=== PATIENT | female | born 1935 | race Caucasian/White ===

== ENCOUNTER 2019-06-12 20:44 | Inpatient (IN) | payer MEDICARE, OTHER ==
[2019-06-12] MEDS ORDERED: HYDROmorphone 0.5 MG/0.5 ML Syringe IVPUSH ONE ×2 (20:56→21:47)
[2019-06-12] MEDS ORDERED: Dextrose 5%-0.9% NaCl 1,000 ML IV SCH ×2 (21:00→23:45)
--- NOTE | 2019-06-12 21:03 | EDM.PDOC ---
ED HPI GENERAL MEDICAL PROBLEM - General Chief Complaint: Trauma Stated Complaint: [facility] Time Seen by Provider: 06/12/19 20:50 Source of Information: Reports: Patient, EMS, Family History Limitations: Reports: No Limitations - History of Present Illness INITIAL COMMENTS - FREE TEXT/NARRATIVE: 84-year-old female presents to the ED per [facility] after falling at home. She was able to use her cell phone to summon her grandsons and her daughter to for help. They did go to her residence and found that she was unable to stand or bear any weight on the right hip due to severe pain. When paramedics arrived however she was standing on her left leg and not putting any weight on the right side. She was being held up by her grandson and daughter. Therefore the ambulance was summoned. She states she did hit the back of her head ,shebelieves on the dresser and has a small hematoma right occipital scalp. History suggests that she is on Plavix daily due to peripheral vascular disease and previous vascular surgery left femoral artery with I believe a graft placement. Also had recent surgery to her right arm for a tendon rupture on the right fifth finger. Weeks ago and she is in a splint on the right arm. Dr Strauss did this surgery at [place] is some form of tendon repair in concert with the fourth extensor tendon. Paramedics did give her Zofran 4 mg IV and pain medication of which I am not sure. Onset: Today Onset Date: 06/12/19 Onset Time: 19:50 Duration: Minutes:, Getting Worse Location: Reports: Head, Lower Extremity, Right Quality: Reports: Ache (Right hip pain), Throbbing Severity: Severe Improves with: Reports: Rest Worsens with: Reports: Movement Context: Reports: Other (Simply lost her balance and fell at home was folding some clothes.). Denies: Activity, Exercise, Lifting, Sick Contact, Trauma Associated Symptoms: Reports: No Other Symptoms, Loss of Appetite (Appetite is been poor since right arm surgery 3 weeks ago and she is right-hand dominant and is in a splint. This is made), Shortness of Breath. 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 [Unable to Verify Home Med List] 06/12/19 [History] Past Medical History Cardiovascular History: Reports: High Cholesterol, Hypertension, PVD (She has had severe peripheral vascular disease involving her left lower extremity and has had a graft placed in the left femoral artery.) Respiratory History: Reports: COPD (Not on oxygen.) Endocrine/Metabolic History: Reports: Osteopenia, Osteoporosis - Past Surgical History Female Surgical History: Reports: Hysterectomy, Salpingo-Oophorectomy ( Bilateral) Musculoskeletal Surgical History: Reports: Other (See Below) (Recent extensor tendon repair dorsal aspect of right hand. She states she was putting her hand into a glove and felt sudden onset of pain in her right fifth dorsal finger. Apparently she was identified to have ruptured the extensor tendon and she's had some form of tendon repair by Dr. Strauss in concert with the right fourth extensor tendon. The surgery was performed about 3 weeks ago and she remains in a splint on the right upper extremity) Social & Family History - Living Situation & Occupation Living situation: Reports: Occupation: Employed (He is still working 45 hours a week.) Review of Systems - Review of Systems Review Of Systems: See Below Constitutional: Denies: Chills, Diaphoresis, Fever, Weakness, Other Eyes: Reports: No Symptoms Ears: Reports: No Symptoms Nose: Reports: No Symptoms Mouth/Throat: Reports: No Symptoms Respiratory: Reports: Shortness of Breath, Cough (Chronic minimal cough nonproductive). Denies: Wheezing, Pleuritic Chest Pain (On exertion), Sputum Cardiovascular: Denies: Chest Pain, Edema, Irregular Heart Rate, Lightheadedness , Palpitations, Syncope, Other GI/Abdominal: Reports: Other (Kathryn positive constipation particularly as of late she believes due to not eating as normal as she regularly does since right arm surgery) Genitourinary: Reports: Other (Urinary frequency with stress incontinence) Musculoskeletal: Reports: Neck Pain, Shoulder Pain, Back Pain, Joint Pain ( Knees and hips at times) Skin: Reports: No Symptoms, Bruising (There is easily as she is on Plavix and aspirin.) Neurological: Reports: No Symptoms Psychiatric: Reports: No Symptoms ED EXAM, GENERAL - Physical Exam Exam: See Below Exam Limited By: No Limitations General Appearance: Alert, WD/WN, No Apparent Distress, Moderate Distress Eye Exam: Bilateral Eye: Normal Inspection (Previous cataract extractions and intraocular lens placements.) Throat/Mouth: Normal Inspection, Normal Lips, Normal Oropharynx, Other Head: Other (He has a mild 2.5 cm hematoma over her right superior occipital process. Tender to palpation) Neck: Normal Inspection, Supple, Non-Tender, Full Range of Motion. No: Carotid Bruit, Lymphadenopathy (L), Lymphadenopathy (R), Thyromegaly Respiratory/Chest: No Respiratory Distress, Lungs Clear, No Accessory Muscle Use , Decreased Breath Sounds. No: Crackles, Rhonchi, Wheezing Cardiovascular: No Edema (Frequent ectopic beats. Initially felt she was in a defibrillation but monitor shows frequent PACs), No Gallop, No JVD, Irregularly Irregular. No: Normal Peripheral Pulses (The decreased breath sounds to the lower lung isidro bilaterally.), Regular Rate, Rhythm Peripheral Pulses: 1+: Posterior Tibial (L), Posterior Tibial (R), Dorsalis Pedis (L), Dorsalis Pedis (R), 2+: Carotid (L), Carotid (R), Radial (L), Radial (R) GI/Abdominal: Normal Bowel Sounds, Soft, Non-Tender, No Organomegaly, No Abnormal Bruit, Pelvis Stable, Other (Right abdomen. Palpable left hemicolon. Well-healed Pfannenstiel incision from previous hysterectomy) Back Exam: Decreased Range of Motion, Other Extremities: Normal Inspection, No Pedal Edema, Other (She can barely lift the left leg off the gurney because it causes severe pain of the right hip. She is unable to lift the right leg off the gurney at all. The leg appears shortened and externally rotated compatible with fractured hip. When appreciated on palpation around the right hip .) Neurological: Alert, Oriented, CN II-XII Intact, Normal Cognition Psychiatric: Normal Affect, Normal Mood Skin Exam: Warm, Dry, Intact, Normal Color, No Rash EKG INTERPRETATION EKG Date: 06/12/19 Time: 21:33 Rhythm: NSR Rate (Beats/Min): 85 (Reprinted premature atrial contractions clinically.) [place]: Normal P-Wave: Enlarged (Consider biatrial hypertrophy.) QRS: Other (Early R-wave transition consider right ventricular hypertrophy/ septal hypertrophy pattern.) ST-T: Other (There is a diffuse early repolarization pattern throughout all leads.) QT: Normal EKG Interpretation Comments: Abnormal ECG Course - Vital Signs Last Recorded V/S: Last Vital Signs Temp 36.7 C 06/12/19 21:53 Pulse Resp 15 06/12/19 21:53 BP 138/65 06/12/19 21:53 Pulse Ox 92 L 06/12/19 21:53 - Orders/Labs/Meds Orders: Active Orders 24 hr Category Date Time Status EKG Documentation Completion [RC] STAT Care 06/12/19 20:57 Inactive EKG Documentation Completion [RC] STAT Care 06/12/19 21:00 Active Mendez Catheter Insertion [Insert Urinary Catheter] [OM. Care 06/12/19 21:00 Ordered PC] Q24H Urinary Catheter Assessment [RC] ASDIRECTED Care 06/12/19 20:59 Active Chest 1V Frontal [CR] Stat Exams 06/12/19 20:57 Taken Femur Min 2V Rt [CR] Stat Exams 06/12/19 21:02 Taken Head wo Cont [CT] Stat Exams 06/12/19 21:00 Taken Pelvis 1V or 2V [CR] Stat Exams 06/12/19 21:01 Taken MAGNESIUM [CHEM] AM Lab 06/13/19 05:11 Ordered MAGNESIUM [CHEM] AM Lab 06/14/19 05:11 Ordered MAGNESIUM [CHEM] AM Lab 06/15/19 05:11 Ordered Dextrose 5%-0.9% NaCl [Dextrose 5%-Normal Saline] 1,000 Med 06/12/19 21:00 Active ml IV ASDIRECTED Medication Orders Dextrose/Sodium Chloride (Dextrose 5%-Normal Saline) 1,000 mls @ 150 mls/hr IV ASDIRECTED MAYNOR Last Admin: 06/12/19 21:38 Dose: 150 mls/hr Labs: Laboratory Tests 06/12/19 06/12/19 06/12/19 Range/Units 20:52 20:57 20:57 WBC 8.72 (3.98-10.04) K/mm3 RBC 4.37 (3.98-5.22) M/mm3 Hgb 12.7 (11.2-15.7) gm/dl Hct 38.9 (34.1-44.9) % MCV 89.0 (79.4-94.8) fl MCH 29.1 (25.6-32.2) pg MCHC 32.6 (32.2-35.5) g/dl RDW Std Deviation 40.9 (36.4-46.3) fL Plt Count 324 (182-369) K/mm3 MPV 10.7 (9.4-12.3) fl Neut % (Auto) 66.4 (34.0-71.1) % Lymph % (Auto) 16.2 L (19.3-51.7) % Freestone % (Auto) 13.4 H (4.7-12.5) % Eos % (Auto) 3.1 (0.7-5.8) Baso % (Auto) 0.3 (0.1-1.2) % Neut # (Auto) 5.79 (1.56-6.13) K/mm3 Lymph # (Auto) 1.41 (1.18-3.74) K/mm3 Fre[place] # (Auto) 1.17 H (0.24-0.36) K/mm3 Eos # (Auto) 0.27 (0.04-0.36) K/mm3 Baso # (Auto) 0.03 (0.01-0.08) K/mm3 PT 10.9 (9.7-12.0) SECONDS INR 1.00 APTT (22-31) SECONDS Sodium (136-145) mEq/L Potassium (3.5-5.1) mEq/L Chloride (98-107) mEq/L Carbon Dioxide (21-32) mEq/L Anion Gap (5-15) BUN (7-18) mg/dL Creatinine (0.55-1.02) mg/dL Est Cr Clr Drug Dosing Estimated GFR (MDRD) (>60) mL/min BUN/Creatinine Ratio (14-18) Glucose (83-115) mg/dL Calcium (8.5-10.1) mg/dL Magnesium 2.1 (1.8-2.4) mg/dl Total Bilirubin (0.2-1.0) mg/dL AST (15-37) U/L ALT (14-59) U/L Alkaline Phosphatase (46-116) U/L NT-Pro-B Natriuret Pep (0-450) pg/mL Total Protein (6.4-8.2) g/dl Albumin (3.4-5.0) g/dl Globulin gm/dL Albumin/Globulin Ratio (1-2) Urine Color (Yellow) Urine Appearance (Clear) Urine pH (5.0-8.0) Ur Specific Odem (1.005-1.030) Urine Protein (Negative) Urine Glucose (UA) (Negative) Urine Ketones (Negative) Urine Occult Blood (Negative) Urine Nitrite (Negative) Urine Bilirubin (Negative) Urine Urobilinogen (0.2-1.0) Ur Leukocyte Esterase (Negative) Urine RBC (0-5) /hpf Urine WBC (0-5) /hpf Ur Squamous Epith Cells (0-5) /hpf Urine Bacteria (FEW) /hpf Urine Mucus (FEW) /hpf 06/12/19 06/12/19 06/12/19 Range/Units 20:57 20:57 20:57 WBC (3.98-10.04) K/mm3 RBC (3.98-5.22) M/mm3 Hgb (11.2-15.7) gm/dl Hct (34.1-44.9) % MCV (79.4-94.8) fl MCH (25.6-32.2) pg MCHC (32.2-35.5) g/dl RDW Std Deviation (36.4-46.3) fL Plt Count (182-369) K/mm3 MPV (9.4-12.3) fl Neut % (Auto) (34.0-71.1) % Lymph % (Auto) (19.3-51.7) % Fre[place] % (Auto) (4.7-12.5) % Eos % (Auto) (0.7-5.8) Baso % (Auto) (0.1-1.2) % Neut # (Auto) (1.56-6.13) K/mm3 Lymph # (Auto) (1.18-3.74) K/mm3 [place] # (Auto) (0.24-0.36) K/mm3 Eos # (Auto) (0.04-0.36) K/mm3 Baso # (Auto) (0.01-0.08) K/mm3 PT (9.7-12.0) SECONDS INR APTT 27 (22-31) SECONDS Sodium 134 L (136-145) mEq/L Potassium 3.7 (3.5-5.1) mEq/L Chloride 97 L (98-107) mEq/L Carbon Dioxide 27 (21-32) mEq/L Anion Gap 13.7 (5-15) BUN 18 (7-18) mg/dL Creatinine 0.9 (0.55-1.02) mg/dL Est Cr Clr Drug Dosing TNP Estimated GFR (MDRD) 59 (>60) mL/min BUN/Creatinine Ratio 20.0 H (14-18) Glucose 149 H (83-115) mg/dL Calcium 9.2 (8.5-10.1) mg/dL Magnesium (1.8-2.4) mg/dl Total Bilirubin 0.4 (0.2-1.0) mg/dL AST 34 (15-37) U/L ALT 31 (14-59) U/L Alkaline Phosphatase 112 (46-116) U/L NT-Pro-B Natriuret Pep 297 (0-450) pg/mL Total Protein 7.0 (6.4-8.2) g/dl Albumin 3.3 L (3.4-5.0) g/dl Globulin 3.7 gm/dL Albumin/Globulin Ratio 0.9 L (1-2) Urine Color (Yellow) Urine Appearance (Clear) Urine pH (5.0-8.0) Ur Specific Odem (1.005-1.030) Urine Protein (Negative) Urine Glucose (UA) (Negative) Urine Ketones (Negative) Urine Occult Blood (Negative) Urine Nitrite (Negative) Urine Bilirubin (Negative) Urine Urobilinogen (0.2-1.0) Ur Leukocyte Esterase (Negative) Urine RBC (0-5) /hpf Urine WBC (0-5) /hpf Ur Squamous Epith Cells (0-5) /hpf Urine Bacteria (FEW) /hpf Urine Mucus (FEW) /hpf 06/12/19 Range/Units 21:45 WBC (3.98-10.04) K/mm3 RBC (3.98-5.22) M/mm3 Hgb (11.2-15.7) gm/dl Hct (34.1-44.9) % MCV (79.4-94.8) fl MCH (25.6-32.2) pg MCHC (32.2-35.5) g/dl RDW Std Deviation (36.4-46.3) fL Plt Count (182-369) K/mm3 MPV (9.4-12.3) fl Neut % (Auto) (34.0-71.1) % Lymph % (Auto) (19.3-51.7) % [place] % (Auto) (4.7-12.5) % Eos % (Auto) (0.7-5.8) Baso % (Auto) (0.1-1.2) % Neut # (Auto) (1.56-6.13) K/mm3 Lymph # (Auto) (1.18-3.74) K/mm3 [place] # (Auto) (0.24-0.36) K/mm3 Eos # (Auto) (0.04-0.36) K/mm3 Baso # (Auto) (0.01-0.08) K/mm3 PT (9.7-12.0) SECONDS INR APTT (22-31) SECONDS Sodium (136-145) mEq/L Potassium (3.5-5.1) mEq/L Chloride (98-107) mEq/L Carbon Dioxide (21-32) mEq/L Anion Gap (5-15) BUN (7-18) mg/dL Creatinine (0.55-1.02) mg/dL Est Cr Clr Drug Dosing Estimated GFR (MDRD) (>60) mL/min BUN/Creatinine Ratio (14-18) Glucose (83-115) mg/dL Calcium (8.5-10.1) mg/dL Magnesium (1.8-2.4) mg/dl Total Bilirubin (0.2-1.0) mg/dL AST (15-37) U/L ALT (14-59) U/L Alkaline Phosphatase (46-116) U/L NT-Pro-B Natriuret Pep (0-450) pg/mL Total Protein (6.4-8.2) g/dl Albumin (3.4-5.0) g/dl Globulin gm/dL Albumin/Globulin Ratio (1-2) Urine Color Yellow (Yellow) Urine Appearance Clear (Clear) Urine pH 7.0 (5.0-8.0) Ur Specific Odem 1.020 (1.005-1.030) Urine Protein Negative (Negative) Urine Glucose (UA) Negative (Negative) Urine Ketones Trace H (Negative) Urine Occult Blood Negative (Negative) Urine Nitrite Negative (Negative) Urine Bilirubin Negative (Negative) Urine Urobilinogen 0.2 (0.2-1.0) Ur Leukocyte Esterase Negative (Negative) Urine RBC 0-5 (0-5) /hpf Urine WBC Not seen (0-5) /hpf Ur Squamous Epith Cells 0-5 (0-5) /hpf Urine Bacteria Rare (FEW) /hpf Urine Mucus Few (FEW) /hpf Meds: Medications Generic Name Dose Route Start Last Admin Trade Name Freq PRN Reason Stop Dose Admin Dextrose/Sodium Chloride 1,000 mls @ 150 mls/hr 06/12/19 21:00 06/12/19 21:38 Dextrose 5%-Normal Saline IV 150 mls/hr ASDIRECTED MAYNOR Administration Discontinued Medications Generic Name Dose Route Start Last Admin Trade Name Freq PRN Reason Stop Dose Admin Hydromorphone HCl 0.25 mg 06/12/19 20:56 06/12/19 21:06 Dilaudid IVPUSH 06/12/19 20:57 0.25 mg ONETIME ONE Administration Hydromorphone HCl 0.25 mg 06/12/19 21:47 06/12/19 21:48 Dilaudid IVPUSH 06/12/19 21:48 0.25 mg ONETIME ONE Administration - Radiology Interpretation Free Text/Narrative:: 84-year-old female presents to the ED per [facility] after suffering a fall in her own home this evening. He simply lost her balance while folding close and fell in her bedroom. She struck the back of her right hand on the dresser with no loss of conscious. She landed hard on her right hip and was unable to get up from the floor. Luckily she had her cell phone nearby and she was able to call her grandson and daughter for help. They attended her and identified that she could not stand or bear weight on the right side and therefore called the ambulance. She denies any loss of consciousness. She is on Plavix daily because of peripheral vascular disease and a baby aspirin. Examination reveals a small hematoma right occipital scalp. No injuries to the upper extremities. Right hand and arm are immobilized in a splint after she has had extensor tendon repair on the dorsal right hand 3 weeks ago involving the fifth and fourth extensor tendons. Soundly she ruptured the fifth extensor tendon simply by putting her hand into a glove. She has been in the splint for about 3 weeks. Of note she is right-hand dominant. His is made like difficulty in terms of getting to the bathroom and preparing food. Examination of her right lower extremity shows shortening and external rotation of the right hip and inability lift the leg from the gurney indicating a suspect right hip fracture. Plan she will have CT head done since she is on Plavix and likely is going to need surgical repair of her right hip. A chest x-ray will be done preoperatively. She has a history of COPD. Pelvis x-ray and right femur x-ray will be done as well. She will have routine lab work in preparation for potential surgery. Given Dilaudid 0.25 mg IV for further pain relief - Re-Assessments/Exams Free Text/Narrative Re-Assessment/Exam: 06/12/19 21:48 CT of the brain reveals age-appropriate degenerative changes with small vessel ischemic changes in both basal ganglia. Slight dilatation of the lateral ventricles. No skull fracture identified. Note cranial bleeding or mass effect identified. Chest x-ray reveals stigmata of COPD with marked hyperinflation of both lung isidro. There is some sclerosis of the aortic arch. Cardiac silhouette is normal. There is slight blunting of left costophrenic angle. No obvious rib fractures identified. Treated the pelvis reveals no abnormalities of the bones are quite osteopenic. X-ray of the right femur reveals a femoral neck fracture on the right side. This correlates with clinical exam. 06/12/19 21:56 Labs reveal a normal white count at 8.72 with a auto differential of 66% neutrophils. Hemoglobin is 12.7 with hematocrit of 38.9. MCV is 89.0. Platelet count 324,000. PT is 10.9 with an INR of 1.0. PTT is 27. Sodium slightly low at 134 with a potassium of 3.7. Chloride is 97 with a bicarbonate 27. And a gap is 13.7 BUNs 18. Creatinine is 0.9 with a GFR of 59. Glucose 149. Calcium is 9.2 liver function is normal. BNP is 297. Total protein 7.0 within oh be fraction of 3.3. Magnesium level is pending. I discussed the case with and he believes that he could do a total hip replacement for her on Monday when she is off the Plavix for 2 days. She takes the Plavix in the mornings. Does the case with Dr. Frias tenon machine operator hospitalist and I will write orders for admission to the hospital this time. Her another dose of Dilaudid 0.25 mg while in the ED. I discussed the findings with her family including her grandson and daughter and the patient and answered all their questions. Departure - Departure Time of Disposition: 22:20 Disposition: Admitted As Inpatient 64 Condition: Fair Clinical Impression: Peripheral vascular disease, COPD not affecting current episode of care, Minor closed head injury Fracture of hip, right, closed Qualifiers: Encounter type: initial encounter Qualified Code(s): S72.001A - Fracture of unspecified part of neck of right femur, initial encounter for closed fracture - Discharge Information *PRESCRIPTION DRUG MONITORING PROGRAM REVIEWED*: Not Applicable *COPY OF PRESCRIPTION DRUG MONITORING REPORT IN PATIENT BRI: Not Applicable Sepsis Event Note - Evaluation Sepsis Screening Result: No Definite Risk - Focused Exam Vital Signs: Vital Signs Temp Resp BP Pulse Ox 06/12/19 21:53 36.7 C 15 138/65 92 L Date Exam was Performed: 06/12/19 Time Exam was Performed: 22:46 - My Orders Last 24 Hours: My Active Orders 06/12/19 20:57 EKG Documentation Completion [RC] STAT Chest 1V Frontal [CR] Stat 06/12/19 20:59 Urinary Catheter Assessment [RC] ASDIRECTED 06/12/19 21:00 EKG Documentation Completion [RC] STAT Mendez Catheter Insertion [Insert Urinary Catheter] [OM.PC] Q24H Head wo Cont [CT] Stat Dextrose 5%-0.9% NaCl [Dextrose 5%-Normal Saline] 1,000 ml IV ASDIRECTED 06/12/19 21:01 Pelvis 1V or 2V [CR] Stat 06/12/19 21:02 Femur Min 2V Rt [CR] Stat 06/13/19 05:11 MAGNESIUM [CHEM] AM 06/14/19 05:11 MAGNESIUM [CHEM] AM 06/15/19 05:11 MAGNESIUM [CHEM] AM - Assessment/Plan Last 24 Hours: My Active Orders 06/12/19 20:57 EKG Documentation Completion [RC] STAT Chest 1V Frontal [CR] Stat 06/12/19 20:59 Urinary Catheter Assessment [RC] ASDIRECTED 06/12/19 21:00 EKG Documentation Completion [RC] STAT Mendez Catheter Insertion [Insert Urinary Catheter] [OM.PC] Q24H Head wo Cont [CT] Stat Dextrose 5%-0.9% NaCl [Dextrose 5%-Normal Saline] 1,000 ml IV ASDIRECTED 06/12/19 21:01 Pelvis 1V or 2V [CR] Stat 06/12/19 21:02 Femur Min 2V Rt [CR] Stat 06/13/19 05:11 MAGNESIUM [CHEM] AM 06/14/19 05:11 MAGNESIUM [CHEM] AM 06/15/19 05:11 MAGNESIUM [CHEM] AM
[2019-06-12] MEDS ORDERED: HYDROmorphone 0.5 MG/0.5 ML Syringe IVPUSH PRN (23:19)
[2019-06-12] MEDS ORDERED: Ondansetron 4 MG/2 ML SDV IVPUSH PRN (23:20)
[2019-06-13] MEDS ORDERED: Magnesium Sulfate/Water 2 GM in Premix Bag 1 BAG IV ONE (06:53)
[2019-06-13] MEDS: Dextrose 5%-0.9% NaCl 1,000 ML IV SCH ×2 (07:07→17:20)
[2019-06-13] MEDS: Acetaminophen/oxyCODONE 325-5 MG Tab PO PRN ×2 (07:11→11:33)
--- NOTE | 2019-06-13 07:13 | PCM.HP.2 ---
H&P History of Present Illness - General Date of Service: 06/13/19 Admit Problem/Dx: Admission Diagnosis/Problem Admission Diagnosis/Problem Hip fracture requiring operative repair Source of Information: Patient, Provider, RN, RN Notes Reviewed History Limitations: Reports: No Limitations - History of Present Illness Initial Comments - Free Text/Narative: Sherri Adkins is an 84 yo female who presented to ED on 06/12/2019 via [facility] after a fall at home. Reports she was folding close and simply lost her balance resulting in a fall on her left side. After a fall she was unable to bear weight on the right side. She reports she did hit her head on the dresser and does have a small hematoma to the right scalp. She is on Plavix daily due to PVD and a previous vascular surgery. She also recently underwent right fifth digit tendon repair with Dr. Strauss at [facility] in [place]. He has resulted in her right hand hand being in an immobilizer. She reports she is supposed to wear this for 3 weeks. She is right-hand dominant. In route paramedics gave her Zofran and a pain medication. In the ED temp was 36.7. Respirations 15. Blood pressure 138/65. Pulse ox 92% . Twelve-lead EKG is obtained showing a sinus rhythm 85 bpm with enlarged P waves and early R wave transition. Frequent PACs. There is also a diffuse early repolarization pattern throughout all leads. CBC is obtained and is unremarkable with a WBC of 8.72. Hemoglobin 12.7. Hematocrit 38.9. Blood sugar 324,000. PT is 10.9. INR 1.0. Magnesium is 2.1. APTT is 27. Sodium is slightly low at 134. Potassium 3.4. Chloride 97. Carbon oxide 27. Anion gap is 13.7. BUN is 18. Creatinine 0.9. Glucose is high at 149. Calcium 9.2. Bilirubin 0.4. AST is 34, ALT 31, alk phos 112. proBNP is 297. Albumin is slightly low at 3.3. UA is negative however few mucus is noted. She started on D5 NS and given Dilaudid for pain. Head CT is obtained which shows mild senescent change and nothing acute. Femur x-ray is obtained and shows a mildly displaced subcapital fracture within the right hip. Vascular calcification is also noted. Bony structures are osteopenic. Pelvic x-rays obtained showing a displaced right hip fracture and other nonacute findings. X- rays obtained showing tortuous thoracic aorta and right chest skinfold. There is blunting of the left lateral costophrenic angle which is believed to be chronic. Carotid artery calcification and scoliosis of the spine are noted. Degenerative change of the right glenohumeral joint. No acute parenchymal change. Nothing acute is suspected. "A, orthopedic surgeon, is contacted and reports because the patient is on Plavix she should be admitted to the hospital and he will plan on surgery Monday around noon after she has been off of her Plavix for [address] Rivera, hospitalist, is then contacted who agrees to accept the patient. He carries a history of HLD, HTN, PVD, s/p left lower extremity femoral artery grafting, COPD, osteopenia, osteoporosis, s/p right fifth digit extensor tendon repair with remaining right upper extremity splinting, glaucoma, hx/o lung cancer. She subsequently admitted to the medical floor on telemetry plan for surgery Monday (06/14/19) around noon. Right Anterior Hip Pain Score (Numeric/FACES): 4 - Related Data Allergies/Adverse Reactions: Allergies Allergy/AdvReac Type Severity Reaction Status Date / Time Unable to Assess Allergy Verified 06/12/19 21:31 Home Medications: Home Meds Aspirin [Halfprin] 81 mg PO DAILY 06/13/19 [History] Calcium Carbonate/Vitamin D3 [Calcium 600 + Vit D 200] 2 tab PO BID 06/13/19 [ History] Clopidogrel [Plavix] 75 mg PO DAILY 06/13/19 [History] Famotidine 20 mg PO BEDTIME 06/13/19 [History] Fluticasone Propionate [Flovent HFA 110 MCG] 1 puff INH BID 06/13/19 [History] Latanoprost [Xalatan] 1 drop EYEBOTH BEDTIME 06/13/19 [History] Magnesium Oxide 400 mg PO DAILY 06/13/19 [History] Potassium Chloride 30 meq PO DAILY 06/13/19 [History] Rosuvastatin [Crestor] 10 mg PO BEDTIME 06/13/19 [History] Salmeterol Xinafoate [Serevent Diskus] 1 blister INH BID 06/13/19 [History] Triamcinolone Acetonide [Triamcinolone Acetonide 0.1% Crm] 1 dose TOP BID PRN [History] amLODIPine [Norvasc] 7.5 mg PO DAILY 06/13/19 [History] guaiFENesin [Mucinex] 1,200 mg PO BID PRN 06/13/19 [History] hydroCHLOROthiazide [Hydrochlorothiazide] 25 mg PO DAILY 06/13/19 [History] Past Medical History HEENT History: Reports: Glaucoma, Impaired Vision Cardiovascular History: Reports: High Cholesterol, Hypertension, PVD (She has had severe peripheral vascular disease involving her left lower extremity and has had a graft placed in the left femoral artery.) Other Cardiovascular History: reports having clots removed from left leg Respiratory History: Reports: COPD (Not on oxygen.) Other OB/BYN History: hysterectomy Endocrine/Metabolic History: Reports: Osteopenia, Osteoporosis Oncologic (Cancer) History: Reports: Lung - Infectious Disease History Infectious Disease History: Reports: Influenza, Measles, Mumps, Pertussis ( Whooping Cough), Rubella - Past Surgical History Female Surgical History: Reports: Hysterectomy, Salpingo-Oophorectomy ( Bilateral) Musculoskeletal Surgical History: Reports: Other (See Below) (Recent extensor tendon repair dorsal aspect of right hand. She states she was putting her hand into a glove and felt sudden onset of pain in her right fifth dorsal finger. Apparently she was identified to have ruptured the extensor tendon and she's had some form of tendon repair by Dr. Strauss in concert with the right fourth extensor tendon. The surgery was performed about 3 weeks ago and she remains in a splint on the right upper extremity) Social & Family History - Family History Family Medical History: Noncontributory - Tobacco Use Smoking Status *Q: Former Smoker Used Tobacco, but Quit: Yes Month/Year Tobacco Last Used: 1987 Second Hand Smoke Exposure: No - Caffeine Use Caffeine Use: Reports: Coffee Other Caffeine Use: 1 cup in the morning - Recreational Drug Use Recreational Drug Use: No - Living Situation & Occupation Living situation: Reports: Occupation: Employed (He is still working 45 hours a week.) H&P Review of Systems - Review of Systems: Review Of Systems: See Below General: Reports: No Symptoms. Denies: Fever, Chills, Malaise, Weakness, Fatigue HEENT: Reports: No Symptoms. Denies: Headaches, Sore Throat Pulmonary: Reports: No Symptoms. Denies: Shortness of Breath, Wheezing, Pleuritic Chest Pain, Cough, Hemoptysis Cardiovascular: Reports: No Symptoms. Denies: Chest Pain, Palpitations, Dyspnea on Exertion, Lightheadedness Gastrointestinal: Reports: Constipation (chronic ). Denies: Abdominal Pain, Diarrhea, Nausea, Vomiting Genitourinary: Reports: No Symptoms. Denies: Pain Musculoskeletal: Reports: Shoulder Pain (chronic ), Back Pain (chroinc ), Hand Pain (right ), Leg Pain (right ), Joint Pain (chronic knee and hip) Skin: Reports: No Symptoms. Denies: Cyanosis Psychiatric: Reports: No Symptoms. Denies: Confusion Neurological: Reports: Difficulty Walking, Gait Disturbance. Denies: Pre- Existing Deficit Hematologic/Lymphatic: Reports: No Symptoms Immunologic: Reports: No Symptoms Exam - Exam Exam: See Below - Vital Signs Vital Signs: Last Vital Signs Temp 98.2 F 06/13/19 04:24 Pulse 78 06/13/19 04:24 Resp 18 06/13/19 04:24 BP 133/46 L 06/13/19 04:24 Pulse Ox 99 06/13/19 04:24 Weight: 122 lb 5 oz - Exam Quality Assessment: Supplemental Oxygen (2L), DVT Prophylaxis General: Alert, Oriented, Cooperative. No: Moderate Distress (mild laying down , severe pain with movement ) HEENT: Conjunctiva Clear, EACs Clear, EOMI, Hearing Intact, Mucosa Moist & [place] , Nares Patent, Posterior Pharynx Clear Neck: Supple, Trachea Midline Lungs: Clear to Auscultation, Normal Respiratory Effort, Decreased Breath Sounds. No: Crackles, Rales, Rhonchi, Wheezing Cardiovascular: Irregular Rhythm (2/2 frequent PACs) GI/Abdominal Exam: Normal Bowel Sounds, Soft, Non-Tender, No Distention (Female) Exam: Deferred Rectal (Female) Exam: Deferred Extremities: No Pedal Edema, Normal Capillary Refill, Leg Pain (right hip/leg pain ), Limited Range of Motion, Other (Right leg shortened and externally rotated ) Peripheral Pulses: 1+: Dorsalis Pedis (L), Dorsalis Pedis (R), 2+: Radial (L), Radial (R) Skin: Warm, Dry, Intact Neurological: Cranial Nerves Intact (grossly ) Neuro Extensive - Mental Status: Alert, Oriented x3, Normal Mood/Affect - Patient Data Lab Results Last 24 hrs: Laboratory Results - last 24 hr 06/12/19 06/12/19 06/12/19 Range/Units 20:52 20:57 20:57 WBC 8.72 (3.98-10.04) K/mm3 RBC 4.37 (3.98-5.22) M/mm3 Hgb 12.7 (11.2-15.7) gm/dl Hct 38.9 (34.1-44.9) % MCV 89.0 (79.4-94.8) fl MCH 29.1 (25.6-32.2) pg MCHC 32.6 (32.2-35.5) g/dl RDW Std Deviation 40.9 (36.4-46.3) fL Plt Count 324 (182-369) K/mm3 MPV 10.7 (9.4-12.3) fl Neut % (Auto) 66.4 (34.0-71.1) % Lymph % (Auto) 16.2 L (19.3-51.7) % [place] % (Auto) 13.4 H (4.7-12.5) % Eos % (Auto) 3.1 (0.7-5.8) Baso % (Auto) 0.3 (0.1-1.2) % Neut # (Auto) 5.79 (1.56-6.13) K/mm3 Lymph # (Auto) 1.41 (1.18-3.74) K/mm3 [place] # (Auto) 1.17 H (0.24-0.36) K/mm3 Eos # (Auto) 0.27 (0.04-0.36) K/mm3 Baso # (Auto) 0.03 (0.01-0.08) K/mm3 PT 10.9 (9.7-12.0) SECONDS INR 1.00 APTT (22-31) SECONDS Sodium (136-145) mEq/L Potassium (3.5-5.1) mEq/L Chloride (98-107) mEq/L Carbon Dioxide (21-32) mEq/L Anion Gap (5-15) BUN (7-18) mg/dL Creatinine (0.55-1.02) mg/dL Est Cr Clr Drug Dosing Estimated GFR (MDRD) (>60) mL/min BUN/Creatinine Ratio (14-18) Glucose (83-115) mg/dL Calcium (8.5-10.1) mg/dL Magnesium 2.1 (1.8-2.4) mg/dl Total Bilirubin (0.2-1.0) mg/dL AST (15-37) U/L ALT (14-59) U/L Alkaline Phosphatase (46-116) U/L NT-Pro-B Natriuret Pep (0-450) pg/mL Total Protein (6.4-8.2) g/dl Albumin (3.4-5.0) g/dl Globulin gm/dL Albumin/Globulin Ratio (1-2) Urine Color (Yellow) Urine Appearance (Clear) Urine pH (5.0-8.0) Ur Specific [place] (1.005-1.030) Urine Protein (Negative) Urine Glucose (UA) (Negative) Urine Ketones (Negative) Urine Occult Blood (Negative) Urine Nitrite (Negative) Urine Bilirubin (Negative) Urine Urobilinogen (0.2-1.0) Ur Leukocyte Esterase (Negative) Urine RBC (0-5) /hpf Urine WBC (0-5) /hpf Ur Squamous Epith Cells (0-5) /hpf Urine Bacteria (FEW) /hpf Urine Mucus (FEW) /hpf 06/12/19 06/12/19 06/12/19 Range/Units 20:57 20:57 20:57 WBC (3.98-10.04) K/mm3 RBC (3.98-5.22) M/mm3 Hgb (11.2-15.7) gm/dl Hct (34.1-44.9) % MCV (79.4-94.8) fl MCH (25.6-32.2) pg MCHC (32.2-35.5) g/dl RDW Std Deviation (36.4-46.3) fL Plt Count (182-369) K/mm3 MPV (9.4-12.3) fl Neut % (Auto) (34.0-71.1) % Lymph % (Auto) (19.3-51.7) % [place] % (Auto) (4.7-12.5) % Eos % (Auto) (0.7-5.8) Baso % (Auto) (0.1-1.2) % Neut # (Auto) (1.56-6.13) K/mm3 Lymph # (Auto) (1.18-3.74) K/mm3 [place] # (Auto) (0.24-0.36) K/mm3 Eos # (Auto) (0.04-0.36) K/mm3 Baso # (Auto) (0.01-0.08) K/mm3 PT (9.7-12.0) SECONDS INR APTT 27 (22-31) SECONDS Sodium 134 L (136-145) mEq/L Potassium 3.7 (3.5-5.1) mEq/L Chloride 97 L (98-107) mEq/L Carbon Dioxide 27 (21-32) mEq/L Anion Gap 13.7 (5-15) BUN 18 (7-18) mg/dL Creatinine 0.9 (0.55-1.02) mg/dL Est Cr Clr Drug Dosing TNP Estimated GFR (MDRD) 59 (>60) mL/min BUN/Creatinine Ratio 20.0 H (14-18) Glucose 149 H (83-115) mg/dL Calcium 9.2 (8.5-10.1) mg/dL Magnesium (1.8-2.4) mg/dl Total Bilirubin 0.4 (0.2-1.0) mg/dL AST 34 (15-37) U/L ALT 31 (14-59) U/L Alkaline Phosphatase 112 (46-116) U/L NT-Pro-B Natriuret Pep 297 (0-450) pg/mL Total Protein 7.0 (6.4-8.2) g/dl Albumin 3.3 L (3.4-5.0) g/dl Globulin 3.7 gm/dL Albumin/Globulin Ratio 0.9 L (1-2) Urine Color (Yellow) Urine Appearance (Clear) Urine pH (5.0-8.0) Ur Specific [place] (1.005-1.030) Urine Protein (Negative) Urine Glucose (UA) (Negative) Urine Ketones (Negative) Urine Occult Blood (Negative) Urine Nitrite (Negative) Urine Bilirubin (Negative) Urine Urobilinogen (0.2-1.0) Ur Leukocyte Esterase (Negative) Urine RBC (0-5) /hpf Urine WBC (0-5) /hpf Ur Squamous Epith Cells (0-5) /hpf Urine Bacteria (FEW) /hpf Urine Mucus (FEW) /hpf 06/12/19 06/13/19 Range/Units 21:45 05:20 WBC (3.98-10.04) K/mm3 RBC (3.98-5.22) M/mm3 Hgb (11.2-15.7) gm/dl Hct (34.1-44.9) % MCV (79.4-94.8) fl MCH (25.6-32.2) pg MCHC (32.2-35.5) g/dl RDW Std Deviation (36.4-46.3) fL Plt Count (182-369) K/mm3 MPV (9.4-12.3) fl Neut % (Auto) (34.0-71.1) % Lymph % (Auto) (19.3-51.7) % [place] % (Auto) (4.7-12.5) % Eos % (Auto) (0.7-5.8) Baso % (Auto) (0.1-1.2) % Neut # (Auto) (1.56-6.13) K/mm3 Lymph # (Auto) (1.18-3.74) K/mm3 [place] # (Auto) (0.24-0.36) K/mm3 Eos # (Auto) (0.04-0.36) K/mm3 Baso # (Auto) (0.01-0.08) K/mm3 PT (9.7-12.0) SECONDS INR APTT (22-31) SECONDS Sodium (136-145) mEq/L Potassium (3.5-5.1) mEq/L Chloride (98-107) mEq/L Carbon Dioxide (21-32) mEq/L Anion Gap (5-15) BUN (7-18) mg/dL Creatinine (0.55-1.02) mg/dL Est Cr Clr Drug Dosing Estimated GFR (MDRD) (>60) mL/min BUN/Creatinine Ratio (14-18) Glucose (83-115) mg/dL Calcium (8.5-10.1) mg/dL Magnesium 1.7 L (1.8-2.4) mg/dl Total Bilirubin (0.2-1.0) mg/dL AST (15-37) U/L ALT (14-59) U/L Alkaline Phosphatase (46-116) U/L NT-Pro-B Natriuret Pep (0-450) pg/mL Total Protein (6.4-8.2) g/dl Albumin (3.4-5.0) g/dl Globulin gm/dL Albumin/Globulin Ratio (1-2) Urine Color Yellow (Yellow) Urine Appearance Clear (Clear) Urine pH 7.0 (5.0-8.0) Ur Specific [place] 1.020 (1.005-1.030) Urine Protein Negative (Negative) Urine Glucose (UA) Negative (Negative) Urine Ketones Trace H (Negative) Urine Occult Blood Negative (Negative) Urine Nitrite Negative (Negative) Urine Bilirubin Negative (Negative) Urine Urobilinogen 0.2 (0.2-1.0) Ur Leukocyte Esterase Negative (Negative) Urine RBC 0-5 (0-5) /hpf Urine WBC Not seen (0-5) /hpf Ur Squamous Epith Cells 0-5 (0-5) /hpf Urine Bacteria Rare (FEW) /hpf Urine Mucus Few (FEW) /hpf Result Diagrams: 06/12/19 20:57 06/12/19 20:57 Sepsis Event Note - Evaluation Sepsis Screening Result: No Definite Risk - Focused Exam Vital Signs: Vital Signs Temp Temp Pulse Resp BP BP Pulse Ox 06/13/19 04:24 98.2 F 78 18 133/46 L 99 06/12/19 23:52 06/12/19 23:40 06/12/19 23:33 98.4 F 90 18 130/49 L 81 L 06/12/19 21:53 98.1 F 15 138/65 92 L Pulse Ox Pulse Ox 06/13/19 04:24 06/12/19 23:52 90 L 06/12/19 23:40 81 L 06/12/19 23:33 06/12/19 21:53 Date Exam was Performed: 06/13/19 Time Exam was Performed: 11:54 - Problem List (1) Osteopenia SNOMED Code(s): 800476596 ICD Code: M85.80 - OTH DISRD OF BONE DENSITY AND STRUCTURE, UNSPECIFIED SITE Status: Chronic Priority: Medium Current Visit: Yes Qualifiers: Osteopenia location: unspecified Qualified Code(s): M85.80 - Other specified disorders of bone density and structure, unspecified site (2) HLD (hyperlipidemia) SNOMED Code(s): 29442493 ICD Code: E78.5 - HYPERLIPIDEMIA, UNSPECIFIED Status: Chronic Priority: Low Current Visit: No Qualifiers: Hyperlipidemia type: unspecified Qualified Code(s): E78.5 - Hyperlipidemia , unspecified (3) HTN (hypertension) SNOMED Code(s): 07300148 ICD Code: I10 - ESSENTIAL (PRIMARY) HYPERTENSION Status: Chronic Priority : Medium Current Visit: No Qualifiers: Hypertension type: unspecified Qualified Code(s): I10 - Essential (primary ) hypertension (4) Osteoporosis SNOMED Code(s): 96432526 ICD Code: M81.0 - AGE-RELATED OSTEOPOROSIS W/O CURRENT PATHOLOGICAL FRACTURE Status: Chronic Priority: Medium Current Visit: No (5) History of lung cancer SNOMED Code(s): 076930002, 648454376 ICD Code: Z85.118 - PERSONAL HISTORY OF MALIGNANT NEOPLASM OF BRONCHUS AND LUNG Status: Chronic Priority: Medium Current Visit: No (6) History of hand surgery SNOMED Code(s): 079630057, 016932981 ICD Code: Z98.890 - OTHER SPECIFIED POSTPROCEDURAL STATES Status: Chronic Priority: Medium Current Visit: Yes (7) Immobilizing cast in place SNOMED Code(s): 936454050 ICD Code: Z97.8 - PRESENCE OF OTHER SPECIFIED DEVICES Status: Chronic Priority: Medium Current Visit: Yes (8) COPD not affecting current episode of care SNOMED Code(s): 77611253 ICD Code: J44.9 - CHRONIC OBSTRUCTIVE PULMONARY DISEASE, UNSPECIFIED Status : Chronic Priority: Medium Current Visit: No (9) Fracture of hip, right, closed SNOMED Code(s): 751278475 ICD Code: S72.001A - FRACTURE OF UNSP PART OF NECK OF RIGHT FEMUR, INIT Status: Acute Priority: High Current Visit: Yes Qualifiers: Encounter type: initial encounter Qualified Code(s): S72.001A - Fracture of unspecified part of neck of right femur, initial encounter for closed fracture (10) Minor closed head injury SNOMED Code(s): 748630757, 814481332267 ICD Code: S00.90XA - UNSP SUPERFICIAL INJURY OF UNSP PART OF HEAD, INIT ENCNTR Status: Acute Priority: High Current Visit: Yes (11) Peripheral vascular disease SNOMED Code(s): 230011895 ICD Code: I73.9 - PERIPHERAL VASCULAR DISEASE, UNSPECIFIED Status: Chronic Priority: Medium Current Visit: No (12) Hypomagnesemia SNOMED Code(s): 937340687 ICD Code: E83.42 - HYPOMAGNESEMIA Status: Acute Priority: High Current Visit: Yes (13) Fall SNOMED Code(s): 6146847, 329197586 ICD Code: W19.XXXA - UNSPECIFIED FALL, INITIAL ENCOUNTER Status: Acute Priority: High Current Visit: Yes Qualifiers: Encounter type: initial encounter Qualified Code(s): W19.XXXA - Unspecified fall, initial encounter Problem List Initiated/Reviewed/Updated: Yes Orders Last 24hrs: Active Orders 24 hr Category Date Time Status Admission Status [Patient Status] [ADT] Routine ADT 06/12/19 22:20 Active Antiembolic Devices [RC] PER UNIT ROUTINE Care 06/13/19 06:30 Active Bedrest Bathroom Privileges [RC] ASDIRECTED Care 06/13/19 06:47 Active Bedrest [RC] ASDIRECTED Care 06/12/19 23:19 Active EKG Documentation Completion [RC] STAT Care 06/12/19 20:57 Inactive Insert Mendez Catheter [Insert Urinary Catheter] [OM.PC] Care 06/12/19 23:30 Ordered Q24H Intake and Output [RC] QSHIFT Care 06/13/19 06:47 Active Notify Provider Consults [RC] ASDIRECTED Care 06/13/19 06:51 Active Oxygen Therapy [RC] ASDIRECTED Care 06/12/19 23:23 Active Telemetry Monitoring [Cardiac Monitoring] [RC] . Care 06/12/19 23:18 Active DIRECTED VTE/DVT Education [RC] PER UNIT ROUTINE Care 06/13/19 06:47 Active Vital Signs [RC] Q4H Care 06/13/19 06:47 Active Consult to Case Management/Child Care Attendant School [CONS] Cons 06/13/19 06:47 Active Routine Consult to Physician [CONS] Routine Cons 06/13/19 06:51 Active Consult to Spiritual Care [CONS] Routine Cons 06/13/19 06:47 Active OT Evaluation and Treatment [CONS] Routine Cons 06/13/19 06:47 Active PT Evaluation and Treatment [CONS] Routine Cons 06/13/19 06:47 Active NPO After Midnight [Nothing per Oral After Midnight Diet 06/13/19 Breakfast Active Diet] [DIET] Regular Diet [DIET] Diet 06/13/19 Breakfast Active Chest 1V Frontal [CR] Stat Exams 06/12/19 20:57 Taken Femur Min 2V Rt [CR] Stat Exams 06/12/19 21:02 Taken Head wo Cont [CT] Stat Exams 06/12/19 21:00 Taken Pelvis 1V or 2V [CR] Stat Exams 06/12/19 21:01 Taken CBC WITH AUTO DIFF [HEME] AM Lab 06/14/19 05:11 Ordered CBC WITH AUTO DIFF [HEME] AM Lab 06/15/19 05:11 Ordered CBC WITH AUTO DIFF [HEME] AM Lab 06/16/19 05:11 Ordered CBC WITH AUTO DIFF [HEME] AM Lab 06/17/19 05:11 Ordered CMP [COMPREHENSIVE METABOLIC PN,CMP] [CHEM] AM Lab 06/14/19 05:11 Ordered CMP [COMPREHENSIVE METABOLIC PN,CMP] [CHEM] AM Lab 06/15/19 05:11 Ordered CMP [COMPREHENSIVE METABOLIC PN,CMP] [CHEM] AM Lab 06/16/19 05:11 Ordered CMP [COMPREHENSIVE METABOLIC PN,CMP] [CHEM] AM Lab 06/17/19 05:11 Ordered MAGNESIUM [CHEM] AM Lab 06/14/19 05:11 Ordered MAGNESIUM [CHEM] AM Lab 06/14/19 05:11 Ordered MAGNESIUM [CHEM] AM Lab 06/15/19 05:11 Ordered MAGNESIUM [CHEM] AM Lab 06/15/19 05:11 Ordered MAGNESIUM [CHEM] AM Lab 06/16/19 05:11 Ordered MAGNESIUM [CHEM] AM Lab 06/17/19 05:11 Ordered Acetaminophen [Tylenol] Med 06/13/19 06:47 Active 650 mg PO Q4H PRN Acetaminophen/oxyCODONE [Percocet 325-5 MG] Med 06/13/19 06:47 Active 1 tab PO Q4H PRN D5 1/2 NS w/ 20 mEq/L KCl 1,000 ml Med 06/13/19 09:30 Active IV ASDIRECTED Dextrose 5%-0.9% NaCl [Dextrose 5%-Normal Saline] 1,000 Med 06/13/19 04:30 Active ml IV ASDIRECTED HYDROmorphone [Dilaudid] Med 06/12/19 23:19 Active 0.25 mg IVPUSH Q2H PRN Magnesium Sulfate/Water [Magnesium Sulfate in Water Med 06/13/19 06:53 Active Premix] 2 gm Premix Bag 1 bag IV ONETIME Ondansetron [Zofran] Med 06/12/19 23:20 Active 4 mg IVPUSH Q6H PRN polyethylene glycoL 3350 [MiraLAX] Med 06/13/19 09:00 Active 17 gm PO DAILY SCD [Sequential Compression Device] [OM.PC] Routine Oth 06/13/19 06:30 Ordered Resuscitation Status Routine Resus Stat 06/12/19 23:18 Ordered Medication Orders Acetaminophen (Tylenol) 650 mg PO Q4H PRN PRN Reason: Pain (Mild 1-3)/fever Hydromorphone HCl (Dilaudid) 0.25 mg IVPUSH Q2H PRN PRN Reason: Pain Last Admin: 06/13/19 04:08 Dose: 0.25 mg Potassium Chloride/Dextrose/Sod Cl (D5 1/2 Ns W/ 20 Meq/L Kcl) 1,000 mls @ 100 mls/hr IV ASDIRECTED [facility] Dextrose/Sodium Chloride (Dextrose 5%-Normal Saline) 1,000 mls @ 100 mls/hr IV ASDIRECTED [facility] Last Admin: 06/13/19 07:07 Dose: 100 mls/hr Magnesium Sulfate 2 gm/ Premix 50 mls @ 25 mls/hr IV ONETIME ONE Stop: 06/13/19 08:52 Last Admin: 06/13/19 07:08 Dose: 25 mls/hr Ondansetron HCl (Zofran) 4 mg IVPUSH Q6H PRN PRN Reason: Nausea/Vomiting Oxycodone/Acetaminophen (Percocet 325-5 Mg) 1 tab PO Q4H PRN PRN Reason: Pain (moderate 4-6) Last Admin: 06/13/19 07:11 Dose: 1 tab Polyethylene Glycol (Miralax) 17 gm PO DAILY [facility] Assessment/Plan Comment:: I/P: Acute: Right hip fracture -Patient reports lost balance and fell -Baseline ambulatory, still works 40 hrs a week -Already has right hand immobilized 2/2 5th digit extensor tendon surgery as below -Unable to bear weight on right side. Right extremity shortened and externally rotated -Confirmed with hip and femur x-ray -CXR shows nothing acute -12-Lead EKG shows NSR with frequent PACs, Enlarged P-waves, Early R-wave transition, Diffuse early repolarization pattern -Hgb 12.7; Platelet 324,000, INR 1.00 -Dr. Grace, orthopedic surgeon contacted by ED - Plans surgical fixation on around noon -On home plavix and ASA- hold -Type and screen -NPO at midnight -IS -PT/OT -CM/SW - will likely require rehab SNF stay -Bedrest for now -Pain medications, muscle relaxants as ordered -Hx/o constipation - laxatives/stool softeners as ordered -2.4% risk of perioperative mortality S/P fall -Lost balance while folding clothes -Resulting in hip fx as above -Reports hit head on dresser -ED CT scan negative for acute change -CXR negative for acute change -Stable S/P Right 5th digit extensor tendon fixation -Reports took part of 4th digit tendon to repair 5th digit -Immobilizer in place -Stable Hypomagnesemia -Magnesium 1.7 -Supplement Chronic: HLD HTN PVD s/p left lower extremity femoral artery grafting COPD osteopenia osteoporosis s/p right fifth digit extensor tendon repair with remaining right upper extremity splinting glaucoma hx/o lung cancer Plan: Admit to M/S/P on telemetry Other orders as indicated above Home medications as directed Will likely need SNF rehab stay Spiritual care consult AM labs as ordered DVT prophylaxis: SCDs for now; GI prophylaxis: Home Pepcid Code status: Full code; PCP: Dr. Orta LOS: Likely will need to stay through weekend pending placement - Mortality Measure Prognosis:: Good
--- NOTE | 2019-06-13 08:00 | CR ---
Pelvis: AP view of the pelvis was obtained. Comparison: No prior pelvis exam. Displaced right subcapital hip fracture is again noted. Multiple surgical clips are seen within the left groin and within the medial left thigh. Joint spaces within both hips are preserved. Disc space narrowing is noted within the lower visualized lumbar spine. Bony structures are osteopenic. No other acute finding is seen. Impression: 1. Displaced right hip fracture. 2. Other nonacute findings as noted above. Diagnostic code #3 This report was dictated in [place] Standard Time
--- NOTE | 2019-06-13 08:00 | CR ---
Right femur: AP and lateral views of the right femur were obtained. Comparison: No prior femur study. Mildly displaced subcapital fracture within the right hip is seen. Bony structures are osteopenic. Mild joint space narrowing is seen medially within the right knee. Vascular calcification is noted. Impression: 1. Mildly displaced subcapital fracture within the right hip. 2. Other findings as noted above. Diagnostic code #3 This report was dictated in [place] Standard Time
--- NOTE | 2019-06-13 08:00 | CT ---
Head CT Technique: Multiple axial sections through the brain were obtained. Intravenous contrast was not utilized. Comparison: No prior intracranial imaging. Findings: Ventricles along with basal cisterns and sulci over the convexities are mildly prominent. Minimal diminished density is noted within the periventricular white matter compatible with small vessel ischemic demyelination change. No other abnormal parenchymal densities are seen. No evidence of intracranial hemorrhage. No midline shift or mass-effect is seen. Impression: 1. Mild senescent change. 2. Nothing acute is appreciated on noncontrast head CT study. Diagnostic code #1 This report was dictated in [place] Standard Time I agree with preliminary report from ad, finalized on 06/12/19, 10:39 PM Central Time
--- NOTE | 2019-06-13 08:00 | CR ---
Chest: Frontal view of the chest was obtained. Comparison: Prior chest CT study of 12/11/12. Heart size is normal. Tortuous thoracic aorta is noted. Skin fold is noted over the right chest. Blunting of the left lateral costophrenic angle is seen believed to be chronic. No acute parenchymal change is seen. Scoliosis is noted within the spine. Carotid artery calcification is noted. Degenerative change is noted within the right glenohumeral joint. No acute bony abnormality is appreciated. Impression: 1. Multiple findings. 2. Nothing acute is suspected. Diagnostic code #2 This report was dictated in [place] Standard Time
[2019-06-13] MEDS: Cyclobenzaprine 10 MG Tab PO PRN ×3 (08:03→23:51)
[2019-06-13] MEDS: Polyethylene Glycol 3350 Powder 17 GM Packet PO SCH (08:04)
[2019-06-13] MEDS ORDERED: Docusate Sodium 100 MG Cap PO PRN (08:21)
[2019-06-13] MEDS: FLUTICASONE PROPIONATE INH SCH ×2 (09:28→20:50)
[2019-06-13] MEDS: SALMETEROL XINAFOATE 50 MCG INH SCH ×2 (09:28→20:50)
[2019-06-13] MEDS ORDERED: D5 1/2 NS w/ 20 mEq/L KCl 1,000 ML IV SCH (09:30)
[2019-06-13] MEDS ORDERED: Scopolamine 1.5 MG Transdermal Patch TOP ONE (13:07)
[2019-06-13] MEDS ORDERED: Metoclopramide 10 MG/2 ML SDV IVPUSH ONE (13:08)
--- NOTE | 2019-06-13 14:54 | PCM.PREANE ---
<Darshana Mcdonnell - Last Filed: 06/13/19 15:02> Preanesthetic Assessment - Anesthesia/Transfusion/Family Hx Anesthesia History: Prior Anesthesia Without Reaction Family History of Anesthesia Reaction: No Transfusion History: No Prior Transfusion(s) - Review of Systems General: No Symptoms Pulmonary: Cough (COPD and chronic cough) Cardiovascular: No Symptoms (PVD, Left femoral artery grafting, Hypertension, HLD) Gastrointestinal: Nausea, Vomiting (Very nauseated today. Scopalamine patch on and zofran administered. ) Neurological: Pre-Existing Deficit, Difficulty Walking (Due to fractured femoral neck on the right. ) Other: Reports: Easy Bleeding, Easy Bruising (On Plavix, on hold for surgery tommorrow. ) - Physical Assessment Vital Signs: Last Vital Signs Temp 98.4 F 06/14/19 04:00 Pulse 70 06/14/19 04:00 Resp 18 06/14/19 04:00 BP 131/57 L 06/14/19 04:00 Pulse Ox 95 06/14/19 08:30 Height: 1.52 m Weight: 55.48 kg ASA Class: 3 Mental Status: Alert & Oriented x3 Airway Class: Mallampati = 2 Thyro-Mental Finger Breadths: 2 Mouth Opening Finger Breadths: 3 ROM/Head Extension: Full Lungs: Clear to Auscultation, Normal Respiratory Effort, Decreased Breath Sounds Cardiovascular: Regular Rhythm, Irregular Rhythm - Lab Values: Laboratory Last Values WBC 10.87 K/mm3 (3.98-10.04) H 06/14/19 06:53 RBC 3.97 M/mm3 (3.98-5.22) L 06/14/19 06:53 Hgb 11.5 gm/dl (11.2-15.7) 06/14/19 06:53 Hct 35.5 % (34.1-44.9) 06/14/19 06:53 MCV 89.4 fl (79.4-94.8) 06/14/19 06:53 MCH 29.0 pg (25.6-32.2) 06/14/19 06:53 MCHC 32.4 g/dl (32.2-35.5) 06/14/19 06:53 RDW Std Deviation 40.6 fL (36.4-46.3) 06/14/19 06:53 Plt Count 228 K/mm3 (182-369) D 06/14/19 06:53 MPV 10.6 fl (9.4-12.3) 06/14/19 06:53 Neut % (Auto) 85.5 % (34.0-71.1) H 06/14/19 06:53 Lymph % (Auto) 4.3 % (19.3-51.7) L 06/14/19 06:53 [place] % (Auto) 7.5 % (4.7-12.5) 06/14/19 06:53 Eos % (Auto) 2.5 (0.7-5.8) 06/14/19 06:53 Baso % (Auto) 0.1 % (0.1-1.2) 06/14/19 06:53 Neut # (Auto) 9.29 K/mm3 (1.56-6.13) H 06/14/19 06:53 Lymph # (Auto) 0.47 K/mm3 (1.18-3.74) L 06/14/19 06:53 [place] # (Auto) 0.82 K/mm3 (0.24-0.36) H 06/14/19 06:53 Eos # (Auto) 0.27 K/mm3 (0.04-0.36) 06/14/19 06:53 Baso # (Auto) 0.01 K/mm3 (0.01-0.08) 06/14/19 06:53 Manual Slide Review Abnormal smear 06/14/19 06:53 PT 10.9 SECONDS (9.7-12.0) 06/12/19 20:57 INR 1.00 06/12/19 20:57 APTT 27 SECONDS (22-31) 06/12/19 20:57 Sodium 132 mEq/L (136-145) L 06/14/19 06:53 Potassium 3.0 mEq/L (3.5-5.1) L 06/14/19 06:53 Chloride 96 mEq/L (98-107) L 06/14/19 06:53 Carbon Dioxide 28 mEq/L (21-32) 06/14/19 06:53 Anion Gap 11.0 (5-15) 06/14/19 06:53 BUN 4 mg/dL (7-18) L 06/14/19 06:53 Creatinine 0.6 mg/dL (0.55-1.02) 06/14/19 06:53 Est Cr Clr Drug Dosing 48.34 mL/min 06/14/19 06:53 Estimated GFR (MDRD) > 60 mL/min (>60) 06/14/19 06:53 BUN/Creatinine Ratio 6.7 (14-18) L 06/14/19 06:53 Glucose 154 mg/dL (83-115) H 06/14/19 06:53 Calcium 8.1 mg/dL (8.5-10.1) L 06/14/19 06:53 Magnesium 1.9 mg/dl (1.8-2.4) 06/14/19 06:53 Total Bilirubin 0.7 mg/dL (0.2-1.0) 06/14/19 06:53 AST 22 U/L (15-37) 06/14/19 06:53 ALT 23 U/L (14-59) 06/14/19 06:53 Alkaline Phosphatase 81 U/L (46-116) 06/14/19 06:53 NT-Pro-B Natriuret Pep 297 pg/mL (0-450) 06/12/19 20:57 Total Protein 5.7 g/dl (6.4-8.2) L 06/14/19 06:53 Albumin 2.3 g/dl (3.4-5.0) L 06/14/19 06:53 Globulin 3.4 gm/dL 06/14/19 06:53 Albumin/Globulin Ratio 0.7 (1-2) L 06/14/19 06:53 Urine Color Yellow (Yellow) 06/12/19 21:45 Urine Appearance Clear (Clear) 06/12/19 21:45 Urine pH 7.0 (5.0-8.0) 06/12/19 21:45 Ur Specific [place] 1.020 (1.005-1.030) 06/12/19 21:45 Urine Protein Negative (Negative) 06/12/19 21:45 Urine Glucose (UA) Negative (Negative) 06/12/19 21:45 Urine Ketones Trace (Negative) H 06/12/19 21:45 Urine Occult Blood Negative (Negative) 06/12/19 21:45 Urine Nitrite Negative (Negative) 06/12/19 21:45 Urine Bilirubin Negative (Negative) 02/12/20 21:45 Urine Urobilinogen 0.2 (0.2-1.0) 06/12/19 21:45 Ur Leukocyte Esterase Negative (Negative) 06/12/19 21:45 Urine RBC 0-5 /hpf (0-5) 06/12/19 21:45 Urine WBC Not seen /hpf (0-5) 06/12/19 21:45 Ur Squamous Epith Cells 0-5 /hpf (0-5) 06/12/19 21:45 Urine Bacteria Rare /hpf (FEW) 06/12/19 21:45 Urine Mucus Few /hpf (FEW) 06/12/19 21:45 Blood Type O POSITIVE 06/13/19 05:20 Gel Antibody Screen Negative 06/13/19 05:20 - Allergies Allergies/Adverse Reactions: Allergies Allergy/AdvReac Type Severity Reaction Status Date / Time No Known Allergies Allergy Verified 06/13/19 12:27 - Acknowledgements Anesthesia Type Planned: General Anesthesia Pt an Appropriate Candidate for the Planned Anesthesia: Yes Alternatives and Risks of Anesthesia Discussed w Pt/Guardian: Yes Pt/Guardian Understands and Agrees with Anesthesia Plan: Yes PreAnesthesia Questionnaire HEENT History: Reports: Glaucoma, Impaired Vision Cardiovascular History: Reports: High Cholesterol, Hypertension, PVD (She has had severe peripheral vascular disease involving her left lower extremity and has had a graft placed in the left femoral artery.) Other Cardiovascular History: reports having clots removed from left leg Respiratory History: Reports: COPD (Not on oxygen.) Other OB/BYN History: hysterectomy Endocrine/Metabolic History: Reports: Osteopenia, Osteoporosis Oncologic (Cancer) History: Reports: Lung - Infectious Disease History Infectious Disease History: Reports: Influenza, Measles, Mumps, Pertussis ( Whooping Cough), Rubella - Past Surgical History Female Surgical History: Reports: Hysterectomy, Salpingo-Oophorectomy ( Bilateral) Musculoskeletal Surgical History: Reports: Other (See Below) (Recent extensor tendon repair dorsal aspect of right hand. She states she was putting her hand into a glove and felt sudden onset of pain in her right fifth dorsal finger. Apparently she was identified to have ruptured the extensor tendon and she's had some form of tendon repair by Dr. Strauss in concert with the right fourth extensor tendon. The surgery was performed about 3 weeks ago and she remains in a splint on the right upper extremity) - SUBSTANCE USE Smoking Status *Q: Former Smoker Second Hand Smoke Exposure: No Recreational Drug Use History: No - HOME MEDS Home Medications: Home Meds Aspirin [Halfprin] 81 mg PO DAILY 06/13/19 [History] Calcium Carbonate/Vitamin D3 [Calcium 600 + Vit D 200] 2 tab PO BID 06/13/19 [ History] Clopidogrel [Plavix] 75 mg PO DAILY 06/13/19 [History] Famotidine 20 mg PO BEDTIME 06/13/19 [History] Fluticasone Propionate [Flovent HFA 110 MCG] 1 puff INH BID 06/13/19 [History] Latanoprost [Xalatan] 1 drop EYEBOTH BEDTIME 06/13/19 [History] Magnesium Oxide 400 mg PO DAILY 06/13/19 [History] Potassium Chloride 30 meq PO DAILY 06/13/19 [History] Rosuvastatin [Crestor] 10 mg PO BEDTIME 06/13/19 [History] Salmeterol Xinafoate [Serevent Diskus] 1 blister INH BID 06/13/19 [History] Triamcinolone Acetonide [Triamcinolone Acetonide 0.1% Crm] 1 dose TOP BID PRN [History] amLODIPine [Norvasc] 7.5 mg PO DAILY 06/13/19 [History] guaiFENesin [Mucinex] 1,200 mg PO BID PRN 06/13/19 [History] hydroCHLOROthiazide [Hydrochlorothiazide] 25 mg PO DAILY 06/13/19 [History] - CURRENT (IN HOUSE) MEDS Current Meds: Current Medications Acetaminophen (Tylenol) 650 mg PO Q4H PRN PRN Reason: Pain (Mild 1-3)/fever Last Admin: 06/14/19 06:04 Dose: 650 mg Amlodipine Besylate (Norvasc) 7.5 mg PO DAILY [facility] Last Admin: 06/14/19 09:52 Dose: Not Given Cyclobenzaprine HCl (Flexeril) 5 mg PO TID PRN PRN Reason: muscle spasms Last Admin: 06/14/19 06:05 Dose: 5 mg Docusate Sodium (Colace) 100 mg PO BID PRN PRN Reason: Constipation Famotidine (Pepcid) 20 mg PO BEDTIME [facility] Last Admin: 06/13/19 20:13 Dose: 20 mg Hydromorphone HCl (Dilaudid) 0.25 mg IVPUSH Q2H PRN PRN Reason: Pain Last Admin: 06/13/19 04:08 Dose: 0.25 mg Potassium Chloride 10 meq/ (Premix) 100 mls @ 100 mls/hr IV Q1H [facility] Stop: 06/14/19 12:14 Last Admin: 06/14/19 09:19 Dose: 100 mls/hr Dextrose/Sodium Chloride (Dextrose 5%-Normal Saline) 1,000 mls @ 50 mls/hr IV ASDIRECTED [facility] Latanoprost (Xalatan 0.005% Ophth Soln) 0 ml EYEBOTH BEDTIME [facility] Last Admin: 06/13/19 20:16 Dose: 1 drop Miscellaneous Information (Remove Patch) 0 ea TRDERM ONETIME ONE Stop: 06/16/19 13:16 Fluticasone Propionate [Flovent] Ptom 1 puff INH BID [facility] Last Admin: 06/14/19 08:29 Dose: 1 puff Salmeterol Xinafoate (50 Mcg Ptom) 1 puff INH BID [facility] Last Admin: 06/14/19 08:29 Dose: 1 puff Ondansetron HCl (Zofran) 4 mg IVPUSH Q6H PRN PRN Reason: Nausea/Vomiting Last Admin: 06/13/19 12:34 Dose: 4 mg Oxycodone/Acetaminophen (Percocet 325-5 Mg) 1 tab PO Q4H PRN PRN Reason: Pain (moderate 4-6) Last Admin: 06/13/19 11:33 Dose: 1 tab Polyethylene Glycol (Miralax) 17 gm PO DAILY [facility] Last Admin: 06/14/19 09:52 Dose: Not Given Rosuvastatin Calcium (Crestor) 10 mg PO BEDTIME [facility] Last Admin: 06/13/19 20:13 Dose: 10 mg Discontinued Medications Albuterol (Proventil Neb Soln) 2.5 mg NEB ONETIME ONE Stop: 06/14/19 10:31 Hydromorphone HCl (Dilaudid) 0.25 mg IVPUSH ONETIME ONE Stop: 06/12/19 20:57 Last Admin: 06/12/19 21:06 Dose: 0.25 mg Hydromorphone HCl (Dilaudid) 0.25 mg IVPUSH ONETIME ONE Stop: 06/12/19 21:48 Last Admin: 06/12/19 21:48 Dose: 0.25 mg Dextrose/Sodium Chloride (Dextrose 5%-Normal Saline) 1,000 mls @ 150 mls/hr IV ASDIRECTED [facility] Last Admin: 06/12/19 21:38 Dose: 150 mls/hr Potassium Chloride/Dextrose/Sod Cl (D5 1/2 Ns W/ 20 Meq/L Kcl) 1,000 mls @ 100 mls/hr IV ASDIRECTED [facility] Dextrose/Sodium Chloride (Dextrose 5%-Normal Saline) 1,000 mls @ 120 mls/hr IV ASDIRECTED [facility] Last Admin: 06/13/19 00:05 Dose: 120 mls/hr Dextrose/Sodium Chloride (Dextrose 5%-Normal Saline) 1,000 mls @ 100 mls/hr IV ASDIRECTED [facility] Last Admin: 06/14/19 05:59 Dose: 100 mls/hr Magnesium Sulfate 2 gm/ Premix 50 mls @ 25 mls/hr IV ONETIME ONE Stop: 06/13/19 08:52 Last Admin: 06/13/19 07:08 Dose: 25 mls/hr Metoclopramide HCl (Reglan) 10 mg IVPUSH ONETIME ONE Stop: 06/13/19 13:09 Last Admin: 06/13/19 13:14 Dose: 10 mg Non-Formulary Medication (Fluticasone Propionate) 1 puff INH BID [facility] Non-Formulary Medication (Salmeterol Xinafoate) 1 blister INH BID [facility] Scopolamine (Transderm-Scop) 1.5 mg TOP ONETIME ONE Stop: 06/13/19 13:08 Last Admin: 06/13/19 13:18 Dose: 1.5 mg <Earle Dave - Last Filed: 06/14/19 11:30> Preanesthetic Assessment - Anesthesia/Transfusion/Family Hx Anesthesia History: Prior Anesthesia Without Reaction Family History of Anesthesia Reaction: No Transfusion History: No Prior Transfusion(s) - Review of Systems General: No Symptoms Pulmonary: No Symptoms Cardiovascular: No Symptoms Gastrointestinal: No Symptoms Neurological: Pre-Existing Deficit, Difficulty Walking Other: Reports: Easy Bleeding, Easy Bruising - Physical Assessment NPO Status Date: 06/13/19 NPO Status Time: 23:00 ASA Class: 3 Mental Status: Alert & Oriented x3 Airway Class: Mallampati = 2 ROM/Head Extension: Full Lungs: Clear to Auscultation, Normal Respiratory Effort, Decreased Breath Sounds Cardiovascular: Regular Rate, Regular Rhythm, Irregular Rhythm - Acknowledgements Anesthesia Type Planned: General Anesthesia Pt an Appropriate Candidate for the Planned Anesthesia: Yes Alternatives and Risks of Anesthesia Discussed w Pt/Guardian: Yes Pt/Guardian Understands and Agrees with Anesthesia Plan: Yes PreAnesthesia Questionnaire HEENT History: Reports: Impaired Vision Cardiovascular History: Reports: High Cholesterol, Hypertension Respiratory History: Reports: COPD Endocrine/Metabolic History: Reports: Osteopenia, Osteoporosis
[2019-06-13] MEDS: Acetaminophen 325 MG Tab PO PRN ×2 (16:13→23:50)
[2019-06-13] MEDS: Rosuvastatin 10 MG Tab PO SCH (20:13)
[2019-06-13] MEDS: Famotidine 20 MG Tab PO SCH (20:13)
[2019-06-13] MEDS: Latanoprost 0.005% Ophth Soln 2.5 ML Bottle EYEBOTH SCH (20:16)
[2019-06-13] MEDS ORDERED: SALMETEROL XINAFOATE INH SCH (21:00)
[2019-06-13] MEDS ORDERED: FLUTICASONE PROPIONATE INH SCH (21:00)
[2019-06-14] MEDS: Dextrose 5%-0.9% NaCl 1,000 ML IV SCH (05:59)
[2019-06-14] MEDS: Acetaminophen 325 MG Tab PO PRN (06:04)
[2019-06-14] MEDS: Cyclobenzaprine 10 MG Tab PO PRN (06:05)
--- NOTE | 2019-06-14 06:51 | PCM.PN ---
- General Info Date of Service: 06/14/19 Admission Dx/Problem (Free Text): Admission Diagnosis/Problem Admission Diagnosis/Problem Hip fracture requiring operative repair Functional Status: Reports: Pain Controlled (at times - worse with movement ), Urinating (monson in place ), Incentive Spirometry. Denies: Tolerating Diet ( NPO ), Ambulating, New Symptoms - Review of Systems General: Reports: No Symptoms, Weakness, Fatigue. Denies: Fever, Malaise, Chills HEENT: Reports: No Symptoms. Denies: Headaches, Sore Throat Pulmonary: Reports: No Symptoms, Cough (Chronic ). Denies: Shortness of Breath , Sputum, Wheezing Cardiovascular: Reports: No Symptoms. Denies: Chest Pain, Palpitations, Dyspnea on Exertion, Edema Gastrointestinal: Reports: No Symptoms. Denies: Abdominal Pain, Constipation, Diarrhea, Nausea, Vomiting Genitourinary: Reports: No Symptoms. Denies: Pain Musculoskeletal: Reports: Leg Pain (right - stable), Other Skin: Reports: No Symptoms. Denies: Cyanosis Neurological: Reports: Difficulty Walking, Weakness, Gait Disturbance. Denies: Confusion Psychiatric: Reports: No Symptoms - Patient Data Vitals - Most Recent: Last Vital Signs Temp 98.4 F 06/14/19 04:00 Pulse 70 06/14/19 04:00 Resp 18 06/14/19 04:00 BP 131/57 L 06/14/19 04:00 Pulse Ox 92 L 06/14/19 04:00 Weight - Most Recent: 122 lb 5 oz I&O - Last 24 Hours: Intake & Output 06/13/19 06/13/19 06/14/19 14:59 22:59 06:59 Intake Total 0 1163 Output Total 1975 Balance 0 -812 Lab Results Last 24 Hours: Laboratory Results - last 24 hr 06/13/19 Range/Units 05:20 Blood Type O POSITIVE Gel Antibody Screen Negative Med Orders - Current: Current Medications Acetaminophen (Tylenol) 650 mg PO Q4H PRN PRN Reason: Pain (Mild 1-3)/fever Last Admin: 06/14/19 06:04 Dose: 650 mg Albuterol (Proventil Neb Soln) 2.5 mg NEB ONETIME ONE Stop: 06/14/19 10:31 Amlodipine Besylate (Norvasc) 7.5 mg PO DAILY [facility] Cyclobenzaprine HCl (Flexeril) 5 mg PO TID PRN PRN Reason: muscle spasms Last Admin: 06/14/19 06:05 Dose: 5 mg Docusate Sodium (Colace) 100 mg PO BID PRN PRN Reason: Constipation Famotidine (Pepcid) 20 mg PO BEDTIME [facility] Last Admin: 06/13/19 20:13 Dose: 20 mg Hydromorphone HCl (Dilaudid) 0.25 mg IVPUSH Q2H PRN PRN Reason: Pain Last Admin: 06/13/19 04:08 Dose: 0.25 mg Dextrose/Sodium Chloride (Dextrose 5%-Normal Saline) 1,000 mls @ 100 mls/hr IV ASDIRECTED [facility] Last Admin: 06/14/19 05:59 Dose: 100 mls/hr Latanoprost (Xalatan 0.005% Ophth Soln) 0 ml EYEBOTH BEDTIME [facility] Last Admin: 06/13/19 20:16 Dose: 1 drop Miscellaneous Information (Remove Patch) 0 ea TRDERM ONETIME ONE Stop: 06/16/19 13:16 Fluticasone Propionate [Flovent] Ptom 1 puff INH BID [facility] Last Admin: 06/13/19 20:50 Dose: 1 puff Salmeterol Xinafoate (50 Mcg Ptom) 1 puff INH BID [facility] Last Admin: 06/13/19 20:50 Dose: 1 puff Ondansetron HCl (Zofran) 4 mg IVPUSH Q6H PRN PRN Reason: Nausea/Vomiting Last Admin: 06/13/19 12:34 Dose: 4 mg Oxycodone/Acetaminophen (Percocet 325-5 Mg) 1 tab PO Q4H PRN PRN Reason: Pain (moderate 4-6) Last Admin: 06/13/19 11:33 Dose: 1 tab Polyethylene Glycol (Miralax) 17 gm PO DAILY [facility] Last Admin: 06/13/19 08:04 Dose: 17 gm Rosuvastatin Calcium (Crestor) 10 mg PO BEDTIME [facility] Last Admin: 06/13/19 20:13 Dose: 10 mg Discontinued Medications Hydromorphone HCl (Dilaudid) 0.25 mg IVPUSH ONETIME ONE Stop: 06/12/19 20:57 Last Admin: 06/12/19 21:06 Dose: 0.25 mg Hydromorphone HCl (Dilaudid) 0.25 mg IVPUSH ONETIME ONE Stop: 06/12/19 21:48 Last Admin: 06/12/19 21:48 Dose: 0.25 mg Dextrose/Sodium Chloride (Dextrose 5%-Normal Saline) 1,000 mls @ 150 mls/hr IV ASDIRECTED [facility] Last Admin: 06/12/19 21:38 Dose: 150 mls/hr Potassium Chloride/Dextrose/Sod Cl (D5 1/2 Ns W/ 20 Meq/L Kcl) 1,000 mls @ 100 mls/hr IV ASDIRECTED [facility] Dextrose/Sodium Chloride (Dextrose 5%-Normal Saline) 1,000 mls @ 120 mls/hr IV ASDIRECTED [facility] Last Admin: 06/13/19 00:05 Dose: 120 mls/hr Magnesium Sulfate 2 gm/ Premix 50 mls @ 25 mls/hr IV ONETIME ONE Stop: 06/13/19 08:52 Last Admin: 06/13/19 07:08 Dose: 25 mls/hr Metoclopramide HCl (Reglan) 10 mg IVPUSH ONETIME ONE Stop: 06/13/19 13:09 Last Admin: 06/13/19 13:14 Dose: 10 mg Non-Formulary Medication (Fluticasone Propionate) 1 puff INH BID [facility] Non-Formulary Medication (Salmeterol Xinafoate) 1 blister INH BID [facility] Scopolamine (Transderm-Scop) 1.5 mg TOP ONETIME ONE Stop: 06/13/19 13:08 Last Admin: 06/13/19 13:18 Dose: 1.5 mg - Exam Quality Assessment: Supplemental Oxygen, Urine Catheter, DVT Prophylaxis General: Alert, Oriented, Cooperative, No Acute Distress (No distress when lying on bed still ). No: Moderate Distress (Moderate distress with movement ) HEENT: Pupils Equal, Pupils Reactive, Mucous Membr. Moist/[place] Neck: Supple, Trachea Midline Lungs: Clear to Auscultation, Normal Respiratory Effort, Decreased Breath Sounds Cardiovascular: Regular Rate, Irregular Rhythm GI/Abdominal Exam: Normal Bowel Sounds, Soft, Non-Tender, No Distention (Female) Exam: Deferred, Other (Monson in place ) Extremities: Leg Pain (right leg ), Limited Range of Motion, Other (Right leg externally rotated and shortened ) Peripheral Pulses: 3+: Radial (L), Radial (R), Dorsalis Pedis (L), Dorsalis Pedis (R) Skin: Warm, Dry, Intact Neurological: No New Focal Deficit Psy/Mental Status: Alert Sepsis Event Note - Evaluation Sepsis Screening Result: No Definite Risk - Focused Exam Vital Signs: Vital Signs Temp Temp Pulse Pulse Resp BP BP 06/14/19 04:00 98.4 F 70 18 131/57 L 06/14/19 00:00 98.9 F 81 18 146/69 H 06/13/19 20:50 06/13/19 19:47 98.8 F 78 18 117/79 Pulse Ox Pulse Ox 06/14/19 04:00 92 L 06/14/19 00:00 90 L 06/13/19 20:50 98 06/13/19 19:47 97 Date Exam was Performed: 06/14/19 Time Exam was Performed: 11:50 - Problem List & Annotations (1) Osteopenia SNOMED Code(s): 006940972 Code(s): M85.80 - OTH DISRD OF BONE DENSITY AND STRUCTURE, UNSPECIFIED SITE Status: Chronic Priority: Medium Current Visit: Yes Qualifiers: Osteopenia location: unspecified Qualified Code(s): M85.80 - Other specified disorders of bone density and structure, unspecified site (2) HLD (hyperlipidemia) SNOMED Code(s): 09965756 Code(s): E78.5 - HYPERLIPIDEMIA, UNSPECIFIED Status: Chronic Priority: Low Current Visit: No Qualifiers: Hyperlipidemia type: unspecified Qualified Code(s): E78.5 - Hyperlipidemia , unspecified (3) HTN (hypertension) SNOMED Code(s): 13136592 Code(s): I10 - ESSENTIAL (PRIMARY) HYPERTENSION Status: Chronic Priority : Medium Current Visit: No Qualifiers: Hypertension type: unspecified Qualified Code(s): I10 - Essential (primary ) hypertension (4) Osteoporosis SNOMED Code(s): 51470728 Code(s): M81.0 - AGE-RELATED OSTEOPOROSIS W/O CURRENT PATHOLOGICAL FRACTURE Status: Chronic Priority: Medium Current Visit: No (5) History of lung cancer SNOMED Code(s): 169750678, 823108388 Code(s): Z85.118 - PERSONAL HISTORY OF MALIGNANT NEOPLASM OF BRONCHUS AND LUNG Status: Chronic Priority: Medium Current Visit: No (6) History of hand surgery SNOMED Code(s): 991290910, 476482872 Code(s): Z98.890 - OTHER SPECIFIED POSTPROCEDURAL STATES Status: Chronic Priority: Medium Current Visit: Yes (7) Immobilizing cast in place SNOMED Code(s): 542911448 Code(s): Z97.8 - PRESENCE OF OTHER SPECIFIED DEVICES Status: Chronic Priority: Medium Current Visit: Yes (8) COPD not affecting current episode of care SNOMED Code(s): 82794449 Code(s): J44.9 - CHRONIC OBSTRUCTIVE PULMONARY DISEASE, UNSPECIFIED Status : Chronic Priority: Medium Current Visit: No (9) Fracture of hip, right, closed SNOMED Code(s): 928443870 Code(s): S72.001A - FRACTURE OF UNSP PART OF NECK OF RIGHT FEMUR, INIT Status: Acute Priority: High Current Visit: Yes Qualifiers: Encounter type: initial encounter Qualified Code(s): S72.001A - Fracture of unspecified part of neck of right femur, initial encounter for closed fracture (10) Minor closed head injury SNOMED Code(s): 173310104, 583748269138 Code(s): S00.90XA - UNSP SUPERFICIAL INJURY OF UNSP PART OF HEAD, INIT ENCNTR Status: Acute Priority: High Current Visit: Yes (11) Peripheral vascular disease SNOMED Code(s): 439660898 Code(s): I73.9 - PERIPHERAL VASCULAR DISEASE, UNSPECIFIED Status: Chronic Priority: Medium Current Visit: No (12) Hypomagnesemia SNOMED Code(s): 297267099 Code(s): E83.42 - HYPOMAGNESEMIA Status: Acute Priority: High Current Visit: Yes (13) Fall SNOMED Code(s): 9682963, 644329706 Code(s): W19.XXXA - UNSPECIFIED FALL, INITIAL ENCOUNTER Status: Acute Priority: High Current Visit: Yes Qualifiers: Encounter type: initial encounter Qualified Code(s): W19.XXXA - Unspecified fall, initial encounter (14) Hypokalemia SNOMED Code(s): 89234554 Code(s): E87.6 - HYPOKALEMIA Status: Acute Priority: High Current Visit : Yes - Problem List Review Problem List Initiated/Reviewed/Updated: Yes - My Orders Last 24 Hours: My Active Orders 06/13/19 06:47 Intake and Output [RC] 04,16 VTE/DVT Education [RC] BID Vital Signs [RC] Q4HR Consult to Case Management/[employer]ime [employer] Operator [CONS] Routine Consult to Spiritual Care [CONS] Routine OT Evaluation and Treatment [CONS] Routine PT Evaluation and Treatment [CONS] Routine Acetaminophen [Tylenol] 650 mg PO Q4H PRN Acetaminophen/oxyCODONE [Percocet 325-5 MG] 1 tab PO Q4H PRN 06/13/19 06:51 Consult to Physician [CONS] Routine 06/13/19 08:21 RT Incentive Spirometry [RC] ASDIRECTED Docusate Sodium [Colace] 100 mg PO BID PRN 06/13/19 09:00 Fluticasone Propionate [Flovent] 1 puff INH BID Salmeterol Xinafoate 1 puff INH BID 06/13/19 21:00 Famotidine [Pepcid] 20 mg PO BEDTIME Latanoprost [Xalatan 0.005% Ophth Soln] 0 ml EYEBOTH BEDTIME Rosuvastatin [Crestor] 10 mg PO BEDTIME 06/14/19 05:11 CBC WITH AUTO DIFF [HEME] AM CMP [COMPREHENSIVE METABOLIC PN,CMP] [CHEM] AM MAGNESIUM [CHEM] AM 06/14/19 09:00 amLODIPine [Norvasc] 7.5 mg PO DAILY 06/15/19 05:11 CBC WITH AUTO DIFF [HEME] AM CMP [COMPREHENSIVE METABOLIC PN,CMP] [CHEM] AM MAGNESIUM [CHEM] AM 06/16/19 05:11 CBC WITH AUTO DIFF [HEME] AM CMP [COMPREHENSIVE METABOLIC PN,CMP] [CHEM] AM MAGNESIUM [CHEM] AM 06/16/19 13:15 Remove Patch 0 ea TRDERM ONETIME ONE 06/17/19 05:11 CBC WITH AUTO DIFF [HEME] AM CMP [COMPREHENSIVE METABOLIC PN,CMP] [CHEM] AM MAGNESIUM [CHEM] AM - Plan Plan:: I/P: Acute: Right hip fracture -Patient reports lost balance and fell -Baseline ambulatory, still works 40 hrs a week -Already has right hand immobilized 2/2 5th digit extensor tendon surgery as below -Unable to bear weight on right side. Right extremity shortened and externally rotated -Confirmed with hip and femur x-ray -CXR shows nothing acute -12-Lead EKG shows NSR with frequent PACs, Enlarged P-waves, Early R-wave transition, Diffuse early repolarization pattern -Hgb 12.7-->11.5; Platelet 324-->228, INR 1.00 -Dr. Grace, orthopedic surgeon contacted by ED - Plans surgical fixation today around noon -On home plavix and ASA- hold -Type and screen -NPO until after surgery -IS -PT/OT -CM/SW - will likely require rehab SNF stay -Bedrest for now -Pain medications, muscle relaxants as ordered -Hx/o constipation - laxatives/stool softeners as ordered -2.4% risk of perioperative mortality -Monson in place - remove post-surgically when stable S/P fall -Lost balance while folding clothes -Resulting in hip fx as above -Reports hit head on dresser -ED CT scan negative for acute change -CXR negative for acute change -Stable S/P Right 5th digit extensor tendon fixation -Reports took part of 4th digit tendon to repair 5th digit -Immobilizer in place -Stable S/P Hypomagnesemia -Magnesium 1.7-->1.9 -Supplement Hypokalemia -Potassium 3.0 -Supplement Chronic: HLD HTN PVD s/p left lower extremity femoral artery grafting COPD osteopenia osteoporosis s/p right fifth digit extensor tendon repair with remaining right upper extremity splinting glaucoma hx/o lung cancer Plan: Admit to M/S/P on telemetry Other orders as indicated above Home medications as directed Will likely need SNF rehab stay Spiritual care consult AM labs as ordered DVT prophylaxis: SCDs for now; GI prophylaxis: Home Pepcid Code status: Full code; PCP: Dr. Orta LOS: Likely will need to stay through weekend pending placement
[2019-06-14] MEDS: FLUTICASONE PROPIONATE INH SCH ×2 (08:29→21:00)
[2019-06-14] MEDS: SALMETEROL XINAFOATE 50 MCG INH SCH ×2 (08:29→21:00)
[2019-06-14] MEDS: Potassium Chloride 10 MEQ in Premix Bag 1 BAG IV SCH ×4 (09:19→18:13)
[2019-06-14] MEDS: amLODIPine 5 MG Tab PO SCH (09:52)
[2019-06-14] MEDS: Polyethylene Glycol 3350 Powder 17 GM Packet PO SCH (09:52)
[2019-06-14] MEDS ORDERED: Dextrose 5%-0.9% NaCl 1,000 ML IV SCH (10:00)
[2019-06-14] MEDS ORDERED: Albuterol 0.083% 2.5 MG/3 ML Neb Soln NEB ONE (10:30)
[2019-06-14] MEDS ORDERED: Midazolam 1 MG/ML 2 ML SDV ONE (11:51)
[2019-06-14] MEDS ORDERED: Ketamine 500 mg/10 ML MDV ONE (11:52)
[2019-06-14] MEDS ORDERED: fentaNYL 100 MCG/2 ML SDV ONE (11:53)
[2019-06-14] MEDS ORDERED: Etomidate 2 MG/ML 20 ML SDV IVPUSH ONE (11:54)
[2019-06-14] MEDS ORDERED: fentaNYL 250 MCG/5 ML SDV ONE (11:55)
[2019-06-14] MEDS ORDERED: ceFAZolin 1 GM Vial ONE (12:53)
[2019-06-14] MEDS ORDERED: Phenylephrine/Normal Saline 100 MCG/ML 10 ML Syringe ONE ×2 (13:09→13:52)
[2019-06-14] MEDS ORDERED: Esmolol 100 MG/10 ML SDV ONE (13:10)
[2019-06-14] MEDS: Iodine/Sodium Iodide 2% Tincture 30 ML Bottle ONE ×2 (13:23→13:51)
[2019-06-14] MEDS: Bupivacaine 0.25% 10 ML SDV ONE ×2 (13:25→14:03)
[2019-06-14] MEDS: Vancomycin 1 GM SDV ONE ×2 (13:25→13:58)
[2019-06-14] MEDS ORDERED: Succinylcholine/Normal Saline 100 MG/5 ML Syringe ONE (13:27)
[2019-06-14] MEDS ORDERED: Lidocaine 1% 4 ML ONE (13:27)
[2019-06-14] MEDS: Morphine 8 MG, EPINEPHrine 0.3 MG, Cefuroxime 750 MG, Ketorolac 30 MG, Sodium Chloride ... SCH ×10 (13:27→13:58)
[2019-06-14] MEDS: ceFAZolin 1 GM Vial ONE ×2 (13:28→13:55)
[2019-06-14] MEDS ORDERED: Ondansetron 4 MG/2 ML SDV ONE (13:35)
[2019-06-14] MEDS ORDERED: HYDROmorphone 0.5 MG/0.5 ML Syringe IVPUSH PRN (14:03)
[2019-06-14] MEDS ORDERED: Ondansetron 4 MG/2 ML SDV IVPUSH PRN (14:03)
[2019-06-14] MEDS ORDERED: fentaNYL 100 MCG/2 ML SDV IVPUSH PRN (14:03)
[2019-06-14] MEDS: Albuterol 0.083% 2.5 MG/3 ML Neb Soln NEB PRN ×2 (14:36→15:25)
--- NOTE | 2019-06-14 14:50 | PCM.POSTAN ---
POST ANESTHESIA ASSESSMENT - MENTAL STATUS Mental Status: Somnolent - VITAL SIGNS Vital Signs: Last Vital Signs Temp 98.6 F 06/14/19 14:28 Pulse 79 06/14/19 11:27 Resp 17 06/14/19 14:28 BP 137/52 L 06/14/19 14:28 Pulse Ox 97 06/14/19 14:28 - RESPIRATORY Respiratory Status: Respiratory Rate WNL, Airway Patent, O2 Saturation Stable, Supplemental Oxygen, Wheezing (Respiratory tx ordered) - CARDIOVASCULAR CV Status: Pulse Rate WNL, Blood Pressure Stable - GASTROINTESTINAL GI Status: No Symptoms - PAIN Pain Score: 0 - POST OP HYDRATION Hydration Status: Adequate & Stable
[2019-06-14] MEDS: Calcium Carbonate/Vitamin D3 600 MG-200 Units Tab PO SCH (18:13)
[2019-06-14] MEDS: Famotidine 20 MG Tab PO SCH (21:13)
[2019-06-14] MEDS: Rosuvastatin 10 MG Tab PO SCH (21:13)
[2019-06-14] MEDS: Latanoprost 0.005% Ophth Soln 2.5 ML Bottle EYEBOTH SCH (21:13)
[2019-06-15] MEDS ORDERED: Dextrose 5%-0.9% NaCl 1,000 ML IV SCH (05:00)
[2019-06-15] MEDS: Calcium Carbonate/Vitamin D3 600 MG-200 Units Tab PO SCH ×2 (06:39→16:49)
--- NOTE | 2019-06-15 08:07 | CR ---
Pelvis and right hip: AP view of the pelvis was obtained as well as crosstable lateral views of the right hip. Comparison: Previous pelvis study of 06/12/19. Right hip prosthesis is seen. Components are aligned. Soft tissue air is noted. Surgical clips are seen within the left lower extremity. Bony structures are osteopenic. No acute osseous finding is seen. Impression: 1. Recently placed right hip prosthesis. 2. Other findings believed to be incidental. Diagnostic code #2 This report was dictated in [place] Standard Time
[2019-06-15] MEDS: amLODIPine 5 MG Tab PO SCH (08:48)
[2019-06-15] MEDS: Aspirin 325 MG Tab.EC PO SCH ×2 (08:49→20:37)
[2019-06-15] MEDS: Polyethylene Glycol 3350 Powder 17 GM Packet PO SCH (08:50)
[2019-06-15] MEDS: Hydrochlorothiazide 25 MG Tab PO SCH (08:50)
[2019-06-15] MEDS: Magnesium Oxide 400 MG Tab PO SCH (08:50)
[2019-06-15] MEDS: Potassium Chloride 10 MEQ Tab.ER PO SCH (08:50)
[2019-06-15] MEDS: Acetaminophen 325 MG Tab PO PRN ×3 (08:50→20:39)
[2019-06-15] MEDS: Clopidogrel 75 MG Tab PO SCH (08:56)
--- NOTE | 2019-06-15 10:07 | PCM48HPAN ---
Post Anesthesia Note - EVALUATION WITHIN 48HRS OF ANESTHETIC Vital Signs in Normal Range: Yes Patient Participated in Evaluation: Yes Respiratory Function Stable: Yes Airway Patent: Yes Cardiovascular Function Stable: Yes Hydration Status Stable: Yes Pain Control Satisfactory: Yes Nausea and Vomiting Control Satisfactory: Yes Mental Status Recovered: Yes Vital Signs: Last Vital Signs Temp 97.5 F 06/15/19 08:44 Pulse 65 06/15/19 08:44 Resp 22 H 06/15/19 08:44 BP 126/61 06/15/19 08:48 Pulse Ox 90 L 06/15/19 08:44 - COMMENTS/OBSERVATIONS Free Text/Narrative:: Patient is completely alert and back to the preoperative baseline, ambulates with PT and has no recollection of the surgery
--- NOTE | 2019-06-15 11:03 | PCM.PN ---
- General Info Date of Service: 06/15/19 Admission Dx/Problem (Free Text): Admission Diagnosis/Problem Admission Diagnosis/Problem Hip fracture requiring operative repair Subjective Update: Sherri is awake and alert. She is without pain sitting at rest. She states that she has had a wet cough since late summer, early fall of last year. She has had no change in cough after surgery. Functional Status: Reports: Pain Controlled - Review of Systems General: Reports: No Symptoms HEENT: Reports: No Symptoms Pulmonary: Reports: No Symptoms Cardiovascular: Reports: No Symptoms Gastrointestinal: Reports: No Symptoms Musculoskeletal: Reports: No Symptoms - Patient Data Vitals - Most Recent: Last Vital Signs Temp 97.5 F 06/15/19 08:44 Pulse 65 06/15/19 08:44 Resp 22 H 06/15/19 08:44 BP 126/61 06/15/19 08:48 Pulse Ox 90 L 06/15/19 08:44 Weight - Most Recent: 118 lb 8 oz I&O - Last 24 Hours: Intake & Output 06/14/19 06/15/19 06/15/19 22:59 06:59 14:59 Intake Total 1100 850 120 Output Total 300 Balance 1100 550 120 Lab Results Last 24 Hours: Laboratory Results - last 24 hr 06/15/19 06/15/19 Range/Units 07:00 07:00 WBC 17.40 H (3.98-10.04) K/mm3 RBC 4.04 (3.98-5.22) M/mm3 Hgb 11.8 (11.2-15.7) gm/dl Hct 37.0 (34.1-44.9) % MCV 91.6 (79.4-94.8) fl MCH 29.2 (25.6-32.2) pg MCHC 31.9 L (32.2-35.5) g/dl RDW Std Deviation 42.1 (36.4-46.3) fL Plt Count 257 (182-369) K/mm3 MPV 11.3 (9.4-12.3) fl Neut % (Auto) 91.4 H (34.0-71.1) % Lymph % (Auto) 2.8 L (19.3-51.7) % [place] % (Auto) 5.2 (4.7-12.5) % Eos % (Auto) 0.2 L (0.7-5.8) Baso % (Auto) 0.1 (0.1-1.2) % Neut # (Auto) 15.92 H (1.56-6.13) K/mm3 Lymph # (Auto) 0.48 L (1.18-3.74) K/mm3 [place] # (Auto) 0.91 H (0.24-0.36) K/mm3 Eos # (Auto) 0.03 L (0.04-0.36) K/mm3 Baso # (Auto) 0.01 (0.01-0.08) K/mm3 Manual Slide Review Abnormal smear Sodium 132 L (136-145) mEq/L Potassium 4.6 D (3.5-5.1) mEq/L Chloride 96 L (98-107) mEq/L Carbon Dioxide 25 (21-32) mEq/L Anion Gap 15.6 H (5-15) BUN 13 (7-18) mg/dL Creatinine 0.8 (0.55-1.02) mg/dL Est Cr Clr Drug Dosing 36.26 mL/min Estimated GFR (MDRD) > 60 (>60) mL/min BUN/Creatinine Ratio 16.3 (14-18) Glucose 144 H (83-115) mg/dL Calcium 8.9 (8.5-10.1) mg/dL Magnesium 2.0 (1.8-2.4) mg/dl Total Bilirubin 0.7 (0.2-1.0) mg/dL AST 41 H (15-37) U/L ALT 35 (14-59) U/L Alkaline Phosphatase 93 (46-116) U/L Total Protein 6.5 (6.4-8.2) g/dl Albumin 2.6 L (3.4-5.0) g/dl Globulin 3.9 gm/dL Albumin/Globulin Ratio 0.7 L (1-2) Med Orders - Current: Current Medications Acetaminophen (Tylenol) 650 mg PO Q4H PRN PRN Reason: Pain (Mild 1-3)/fever Last Admin: 06/15/19 08:50 Dose: 650 mg Amlodipine Besylate (Norvasc) 7.5 mg PO DAILY [facility] Last Admin: 06/15/19 08:48 Dose: 7.5 mg Aspirin (Ecotrin) 325 mg PO BID [facility] Last Admin: 06/15/19 08:49 Dose: 325 mg Calcium Carbonate (Calcium Carbonate/Vitamin D 600 Mg-200 Unit) 2 tab PO BIDMEALS [facility] Last Admin: 06/15/19 06:39 Dose: 2 tab Clopidogrel Bisulfate (Plavix) 75 mg PO DAILY [facility] Last Admin: 06/15/19 08:56 Dose: 75 mg Cyclobenzaprine HCl (Flexeril) 5 mg PO TID PRN PRN Reason: muscle spasms Last Admin: 06/14/19 06:05 Dose: 5 mg Docusate Sodium (Colace) 100 mg PO BID PRN PRN Reason: Constipation Last Admin: 06/15/19 05:41 Dose: 100 mg Famotidine (Pepcid) 20 mg PO BEDTIME [facility] Last Admin: 06/14/19 21:13 Dose: 20 mg Guaifenesin (Mucinex) 600 mg PO TID [facility] Hydrochlorothiazide (Hydrochlorothiazide) 25 mg PO DAILY [facility] Last Admin: 06/15/19 08:50 Dose: 25 mg Hydromorphone HCl (Dilaudid) 0.25 mg IVPUSH Q2H PRN PRN Reason: Pain Last Admin: 06/13/19 04:08 Dose: 0.25 mg Dextrose/Sodium Chloride (Dextrose 5%-Normal Saline) 1,000 mls @ 50 mls/hr IV ASDIRECTED [facility] Last Admin: 06/15/19 05:41 Dose: 50 mls/hr Latanoprost (Xalatan 0.005% Ophth Soln) 0 ml EYEBOTH BEDTIME [facility] Last Admin: 06/14/19 21:13 Dose: 1 drop Magnesium Oxide (Magnesium Oxide) 400 mg PO DAILY [facility] Last Admin: 06/15/19 08:50 Dose: 400 mg Miscellaneous Information (Remove Patch) 0 ea TRDERM ONETIME ONE Stop: 06/16/19 13:16 Fluticasone Propionate [Flovent] Ptom 1 puff INH BID [facility] Last Admin: 06/14/19 21:00 Dose: 1 puff Salmeterol Xinafoate (50 Mcg Ptom) 1 puff INH BID [facility] Last Admin: 06/14/19 21:00 Dose: 1 puff Ondansetron HCl (Zofran) 4 mg IVPUSH Q6H PRN PRN Reason: Nausea/Vomiting Last Admin: 06/13/19 12:34 Dose: 4 mg Oxycodone/Acetaminophen (Percocet 325-5 Mg) 1 tab PO Q4H PRN PRN Reason: Pain (moderate 4-6) Last Admin: 06/13/19 11:33 Dose: 1 tab Polyethylene Glycol (Miralax) 17 gm PO DAILY [facility] Last Admin: 06/15/19 08:50 Dose: 17 gm Potassium Chloride (Klor-Con 10) 30 meq PO DAILY [facility] Last Admin: 06/15/19 08:50 Dose: 30 meq Rosuvastatin Calcium (Crestor) 10 mg PO BEDTIME [facility] Last Admin: 06/14/19 21:13 Dose: 10 mg Discontinued Medications Albuterol (Proventil Neb Soln) 2.5 mg NEB ONETIME ONE Stop: 06/14/19 10:31 Last Admin: 06/14/19 10:57 Dose: 2.5 mg Albuterol (Proventil Neb Soln) 2.5 mg NEB Q30M PRN PRN Reason: Wheezing/ low Saturation Stop: 06/14/19 14:46 Last Admin: 06/14/19 15:25 Dose: 2.5 mg Bupivacaine HCl (Sensorcaine-Mpf 0.25%) Confirm Administered Dose 30 ml .ROUTE .STK-MED ONE Stop: 06/14/19 11:27 Last Admin: 06/14/19 14:03 Dose: 20 ml Cefazolin Sodium (Ancef) Confirm Administered Dose 2 gm .ROUTE .STK-MED ONE Stop: 06/14/19 11:27 Last Admin: 06/14/19 13:55 Dose: 2 gm Cefazolin Sodium (Ancef) Confirm Administered Dose 2 gm .ROUTE .STK-MED ONE Stop: 06/14/19 12:54 Morphine Sulfate 8 mg/Epinephrine HCl 0.3 mg/Cefuroxime Sodium 750 mg/Ketorolac Tromethamine 30 mg/Sodium Chloride 7.9 ml 0 mg .XX ASDIRECTED [facility] Stop: 06/14/19 18:00 Last Admin: 06/14/19 13:58 Dose: 788.3 mg Esmolol HCl (Esmolol) Confirm Administered Dose 100 mg .ROUTE .STK-MED ONE Stop: 06/14/19 13:11 Etomidate (Amidate) Confirm Administered Dose 40 mg IVPUSH .STK-MED ONE Stop: 06/14/19 11:55 Fentanyl (Sublimaze) Confirm Administered Dose 100 mcg .ROUTE .STK-MED ONE Stop: 06/14/19 11:54 Fentanyl (Sublimaze) Confirm Administered Dose 250 mcg .ROUTE .STK-MED ONE Stop: 06/14/19 11:56 Fentanyl (Sublimaze) 50 mcg IVPUSH Q5M PRN PRN Reason: Pain Hydromorphone HCl (Dilaudid) 0.25 mg IVPUSH ONETIME ONE Stop: 06/12/19 20:57 Last Admin: 06/12/19 21:06 Dose: 0.25 mg Hydromorphone HCl (Dilaudid) 0.25 mg IVPUSH ONETIME ONE Stop: 06/12/19 21:48 Last Admin: 06/12/19 21:48 Dose: 0.25 mg Hydromorphone HCl (Dilaudid) 0.5 mg IVPUSH Q10M PRN PRN Reason: Pain (severe 7-10) Dextrose/Sodium Chloride (Dextrose 5%-Normal Saline) 1,000 mls @ 150 mls/hr IV ASDIRECTED [facility] Last Admin: 06/12/19 21:38 Dose: 150 mls/hr Potassium Chloride/Dextrose/Sod Cl (D5 1/2 Ns W/ 20 Meq/L Kcl) 1,000 mls @ 100 mls/hr IV ASDIRECTED [facility] Dextrose/Sodium Chloride (Dextrose 5%-Normal Saline) 1,000 mls [facility] Admin: 06/13/19 00:05 Dose: 120 mls/hr Dextrose/Sodium Chloride (Dextrose 5%-Normal Saline) 1,000 mls @ 100 mls/hr IV ASDIRECTED [facility] Last Admin: 06/14/19 05:59 Dose: 100 mls/hr Magnesium Sulfate 2 gm/ Premix 50 mls @ 25 mls/hr IV ONETIME ONE Stop: 06/13/19 08:52 Last Admin: 06/13/19 07:08 Dose: 25 mls/hr Potassium Chloride 10 meq/ (Premix) 100 mls @ 100 mls/hr IV Q1H [facility] Stop: 06/14/19 12:14 Last Admin: 06/14/19 18:13 Dose: 100 mls/hr Dextrose/Sodium Chloride (Dextrose 5%-Normal Saline) 1,000 mls @ 50 mls/hr IV ASDIRECTED [facility] Lidocaine HCl (Xylocaine-Mpf 1%) Confirm Administered Dose 4 mls @ as directed .ROUTE .STK-MED ONE Stop: 06/14/19 13:28 Iodine (Iodine 2% Mild Tincture) Confirm Administered Dose 30 ml .ROUTE .STK- MED ONE Stop: 06/14/19 11:27 Last Admin: 06/14/19 13:51 Dose: 18 ml Ketamine HCl (Ketalar) Confirm Administered Dose 500 mg .ROUTE .STK-MED ONE Stop: 06/14/19 11:53 Metoclopramide HCl (Reglan) 10 mg IVPUSH ONETIME ONE Stop: 06/13/19 13:09 Last Admin: 06/13/19 13:14 Dose: 10 mg Midazolam HCl (Versed 1 Mg/Ml) Confirm Administered Dose 2 mg .ROUTE .STK-MED ONE Stop: 06/14/19 11:52 Non-Formulary Medication (Fluticasone Propionate) 1 puff INH BID [facility] Non-Formulary Medication (Salmeterol Xinafoate) 1 blister INH BID [facility] Ondansetron HCl (Zofran) Confirm Administered Dose 4 mg .ROUTE .STK-MED ONE Stop: 06/14/19 13:36 Ondansetron HCl (Zofran) 4 mg IVPUSH ONETIME PRN PRN Reason: Nausea/Vomiting Phenylephrine HCl (Phenylephrine In Ns 100 Mcg/Ml) Confirm Administered Dose 1 mg .ROUTE .STK-MED ONE Stop: 06/14/19 13:10 Phenylephrine HCl (Phenylephrine In Ns 100 Mcg/Ml) Confirm Administered Dose 1 mg .ROUTE .STK-MED ONE Stop: 06/14/19 13:53 Scopolamine (Transderm-Scop) 1.5 mg TOP ONETIME ONE Stop: 06/13/19 13:08 Last Admin: 06/13/19 13:18 Dose: 1.5 mg Succinylcholine Chloride (Succinylcholine In Ns Pf) Confirm Administered Dose 100 mg .ROUTE .STK-MED ONE Stop: 06/14/19 13:28 Tranexamic Acid (Cyklokapron) Confirm Administered Dose 1,000 mg .ROUTE .STK- MED ONE Stop: 06/14/19 11:26 Last Admin: 06/14/19 13:58 Dose: 1,000 mg Vancomycin HCl (Vancomycin) Confirm Administered Dose 1 gm .ROUTE .[employer]-MED ONE Stop: 06/14/19 11:27 Last Admin: 06/14/19 13:58 Dose: 1 gm - Exam Quality Assessment: Supplemental Oxygen General: Alert, Oriented HEENT: Pupils Equal, Mucous Membr. Moist/[place] Neck: Supple Lungs: Normal Respiratory Effort, Rhonchi Cardiovascular: Regular Rate, Regular Rhythm GI/Abdominal Exam: Normal Bowel Sounds, Soft, Non-Tender, Guarding Extremities: Normal Inspection, Normal Range of Motion, Non-Tender, No Pedal Edema Skin: Warm, Dry, Intact Psy/Mental Status: Alert, Normal Affect, Normal Mood Sepsis Event Note - Evaluation Sepsis Screening Result: No Definite Risk - Focused Exam Vital Signs: Vital Signs Temp Pulse Resp BP Pulse Ox 06/15/19 08:48 126/61 06/15/19 08:44 97.5 F 65 22 H 126/61 90 L 06/15/19 05:45 73 16 117/86 95 06/15/19 00:44 66 93 L 06/15/19 00:42 64 12 109/63 93 L Date Exam was Performed: 06/15/19 Time Exam was Performed: 10:55 - Problem List Review Problem List Initiated/Reviewed/Updated: Yes - My Orders Last 24 Hours: My Active Orders 06/14/19 19:54 ARMIN Hose [Antiembolic Hose] [OM.PC] Routine 06/14/19 19:55 Ambulate [RC] ASDIRECTED Antiembolic Devices [RC] PER UNIT ROUTINE Up With Assistance [RC] ASDIRECTED Up to Chair [RC] ASDIRECTED 06/15/19 05:00 Dextrose 5%-0.9% NaCl [Dextrose 5%-Normal Saline] 1,000 ml IV ASDIRECTED 06/15/19 09:36 RT Chest Physiotherapy [RC] ASDIRECTED 06/15/19 15:00 guaiFENesin [Mucinex] 600 mg PO TID - Plan Plan:: I/P: Acute: Right hip fracture: POD #1 total right hip arthroplasty -Patient reports lost balance and fell -Baseline ambulatory, still works 40 hrs a week -Already has right hand immobilized 2/2 5th digit extensor tendon surgery as below -Unable to bear weight on right side. Right extremity shortened and externally rotated -Confirmed with hip and femur x-ray -CXR shows nothing acute -12-Lead EKG shows NSR with frequent PACs, Enlarged P-waves, Early R-wave transition, Diffuse early repolarization pattern -Hgb 12.7-->11.5-->11.8; Platelet 324-->228, INR 1.00 -Dr. Grace, orthopedic surgeon contacted by ED - Plans surgical fixation today around noon -On home plavix and ASA- hold -Type and screen patient only had 300 mL of blood loss -Advance diet as tolerated -IS -PT/OT -CM/SW - will likely require rehab SNF stay -Bedrest for now -Pain medications, muscle relaxants as ordered -Hx/o constipation - laxatives/stool softeners as ordered -2.4% risk of perioperative mortality -Mendez continued last night -Urine output is still low we will continue IV fluids until improved output S/P fall -Lost balance while folding clothes -Resulting in hip fx as above -Reports hit head on dresser -ED CT scan negative for acute change -CXR negative for acute change -Stable S/P Right 5th digit extensor tendon fixation -Reports took part of 4th digit tendon to repair 5th digit -Immobilizer in place -Stable S/P Hypomagnesemia -Magnesium 1.7-->1.9-->2.0 -Monitor S/P Hypokalemia -Potassium 4.6 -Monitor Chronic: HLD HTN PVD s/p left lower extremity femoral artery grafting COPD osteopenia osteoporosis s/p right fifth digit extensor tendon repair with remaining right upper extremity splinting glaucoma hx/o lung cancer Plan: Admit to M/S/P on telemetry Other orders as indicated above Home medications as directed Will likely need SNF rehab stay Spiritual care consult AM labs as ordered DVT prophylaxis: SCDs for now; GI prophylaxis: Home Pepcid Code status: Full code; PCP: Dr. Orta LOS: Likely will need to stay through weekend pending placement
[2019-06-15] MEDS: FLUTICASONE PROPIONATE INH SCH ×2 (11:31→21:06)
[2019-06-15] MEDS: SALMETEROL XINAFOATE 50 MCG INH SCH ×2 (11:31→21:06)
[2019-06-15] MEDS: guaiFENesin 600 MG Tab.ER PO SCH ×2 (16:49→20:37)
[2019-06-15] MEDS: Famotidine 20 MG Tab PO SCH (20:36)
[2019-06-15] MEDS: Latanoprost 0.005% Ophth Soln 2.5 ML Bottle EYEBOTH SCH (20:36)
[2019-06-15] MEDS: Rosuvastatin 10 MG Tab PO SCH (20:37)
[2019-06-16] MEDS: Calcium Carbonate/Vitamin D3 600 MG-200 Units Tab PO SCH ×2 (06:34→16:10)
[2019-06-16] MEDS: Acetaminophen 325 MG Tab PO PRN ×4 (06:34→20:52)
[2019-06-16] MEDS: Polyethylene Glycol 3350 Powder 17 GM Packet PO SCH (08:35)
[2019-06-16] MEDS: Aspirin 325 MG Tab.EC PO SCH ×2 (08:46→20:52)
[2019-06-16] MEDS: Hydrochlorothiazide 25 MG Tab PO SCH (08:46)
[2019-06-16] MEDS: Clopidogrel 75 MG Tab PO SCH (08:47)
[2019-06-16] MEDS: Potassium Chloride 10 MEQ Tab.ER PO SCH (08:47)
[2019-06-16] MEDS: guaiFENesin 600 MG Tab.ER PO SCH ×3 (08:47→20:52)
[2019-06-16] MEDS: amLODIPine 5 MG Tab PO SCH (08:47)
[2019-06-16] MEDS: Magnesium Oxide 400 MG Tab PO SCH (08:47)
[2019-06-16] MEDS: FLUTICASONE PROPIONATE INH SCH ×2 (09:06→20:14)
[2019-06-16] MEDS: SALMETEROL XINAFOATE 50 MCG INH SCH ×2 (09:06→20:14)
[2019-06-16] MEDS ORDERED: Magnesium Sulfate/Water 2 GM in Premix Bag 1 BAG IV ONE (09:17)
[2019-06-16] MEDS: Albuterol/Ipratropium 3.0-0.5 MG/3 ML Neb Soln NEB SCH ×2 (15:04→20:14)
--- NOTE | 2019-06-16 16:50 | PCM.PN ---
- General Info Date of Service: 06/16/19 Admission Dx/Problem (Free Text): Admission Diagnosis/Problem Admission Diagnosis/Problem Hip fracture requiring operative repair Subjective Update: Patient is doing well. Appetite is good urine output is good. Functional Status: Reports: Pain Controlled - Review of Systems General: Reports: No Symptoms HEENT: Reports: No Symptoms Pulmonary: Reports: No Symptoms Cardiovascular: Reports: No Symptoms Gastrointestinal: Reports: No Symptoms Musculoskeletal: Reports: No Symptoms - Patient Data Vitals - Most Recent: Last Vital Signs Temp 98.4 F 06/16/19 14:34 Pulse 70 06/16/19 14:34 Resp 15 06/16/19 14:34 BP 125/55 L 06/16/19 14:34 Pulse Ox 92 L 06/16/19 15:06 Weight - Most Recent: 116 lb 8 oz I&O - Last 24 Hours: Intake & Output 06/16/19 06/16/19 06/16/19 06:59 14:59 22:59 Intake Total 1100 1100 50 Output Total 650 1100 Balance 450 0 50 Lab Results Last 24 Hours: Laboratory Results - last 24 hr 06/16/19 06/16/19 Range/Units 06:16 06:16 WBC 9.86 (3.98-10.04) K/mm3 RBC 3.23 L (3.98-5.22) M/mm3 Hgb 9.5 L D (11.2-15.7) gm/dl Hct 29.3 L (34.1-44.9) % MCV 90.7 (79.4-94.8) fl MCH 29.4 (25.6-32.2) pg MCHC 32.4 (32.2-35.5) g/dl RDW Std Deviation 41.0 (36.4-46.3) fL Plt Count 192 (182-369) K/mm3 MPV 11.1 (9.4-12.3) fl Neut % (Auto) 73.6 H (34.0-71.1) % Lymph % (Auto) 9.1 L (19.3-51.7) % [place] % (Auto) 9.9 (4.7-12.5) % Eos % (Auto) 7.3 H (0.7-5.8) Baso % (Auto) 0.1 (0.1-1.2) % Neut # (Auto) 7.25 H (1.56-6.13) K/mm3 Lymph # (Auto) 0.90 L (1.18-3.74) K/mm3 [place] # (Auto) 0.98 H (0.24-0.36) K/mm3 Eos # (Auto) 0.72 H (0.04-0.36) K/mm3 Baso # (Auto) 0.01 (0.01-0.08) K/mm3 Manual Slide Review Abnormal smear Sodium 137 (136-145) mEq/L Potassium 4.0 (3.5-5.1) mEq/L Chloride 101 (98-107) mEq/L Carbon Dioxide 29 (21-32) mEq/L Anion Gap 11.0 (5-15) BUN 16 (7-18) mg/dL Creatinine 0.6 (0.55-1.02) mg/dL Est Cr Clr Drug Dosing 48.34 mL/min Estimated GFR (MDRD) > 60 (>60) mL/min BUN/Creatinine Ratio 26.7 H (14-18) Glucose 105 (83-115) mg/dL Calcium 8.6 (8.5-10.1) mg/dL Magnesium 1.7 L (1.8-2.4) mg/dl Total Bilirubin 0.4 (0.2-1.0) mg/dL AST 36 (15-37) U/L ALT 27 (14-59) U/L Alkaline Phosphatase 77 (46-116) U/L Total Protein 5.2 L (6.4-8.2) g/dl Albumin 2.1 L (3.4-5.0) g/dl Globulin 3.1 gm/dL Albumin/Globulin Ratio 0.7 L (1-2) Med Orders - Current: Current Medications Acetaminophen (Tylenol) 650 mg PO Q4H PRN PRN Reason: Pain (Mild 1-3)/fever Last Admin: 06/16/19 16:10 Dose: 650 mg Albuterol/Ipratropium (Duoneb 3.0-0.5 Mg/3 Ml) 3 ml NEB Q6HRRT [facility] Last Admin: 06/16/19 15:04 Dose: 3 ml Amlodipine Besylate (Norvasc) 7.5 mg PO DAILY [facility] Last Admin: 06/16/19 08:47 Dose: 7.5 mg Aspirin (Ecotrin) 325 mg PO BID [facility] Last Admin: 06/16/19 08:46 Dose: 325 mg Calcium Carbonate (Calcium Carbonate/Vitamin D 600 Mg-200 Unit) 2 tab PO BIDMEALS [facility] Last Admin: 06/16/19 16:10 Dose: 2 tab Clopidogrel Bisulfate (Plavix) 75 mg PO DAILY [facility] Last Admin: 06/16/19 08:47 Dose: 75 mg Cyclobenzaprine HCl (Flexeril) 5 mg PO TID PRN PRN Reason: muscle spasms Last Admin: 06/14/19 06:05 Dose: 5 mg Docusate Sodium (Colace) 100 mg PO BID PRN PRN Reason: Constipation Last Admin: 06/15/19 05:41 Dose: 100 mg Famotidine (Pepcid) 20 mg PO BEDTIME [facility] Last Admin: 06/15/19 20:36 Dose: 20 mg Guaifenesin (Mucinex) 600 mg PO TID [facility] Last Admin: 06/16/19 16:10 Dose: 600 mg Hydrochlorothiazide (Hydrochlorothiazide) 25 mg PO DAILY [facility] Last Admin: 06/16/19 08:46 Dose: 25 mg Hydromorphone HCl (Dilaudid) 0.25 mg IVPUSH Q2H PRN PRN Reason: Pain Last Admin: 06/13/19 04:08 Dose: 0.25 mg Latanoprost (Xalatan 0.005% Ophth Soln) 0 ml EYEBOTH BEDTIME [facility] Last Admin: 06/15/19 20:36 Dose: 1 drop Magnesium Oxide (Magnesium Oxide) 400 mg PO DAILY [facility] Last Admin: 06/16/19 08:47 Dose: 400 mg Fluticasone Propionate [Flovent] Ptom 1 puff INH BID [facility] Last Admin: 06/16/19 09:06 Dose: 1 puff Salmeterol Xinafoate (50 Mcg Ptom) 1 puff INH BID [facility] Last Admin: 06/16/19 09:06 Dose: 1 puff Ondansetron HCl (Zofran) 4 mg IVPUSH Q6H PRN PRN Reason: Nausea/Vomiting Last Admin: 06/13/19 12:34 Dose: 4 mg Oxycodone/Acetaminophen (Percocet 325-5 Mg) 1 tab PO Q4H PRN PRN Reason: Pain (moderate 4-6) Last Admin: 06/13/19 11:33 Dose: 1 tab Polyethylene Glycol (Miralax) 17 gm PO DAILY [facility] Last Admin: 06/16/19 08:35 Dose: Not Given Potassium Chloride (Klor-Con 10) 30 meq PO DAILY [facility] Last Admin: 06/16/19 08:47 Dose: 30 meq Rosuvastatin Calcium (Crestor) 10 mg PO BEDTIME [facility] Last Admin: 06/15/19 20:37 Dose: 10 mg Discontinued Medications Albuterol (Proventil Neb Soln) 2.5 mg NEB ONETIME ONE Stop: 06/14/19 10:31 Last Admin: 06/14/19 10:57 Dose: 2.5 mg Albuterol (Proventil Neb Soln) 2.5 mg NEB Q30M PRN PRN Reason: Wheezing/ low Saturation Stop: 06/14/19 14:46 Last Admin: 06/14/19 15:25 Dose: 2.5 mg Bupivacaine HCl (Sensorcaine-Mpf 0.25%) Confirm Administered Dose 30 ml .ROUTE .STK-MED ONE Stop: 06/14/19 11:27 Last Admin: 06/14/19 14:03 Dose: 20 ml Cefazolin Sodium (Ancef) Confirm Administered Dose 2 gm .ROUTE .STK-MED ONE Stop: 06/14/19 11:27 Last Admin: 06/14/19 13:55 Dose: 2 gm Cefazolin Sodium (Ancef) Confirm Administered Dose 2 gm .ROUTE .STK-MED ONE Stop: 06/14/19 12:54 Morphine Sulfate 8 mg/Epinephrine HCl 0.3 mg/Cefuroxime Sodium 750 mg/Ketorolac Tromethamine 30 mg/Sodium Chloride 7.9 ml 0 mg .XX ASDIRECTED [facility] Stop: 06/14/19 18:00 Last Admin: 06/14/19 13:58 Dose: 788.3 mg Esmolol HCl (Esmolol) Confirm Administered Dose 100 mg .ROUTE .STK-MED ONE Stop: 06/14/19 13:11 Etomidate (Amidate) Confirm Administered Dose 40 mg IVPUSH .STK-MED ONE Stop: 06/14/19 11:55 Fentanyl (Sublimaze) Confirm Administered Dose 100 mcg .ROUTE .STK-MED ONE Stop: 06/14/19 11:54 Fentanyl (Sublimaze) Confirm Administered Dose 250 mcg .ROUTE .STK-MED ONE Stop: 06/14/19 11:56 Fentanyl (Sublimaze) 50 mcg IVPUSH Q5M PRN PRN Reason: Pain Hydromorphone HCl (Dilaudid) 0.25 mg IVPUSH ONETIME ONE Stop: 06/12/19 20:57 Last Admin: 06/12/19 21:06 Dose: 0.25 mg Hydromorphone HCl (Dilaudid) 0.25 mg IVPUSH ONETIME ONE Stop: 06/12/19 21:48 Last Admin: 06/12/19 21:48 Dose: 0.25 mg Hydromorphone HCl (Dilaudid) 0.5 mg IVPUSH Q10M PRN PRN Reason: Pain (severe 7-10) Dextrose/Sodium Chloride (Dextrose 5%-Normal Saline) 1,000 mls @ 150 mls/hr IV ASDIRECTED [facility] Last Admin: 06/12/19 21:38 Dose: 150 mls/hr Potassium Chloride/Dextrose/Sod Cl (D5 1/2 Ns W/ 20 Meq/L Kcl) 1,000 mls @ 100 mls/hr IV ASDIRECTED [facility] Dextrose/Sodium Chloride (Dextrose 5%-Normal Saline) 1,000 mls @ 120 mls/hr IV ASDIRECTED [facility] Last Admin: 06/13/19 00:05 Dose: 120 mls/hr Dextrose/Sodium Chloride (Dextrose 5%-Normal Saline) 1,000 mls @ 100 mls/hr IV ASDIRECTED [facility] Last Admin: 06/14/19 05:59 Dose: 100 mls/hr Magnesium Sulfate 2 gm/ Premix 50 mls @ 25 mls/hr IV ONETIME ONE Stop: 06/13/19 08:52 Last Admin: 06/13/19 07:08 Dose: 25 mls/hr Potassium Chloride 10 meq/ (Premix) 100 mls @ 100 mls/hr IV Q1H [facility] Stop: 06/14/19 12:14 Last Admin: 06/14/19 18:13 Dose: 100 mls/hr Dextrose/Sodium Chloride (Dextrose 5%-Normal Saline) 1,000 mls @ 50 mls/hr IV ASDIRECTED [facility] Lidocaine HCl (Xylocaine-Mpf 1%) Confirm Administered Dose 4 mls @ as directed .ROUTE .STK-MED ONE Stop: 06/14/19 13:28 Dextrose/Sodium Chloride (Dextrose 5%-Normal Saline) 1,000 mls @ 50 mls/hr IV ASDIRECTED [facility] Last Admin: 06/15/19 05:41 Dose: 50 mls/hr Magnesium Sulfate 2 gm/ Premix 50 mls @ 25 mls/hr IV ONETIME ONE Stop: 06/16/19 11:16 Last Admin: 06/16/19 09:30 Dose: 25 mls/hr Iodine (Iodine 2% Mild Tincture) Confirm Administered Dose 30 ml .ROUTE .STK- MED ONE Stop: 06/14/19 11:27 Last Admin: 06/14/19 13:51 Dose: 18 ml Ketamine HCl (Ketalar) Confirm Administered Dose 500 mg .ROUTE .STK-MED ONE Stop: 06/14/19 11:53 Metoclopramide HCl (Reglan) 10 mg IVPUSH ONETIME ONE Stop: 06/13/19 13:09 Last Admin: 06/13/19 13:14 Dose: 10 mg Midazolam HCl (Versed 1 Mg/Ml) Confirm Administered Dose 2 mg .ROUTE .STK-MED ONE Stop: 06/14/19 11:52 Miscellaneous Information (Remove Patch) 0 ea TRDERM ONETIME ONE Stop: 06/16/19 13:16 Last Admin: 06/16/19 12:33 Dose: 1 ea Non-Formulary Medication (Fluticasone Propionate) 1 puff INH BID [facility] Non-Formulary Medication (Salmeterol Xinafoate) 1 blister INH BID [facility] Ondansetron HCl (Zofran) Confirm Administered Dose 4 mg .ROUTE .STK-MED ONE Stop: 06/14/19 13:36 Ondansetron HCl (Zofran) 4 mg IVPUSH ONETIME PRN PRN Reason: Nausea/Vomiting Phenylephrine HCl (Phenylephrine In Ns 100 Mcg/Ml) Confirm Administered Dose 1 mg .ROUTE .STK-MED ONE Stop: 06/14/19 13:10 Phenylephrine HCl (Phenylephrine In Ns 100 Mcg/Ml) Confirm Administered Dose 1 mg .ROUTE .STK-MED ONE Stop: 06/14/19 13:53 Scopolamine (Transderm-Scop) 1.5 mg TOP ONETIME ONE Stop: 06/13/19 13:08 Last Admin: 06/13/19 13:18 Dose: 1.5 mg Succinylcholine Chloride (Succinylcholine In Ns Pf) Confirm Administered Dose 100 mg .ROUTE .STK-MED ONE Stop: 06/14/19 13:28 Tranexamic Acid (Cyklokapron) Confirm Administered Dose 1,000 mg .ROUTE .STK- MED ONE Stop: 06/14/19 11:26 Last Admin: 06/14/19 13:58 Dose: 1,000 mg Vancomycin HCl (Vancomycin) Confirm Administered Dose 1 gm .ROUTE .STK-MED ONE Stop: 06/14/19 11:27 Last Admin: 06/14/19 13:58 Dose: 1 gm - Exam Quality Assessment: Supplemental Oxygen General: Alert, Oriented HEENT: Pupils Equal, Mucous Membr. Moist/[place] Neck: Supple Lungs: Normal Respiratory Effort, Wheezing (Mild diffuse) Cardiovascular: Regular Rate, Regular Rhythm GI/Abdominal Exam: Normal Bowel Sounds, Soft, Non-Tender, No Distention Back Exam: Normal Inspection, Full Range of Motion Extremities: Normal Inspection, Normal Range of Motion, Non-Tender, No Pedal Edema, Normal Capillary Refill Skin: Warm, Dry, Intact Psy/Mental Status: Alert, Normal Affect, Normal Mood Sepsis Event Note - Evaluation Sepsis Screening Result: No Definite Risk - Focused Exam Vital Signs: Vital Signs Temp Pulse Resp BP Pulse Ox Pulse Ox 06/16/19 15:06 92 L 06/16/19 14:34 98.4 F 70 15 125/55 L 91 L 06/16/19 09:06 93 L 06/16/19 08:47 123/45 L 06/16/19 07:10 97.9 F 68 16 123/45 L 90 L Date Exam was Performed: 06/16/19 Time Exam was Performed: 16:46 - Problem List Review Problem List Initiated/Reviewed/Updated: Yes - My Orders Last 24 Hours: My Active Orders 06/16/19 15:00 Albuterol/Ipratropium [DuoNeb 3.0-0.5 MG/3 ML] 3 ml NEB Q6HRRT - Plan Plan:: I/P: Acute: Right hip fracture: POD #2 total right hip arthroplasty (Dr. Grace) -Patient reports lost balance and fell -Baseline ambulatory, still works 40 hrs a week -Already has right hand immobilized 2/2 5th digit extensor tendon surgery as below -Unable to bear weight on right side. Right extremity shortened and externally rotated -Confirmed with hip and femur x-ray -CXR shows nothing acute -12-Lead EKG shows NSR with frequent PACs, Enlarged P-waves, Early R-wave transition, Diffuse early repolarization pattern -Hgb 12.7-->11.5-->11.8-->9.5; Platelet 324-->228-->192, INR 1.00 -On home plavix and ASA- hold -Type and screen: patient only had 300 mL of blood loss -Advance diet as tolerated -IS -PT/OT -CM/SW - will likely require rehab SNF stay -Pain medications, muscle relaxants as ordered -Hx/o constipation - laxatives/stool softeners as ordered -2.4% risk of perioperative mortality -Mendez continued last night -Urine output is still low we will continue IV fluids until improved output S/P fall -Lost balance while folding clothes -Resulting in hip fx as above -Reports hit head on dresser -ED CT scan negative for acute change -CXR negative for acute change -Stable S/P Right 5th digit extensor tendon fixation -Reports took part of 4th digit tendon to repair 5th digit -Immobilizer in place -Stable S/P Hypomagnesemia -Magnesium 1.7-->1.9-->2.0 -Monitor S/P Hypokalemia -Potassium 4.6 -Monitor Chronic: HLD HTN PVD s/p left lower extremity femoral artery grafting COPD osteopenia osteoporosis s/p right fifth digit extensor tendon repair with remaining right upper extremity splinting glaucoma hx/o lung cancer Plan: Admit to M/S/P on telemetry Other orders as indicated above Home medications as directed Will likely need SNF rehab stay Spiritual care consult AM labs as ordered DVT prophylaxis: SCDs for now; GI prophylaxis: Home Pepcid Code status: Full code; PCP: Dr. Orta LOS: Likely will need to stay through weekend pending placement
[2019-06-16] MEDS: Latanoprost 0.005% Ophth Soln 2.5 ML Bottle EYEBOTH SCH (20:51)
[2019-06-16] MEDS: Famotidine 20 MG Tab PO SCH (20:52)
[2019-06-16] MEDS: Rosuvastatin 10 MG Tab PO SCH (20:52)
[2019-06-17] MEDS: Albuterol/Ipratropium 3.0-0.5 MG/3 ML Neb Soln NEB SCH ×4 (02:50→21:22)
[2019-06-17] MEDS: Calcium Carbonate/Vitamin D3 600 MG-200 Units Tab PO SCH ×2 (06:44→17:03)
[2019-06-17] MEDS: Acetaminophen 325 MG Tab PO PRN ×3 (07:52→21:55)
[2019-06-17] MEDS: amLODIPine 5 MG Tab PO SCH (07:59)
[2019-06-17] MEDS: Aspirin 325 MG Tab.EC PO SCH ×2 (08:00→21:57)
[2019-06-17] MEDS: Magnesium Oxide 400 MG Tab PO SCH (08:00)
[2019-06-17] MEDS: Hydrochlorothiazide 25 MG Tab PO SCH (08:00)
[2019-06-17] MEDS: guaiFENesin 600 MG Tab.ER PO SCH ×3 (08:00→21:57)
[2019-06-17] MEDS: Potassium Chloride 10 MEQ Tab.ER PO SCH (08:00)
[2019-06-17] MEDS: Clopidogrel 75 MG Tab PO SCH (08:00)
[2019-06-17] MEDS: Polyethylene Glycol 3350 Powder 17 GM Packet PO SCH (08:00)
[2019-06-17] MEDS: FLUTICASONE PROPIONATE INH SCH ×2 (08:08→21:22)
[2019-06-17] MEDS: SALMETEROL XINAFOATE 50 MCG INH SCH ×2 (08:08→21:22)
--- NOTE | 2019-06-17 13:14 | PCM.PN ---
- General Info Date of Service: 06/17/19 Admission Dx/Problem (Free Text): Admission Diagnosis/Problem Admission Diagnosis/Problem Hip fracture requiring operative repair Functional Status: Reports: Pain Controlled, Tolerating Diet, Ambulating, Urinating, Incentive Spirometry, Other (ac[place]). Denies: New Symptoms - Review of Systems General: Reports: Weakness. Denies: Fever, Fatigue, Malaise, Chills HEENT: Reports: No Symptoms. Denies: Headaches, Sore Throat Pulmonary: Reports: No Symptoms, Cough (chronic). Denies: Shortness of Breath, Pleuritic Chest Pain, Sputum, Wheezing Cardiovascular: Reports: No Symptoms. Denies: Chest Pain, Palpitations, Lightheadedness Gastrointestinal: Reports: No Symptoms. Denies: Abdominal Pain, Constipation, Diarrhea, Nausea, Vomiting Genitourinary: Reports: No Symptoms. Denies: Pain Musculoskeletal: Reports: Leg Pain Skin: Reports: No Symptoms. Denies: Cyanosis Neurological: Reports: Difficulty Walking, Weakness, Gait Disturbance. Denies: Confusion Psychiatric: Reports: No Symptoms - Patient Data Vitals - Most Recent: Last Vital Signs Temp 98.2 F 06/17/19 07:58 Pulse 102 H 06/17/19 08:38 Resp 20 06/17/19 08:38 BP 133/84 06/17/19 08:38 Pulse Ox 92 L 06/17/19 11:00 Weight - Most Recent: 116 lb 8 oz I&O - Last 24 Hours: Intake & Output 06/16/19 06/17/19 06/17/19 22:59 06:59 14:59 Intake Total 50 600 420 Output Total 1150 Balance 50 -550 420 Lab Results Last 24 Hours: Laboratory Results - last 24 hr 06/17/19 06/17/19 Range/Units 05:16 05:16 WBC 10.10 H (3.98-10.04) K/mm3 RBC 3.67 L (3.98-5.22) M/mm3 Hgb 10.6 L (11.2-15.7) gm/dl Hct 33.4 L (34.1-44.9) % MCV 91.0 (79.4-94.8) fl MCH 28.9 (25.6-32.2) pg MCHC 31.7 L (32.2-35.5) g/dl RDW Std Deviation 42.7 (36.4-46.3) fL Plt Count 256 (182-369) K/mm3 MPV 11.1 (9.4-12.3) fl Neut % (Auto) 74.8 H (34.0-71.1) % Lymph % (Auto) 8.6 L (19.3-51.7) % [place] % (Auto) 9.9 (4.7-12.5) % Eos % (Auto) 6.5 H (0.7-5.8) Baso % (Auto) 0.2 (0.1-1.2) % Neut # (Auto) 7.55 H (1.56-6.13) K/mm3 Lymph # (Auto) 0.87 L (1.18-3.74) K/mm3 [place] # (Auto) 1.00 H (0.24-0.36) K/mm3 Eos # (Auto) 0.66 H (0.04-0.36) K/mm3 Baso # (Auto) 0.02 (0.01-0.08) K/mm3 Manual Slide Review Abnormal smear Sodium 135 L (136-145) mEq/L Potassium 4.4 (3.5-5.1) mEq/L Chloride 98 (98-107) mEq/L Carbon Dioxide 31 (21-32) mEq/L Anion Gap 10.4 (5-15) BUN 13 (7-18) mg/dL Creatinine 0.6 (0.55-1.02) mg/dL Est Cr Clr Drug Dosing 48.34 mL/min Estimated GFR (MDRD) > 60 (>60) mL/min BUN/Creatinine Ratio 21.7 H (14-18) Glucose 125 H (83-115) mg/dL Calcium 9.0 (8.5-10.1) mg/dL Magnesium 1.9 (1.8-2.4) mg/dl Total Bilirubin 0.5 (0.2-1.0) mg/dL AST 35 (15-37) U/L ALT 28 (14-59) U/L Alkaline Phosphatase 88 (46-116) U/L Total Protein 5.9 L (6.4-8.2) g/dl Albumin 2.4 L (3.4-5.0) g/dl Globulin 3.5 gm/dL Albumin/Globulin Ratio 0.7 L (1-2) Med Orders - Current: Current Medications Acetaminophen (Tylenol) 650 mg PO Q4H PRN PRN Reason: Pain (Mild 1-3)/fever Last Admin: 06/17/19 07:52 Dose: 650 mg Albuterol/Ipratropium (Duoneb 3.0-0.5 Mg/3 Ml) 3 ml NEB Q6HRRT [facility] Last Admin: 06/17/19 08:06 Dose: 3 ml Amlodipine Besylate (Norvasc) 7.5 mg PO DAILY [facility] Last Admin: 06/17/19 07:59 Dose: 7.5 mg Aspirin (Ecotrin) 325 mg PO BID [facility] Last Admin: 06/17/19 08:00 Dose: 325 mg Calcium Carbonate (Calcium Carbonate/Vitamin D 600 Mg-200 Unit) 2 tab PO BIDMEALS [facility] Last Admin: 06/17/19 06:44 Dose: 2 tab Clopidogrel Bisulfate (Plavix) 75 mg PO DAILY [facility] Last Admin: 06/17/19 08:00 Dose: 75 mg Cyclobenzaprine HCl (Flexeril) 5 mg PO TID PRN PRN Reason: muscle spasms Last Admin: 06/14/19 06:05 Dose: 5 mg Docusate Sodium (Colace) 100 mg PO BID PRN PRN Reason: Constipation Last Admin: 06/15/19 05:41 Dose: 100 mg Famotidine (Pepcid) 20 mg PO BEDTIME [facility] Last Admin: 06/16/19 20:52 Dose: 20 mg Guaifenesin (Mucinex) 600 mg PO TID [facility] Last Admin: 06/17/19 08:00 Dose: 600 mg Hydrochlorothiazide (Hydrochlorothiazide) 25 mg PO DAILY [facility] Last Admin: 06/17/19 08:00 Dose: 25 mg Hydromorphone HCl (Dilaudid) 0.25 mg IVPUSH Q2H PRN PRN Reason: Pain Last Admin: 06/13/19 04:08 Dose: 0.25 mg Latanoprost (Xalatan 0.005% Ophth Soln) 0 ml EYEBOTH BEDTIME [facility] Last Admin: 06/16/19 20:51 Dose: 1 drop Magnesium Oxide (Magnesium Oxide) 400 mg PO DAILY [facility] Last Admin: 06/17/19 08:00 Dose: 400 mg Fluticasone Propionate [Flovent] Ptom 1 puff INH BID [facility] Last Admin: 06/17/19 08:08 Dose: 1 puff Salmeterol Xinafoate (50 Mcg Ptom) 1 puff INH BID [facility] Last Admin: 06/17/19 08:08 Dose: 1 puff Ondansetron HCl (Zofran) 4 mg IVPUSH Q6H PRN PRN Reason: Nausea/Vomiting Last Admin: 06/13/19 12:34 Dose: 4 mg Oxycodone/Acetaminophen (Percocet 325-5 Mg) 1 tab PO Q4H PRN PRN Reason: Pain (moderate 4-6) Last Admin: 06/13/19 11:33 Dose: 1 tab Polyethylene Glycol (Miralax) 17 gm PO DAILY [facility] Last Admin: 06/16/19 08:35 Dose: Not Given Potassium Chloride (Klor-Con 10) 30 meq PO DAILY [facility] Last Admin: 06/17/19 08:00 Dose: 30 meq Rosuvastatin Calcium (Crestor) 10 mg PO BEDTIME [facility] Last Admin: 06/16/19 20:52 Dose: 10 mg Discontinued Medications Albuterol (Proventil Neb Soln) 2.5 mg NEB ONETIME ONE Stop: 06/14/19 10:31 Last Admin: 06/14/19 10:57 Dose: 2.5 mg Albuterol (Proventil Neb Soln) 2.5 mg NEB Q30M PRN PRN Reason: Wheezing/ low Saturation Stop: 06/14/19 14:46 Last Admin: 06/14/19 15:25 Dose: 2.5 mg Bupivacaine HCl (Sensorcaine-Mpf 0.25%) Confirm Administered Dose 30 ml .ROUTE .STK-MED ONE Stop: 06/14/19 11:27 Last Admin: 06/14/19 14:03 Dose: 20 ml Cefazolin Sodium (Ancef) Confirm Administered Dose 2 gm .ROUTE .STK-MED ONE Stop: 06/14/19 11:27 Last Admin: 06/14/19 13:55 Dose: 2 gm Cefazolin Sodium (Ancef) Confirm Administered Dose 2 gm .ROUTE .STK-MED ONE Stop: 06/14/19 12:54 Morphine Sulfate 8 mg/Epinephrine HCl 0.3 mg/Cefuroxime Sodium 750 mg/Ketorolac Tromethamine 30 mg/Sodium Chloride 7.9 ml 0 mg .XX ASDIRECTED [facility] Stop: 06/14/19 18:00 Last Admin: 06/14/19 13:58 Dose: 788.3 mg Esmolol HCl (Esmolol) Confirm Administered Dose 100 mg .ROUTE .STK-MED ONE Stop: 06/14/19 13:11 Etomidate (Amidate) Confirm Administered Dose 40 mg IVPUSH .STK-MED ONE Stop: 06/14/19 11:55 Fentanyl (Sublimaze) Confirm Administered Dose 100 mcg .ROUTE .STK-MED ONE Stop: 06/14/19 11:54 Fentanyl (Sublimaze) Confirm Administered Dose 250 mcg .ROUTE .STK-MED ONE Stop: 06/14/19 11:56 Fentanyl (Sublimaze) 50 mcg IVPUSH Q5M PRN PRN Reason: Pain Hydromorphone HCl (Dilaudid) 0.25 mg IVPUSH ONETIME ONE Stop: 06/12/19 20:57 Last Admin: 06/12/19 21:06 Dose: 0.25 mg Hydromorphone HCl (Dilaudid) 0.25 mg IVPUSH ONETIME ONE Stop: 06/12/19 21:48 Last Admin: 06/12/19 21:48 Dose: 0.25 mg Hydromorphone HCl (Dilaudid) 0.5 mg IVPUSH Q10M PRN PRN Reason: Pain (severe 7-10) Dextrose/Sodium Chloride (Dextrose 5%-Normal Saline) 1,000 mls @ 150 mls/hr IV ASDIRECTED [facility] Last Admin: 06/12/19 21:38 Dose: 150 mls/hr Potassium Chloride/Dextrose/Sod Cl (D5 1/2 Ns W/ 20 Meq/L Kcl) 1,000 mls @ 100 mls/hr IV ASDIRECTED [facility] Dextrose/Sodium Chloride (Dextrose 5%-Normal Saline) 1,000 mls @ 120 mls/hr IV ASDIRECTED [facility] Last Admin: 06/13/19 00:05 Dose: 120 mls/hr Dextrose/Sodium Chloride (Dextrose 5%-Normal Saline) 1,000 mls @ 100 mls/hr IV ASDIRECTED [facility] Last Admin: 06/14/19 05:59 Dose: 100 mls/hr Magnesium Sulfate 2 gm/ Premix 50 mls @ 25 mls/hr IV ONETIME ONE Stop: 06/13/19 08:52 Last Admin: 06/13/19 07:08 Dose: 25 mls/hr Potassium Chloride 10 meq/ (Premix) 100 mls @ 100 mls/hr IV Q1H [facility] Stop: 06/14/19 12:14 Last Admin: 06/14/19 18:13 Dose: 100 mls/hr Dextrose/Sodium Chloride (Dextrose 5%-Normal Saline) 1,000 mls @ 50 mls/hr IV ASDIRECTED [facility] Lidocaine HCl (Xylocaine-Mpf 1%) Confirm Administered Dose 4 mls @ as directed .ROUTE .STK-MED ONE Stop: 06/14/19 13:28 Dextrose/Sodium Chloride (Dextrose 5%-Normal Saline) 1,000 mls @ 50 mls/hr IV ASDIRECTED [facility] Last Admin: 06/15/19 05:41 Dose: 50 mls/hr Magnesium Sulfate 2 gm/ Premix 50 mls @ 25 mls/hr IV ONETIME ONE Stop: 06/16/19 11:16 Last Admin: 06/16/19 09:30 Dose: 25 mls/hr Iodine (Iodine 2% Mild Tincture) Confirm Administered Dose 30 ml .ROUTE .STK- MED ONE Stop: 06/14/19 11:27 Last Admin: 06/14/19 13:51 Dose: 18 ml Ketamine HCl (Ketalar) Confirm Administered Dose 500 mg .ROUTE .STK-MED ONE Stop: 06/14/19 11:53 Metoclopramide HCl (Reglan) 10 mg IVPUSH ONETIME ONE Stop: 06/13/19 13:09 Last Admin: 06/13/19 13:14 Dose: 10 mg Midazolam HCl (Versed 1 Mg/Ml) Confirm Administered Dose 2 mg .ROUTE .STK-MED ONE Stop: 06/14/19 11:52 Miscellaneous Information (Remove Patch) 0 ea TRDERM ONETIME ONE Stop: 06/16/19 13:16 Last Admin: 06/16/19 12:33 Dose: 1 ea Non-Formulary Medication (Fluticasone Propionate) 1 puff INH BID [facility] Non-Formulary Medication (Salmeterol Xinafoate) 1 blister INH BID [facility] Ondansetron HCl (Zofran) Confirm Administered Dose 4 mg .ROUTE .STK-MED ONE Stop: 06/14/19 13:36 Ondansetron HCl (Zofran) 4 mg IVPUSH ONETIME PRN PRN Reason: Nausea/Vomiting Phenylephrine HCl (Phenylephrine In Ns 100 Mcg/Ml) Confirm Administered Dose 1 mg .ROUTE .STK-MED ONE Stop: 06/14/19 13:10 Phenylephrine HCl (Phenylephrine In Ns 100 Mcg/Ml) Confirm Administered Dose 1 mg .ROUTE .STK-MED ONE Stop: 06/14/19 13:53 Scopolamine (Transderm-Scop) 1.5 mg TOP ONETIME ONE Stop: 06/13/19 13:08 Last Admin: 06/13/19 13:18 Dose: 1.5 mg Succinylcholine Chloride (Succinylcholine In Ns Pf) Confirm Administered Dose 100 mg .ROUTE .STK-MED ONE Stop: 06/14/19 13:28 Tranexamic Acid (Cyklokapron) Confirm Administered Dose 1,000 mg .ROUTE .STK- MED ONE Stop: 06/14/19 11:26 Last Admin: 06/14/19 13:58 Dose: 1,000 mg Vancomycin HCl (Vancomycin) Confirm Administered Dose 1 gm .ROUTE .STK-MED ONE Stop: 06/14/19 11:27 Last Admin: 06/14/19 13:58 Dose: 1 gm - Exam Quality Assessment: DVT Prophylaxis General: Alert, Oriented, Cooperative, No Acute Distress HEENT: Pupils Equal, Pupils Reactive, Mucous Membr. Moist/[place] Neck: Supple, Trachea Midline Lungs: Clear to Auscultation, Normal Respiratory Effort Cardiovascular: Irregular Rhythm GI/Abdominal Exam: Normal Bowel Sounds, Soft, Non-Tender, No Distention (Female) Exam: Deferred Back Exam: Normal Inspection, Full Range of Motion Extremities: Normal Capillary Refill, Leg Pain, Limited Range of Motion, Other ( Bandage in place on right leg. Cooling pack in place. ) Peripheral Pulses: 2+: Radial (L), Radial (R), Dorsalis Pedis (L), Dorsalis Pedis (R) Skin: Warm, Dry, Intact Wound/Incisions: Dressing Dry and Intact Neurological: No New Focal Deficit Psy/Mental Status: Alert Sepsis Event Note - Evaluation Sepsis Screening Result: No Definite Risk - Focused Exam Vital Signs: Vital Signs Temp Pulse Resp BP Pulse Ox Pulse Ox Pulse Ox 06/17/19 11:00 92 L 06/17/19 08:38 102 H 20 133/84 93 L 06/17/19 08:10 100 06/17/19 07:59 122/58 L 06/17/19 07:58 98.2 F 86 20 122/58 L 95 06/17/19 02:51 94 L 06/17/19 02:36 81 125/98 H 93 L 06/17/19 02:35 82 97 06/17/19 02:34 98.2 F 84 20 Date Exam was Performed: 06/17/19 Time Exam was Performed: 13:54 - Problem List & Annotations (1) Osteopenia SNOMED Code(s): 543064245 Code(s): M85.80 - OTH DISRD OF BONE DENSITY AND STRUCTURE, UNSPECIFIED SITE Status: Chronic Priority: Medium Current Visit: Yes Qualifiers: Osteopenia location: unspecified Qualified Code(s): M85.80 - Other specified disorders of bone density and structure, unspecified site (2) HLD (hyperlipidemia) SNOMED Code(s): 16727716 Code(s): E78.5 - HYPERLIPIDEMIA, UNSPECIFIED Status: Chronic Priority: Low Current Visit: No Qualifiers: Hyperlipidemia type: unspecified Qualified Code(s): E78.5 - Hyperlipidemia , unspecified (3) HTN (hypertension) SNOMED Code(s): 28751399 Code(s): I10 - ESSENTIAL (PRIMARY) HYPERTENSION Status: Chronic Priority : Medium Current Visit: No Qualifiers: Hypertension type: unspecified Qualified Code(s): I10 - Essential (primary ) hypertension (4) Osteoporosis SNOMED Code(s): 73075168 Code(s): M81.0 - AGE-RELATED OSTEOPOROSIS W/O CURRENT PATHOLOGICAL FRACTURE Status: Chronic Priority: Medium Current Visit: No (5) History of lung cancer SNOMED Code(s): 012447682, 444127310 Code(s): Z85.118 - PERSONAL HISTORY OF MALIGNANT NEOPLASM OF BRONCHUS AND LUNG Status: Chronic Priority: Medium Current Visit: No (6) History of hand surgery SNOMED Code(s): 989095480, 409618663 Code(s): Z98.890 - OTHER SPECIFIED POSTPROCEDURAL STATES Status: Chronic Priority: Medium Current Visit: Yes (7) Immobilizing cast in place SNOMED Code(s): 961970042 Code(s): Z97.8 - PRESENCE OF OTHER SPECIFIED DEVICES Status: Chronic Priority: Medium Current Visit: Yes (8) COPD not affecting current episode of care SNOMED Code(s): 72442174 Code(s): J44.9 - CHRONIC OBSTRUCTIVE PULMONARY DISEASE, UNSPECIFIED Status : Chronic Priority: Medium Current Visit: No (9) Fracture of hip, right, closed SNOMED Code(s): 545813162 Code(s): S72.001A - FRACTURE OF UNSP PART OF NECK OF RIGHT FEMUR, INIT Status: Acute Priority: High Current Visit: Yes Qualifiers: Encounter type: initial encounter Qualified Code(s): S72.001A - Fracture of unspecified part of neck of right femur, initial encounter for closed fracture (10) Minor closed head injury SNOMED Code(s): 344643515, 446308058138 Code(s): S00.90XA - UNSP SUPERFICIAL INJURY OF UNSP PART OF HEAD, INIT ENCNTR Status: Acute Priority: High Current Visit: Yes (11) Peripheral vascular disease SNOMED Code(s): 029059936 Code(s): I73.9 - PERIPHERAL VASCULAR DISEASE, UNSPECIFIED Status: Chronic Priority: Medium Current Visit: No (12) Hypomagnesemia SNOMED Code(s): 041899364 Code(s): E83.42 - HYPOMAGNESEMIA Status: Resolved Priority: High Current Visit: Yes (13) Fall SNOMED Code(s): 7094798, 858237916 Code(s): W19.XXXA - UNSPECIFIED FALL, INITIAL ENCOUNTER Status: Acute Priority: High Current Visit: Yes Qualifiers: Encounter type: initial encounter Qualified Code(s): W19.XXXA - Unspecified fall, initial encounter (14) Hypokalemia SNOMED Code(s): 70404628 Code(s): E87.6 - HYPOKALEMIA Status: Resolved Priority: High Current Visit: Yes (15) S/P total hip arthroplasty SNOMED Code(s): 654617742386, 602204827348 Code(s): Z96.649 - PRESENCE OF UNSPECIFIED ARTIFICIAL HIP JOINT Status: Acute Priority: High Current Visit: Yes Qualifiers: Laterality: right Qualified Code(s): Z96.641 - Presence of right artificial hip joint - Problem List Review Problem List Initiated/Reviewed/Updated: Yes - Plan Plan:: I/P: Acute: Right hip fracture: POD #3 total right hip arthroplasty (Dr. Grace) -Patient reports lost balance and fell -Baseline ambulatory, still works 40 hrs a week -Already has right hand immobilized 2/2 5th digit extensor tendon surgery as below -Unable to bear weight on right side. Right extremity shortened and externally rotated -Confirmed with hip and femur x-ray -CXR shows nothing acute -12-Lead EKG shows NSR with frequent PACs, Enlarged P-waves, Early R-wave transition, Diffuse early repolarization pattern -Hgb 12.7-->11.5-->11.8-->9.5-->10.6; Platelet 324-->228-->192-->256, INR 1.00 -On home plavix and ASA- hold -Type and screen: patient only had 300 mL of blood loss -Advance diet as tolerated -IS -PT/OT -CM/SW - will likely require rehab SNF stay -Pain medications, muscle relaxants as ordered -Hx/o constipation - laxatives/stool softeners as ordered -2.4% risk of perioperative mortality -Mendez removed -Urine output improved S/P fall -Lost balance while folding clothes -Resulting in hip fx as above -Reports hit head on dresser -ED CT scan negative for acute change -CXR negative for acute change -Stable S/P Right 5th digit extensor tendon fixation -Reports took part of 4th digit tendon to repair 5th digit -Immobilizer in place -Stable S/P Hypomagnesemia -Magnesium 1.7-->1.9-->2.0-->1.7--->1.9 -Monitor S/P Hypokalemia -Potassium 4.4 -Monitor Chronic: HLD HTN PVD s/p left lower extremity femoral artery grafting COPD osteopenia osteoporosis s/p right fifth digit extensor tendon repair with remaining right upper extremity splinting glaucoma hx/o lung cancer Plan: Admit to M/S/P on telemetry Other orders as indicated above Home medications as directed Will likely need SNF rehab stay Spiritual care consult AM labs as ordered DVT prophylaxis: SCDs for now; GI prophylaxis: Home Pepcid Code status: Full code; PCP: Dr. You LOS: Likely discharge tomorrow pending placement.
[2019-06-17] MEDS: Cyclobenzaprine 10 MG Tab PO PRN (13:36)
--- NOTE | 2019-06-17 14:12 | PCM.SURGPN ---
- General Info Date of Service: 06/17/19 POD#: 3 Functional Status: Reports: Pain Controlled, Tolerating Diet, Ambulating - Patient Data Vitals - Most Recent: Last Vital Signs Temp 98.2 F 06/17/19 07:58 Pulse 102 H 06/17/19 08:38 Resp 20 06/17/19 08:38 BP 133/84 06/17/19 08:38 Pulse Ox 92 L 06/17/19 11:00 Weight - Most Recent: 116 lb 8 oz I&O - Last 24 Hours: Intake & Output 06/16/19 06/17/19 06/17/19 22:59 06:59 14:59 Intake Total 50 600 420 Output Total 1150 Balance 50 -550 420 Lab Results Last 24 Hrs: Laboratory Results - last 24 hr 06/17/19 06/17/19 Range/Units 05:16 05:16 WBC 10.10 H (3.98-10.04) K/mm3 RBC 3.67 L (3.98-5.22) M/mm3 Hgb 10.6 L (11.2-15.7) gm/dl Hct 33.4 L (34.1-44.9) % MCV 91.0 (79.4-94.8) fl MCH 28.9 (25.6-32.2) pg MCHC 31.7 L (32.2-35.5) g/dl RDW Std Deviation 42.7 (36.4-46.3) fL Plt Count 256 (182-369) K/mm3 MPV 11.1 (9.4-12.3) fl Neut % (Auto) 74.8 H (34.0-71.1) % Lymph % (Auto) 8.6 L (19.3-51.7) % Bowman % (Auto) 9.9 (4.7-12.5) % Eos % (Auto) 6.5 H (0.7-5.8) Baso % (Auto) 0.2 (0.1-1.2) % Neut # (Auto) 7.55 H (1.56-6.13) K/mm3 Lymph # (Auto) 0.87 L (1.18-3.74) K/mm3 Bowman # (Auto) 1.00 H (0.24-0.36) K/mm3 Eos # (Auto) 0.66 H (0.04-0.36) K/mm3 Baso # (Auto) 0.02 (0.01-0.08) K/mm3 Manual Slide Review Abnormal smear Sodium 135 L (136-145) mEq/L Potassium 4.4 (3.5-5.1) mEq/L Chloride 98 (98-107) mEq/L Carbon Dioxide 31 (21-32) mEq/L Anion Gap 10.4 (5-15) BUN 13 (7-18) mg/dL Creatinine 0.6 (0.55-1.02) mg/dL Est Cr Clr Drug Dosing 48.34 mL/min Estimated GFR (MDRD) > 60 (>60) mL/min BUN/Creatinine Ratio 21.7 H (14-18) Glucose 125 H (83-115) mg/dL Calcium 9.0 (8.5-10.1) mg/dL Magnesium 1.9 (1.8-2.4) mg/dl Total Bilirubin 0.5 (0.2-1.0) mg/dL AST 35 (15-37) U/L ALT 28 (14-59) U/L Alkaline Phosphatase 88 (46-116) U/L Total Protein 5.9 L (6.4-8.2) g/dl Albumin 2.4 L (3.4-5.0) g/dl Globulin 3.5 gm/dL Albumin/Globulin Ratio 0.7 L (1-2) Med Orders - Current: Current Medications Acetaminophen (Tylenol) 650 mg PO Q4H PRN PRN Reason: Pain (Mild 1-3)/fever Last Admin: 06/17/19 13:35 Dose: 650 mg Albuterol/Ipratropium (Duoneb 3.0-0.5 Mg/3 Ml) 3 ml NEB Q6HRRT [facility] Last Admin: 06/17/19 08:06 Dose: 3 ml Amlodipine Besylate (Norvasc) 7.5 mg PO DAILY [facility] Last Admin: 06/17/19 07:59 Dose: 7.5 mg Aspirin (Ecotrin) 325 mg PO BID [facility] Last Admin: 06/17/19 08:00 Dose: 325 mg Calcium Carbonate (Calcium Carbonate/Vitamin D 600 Mg-200 Unit) 2 tab PO BIDMEALS [facility] Last Admin: 06/17/19 06:44 Dose: 2 tab Clopidogrel Bisulfate (Plavix) 75 mg PO DAILY [facility] Last Admin: 06/17/19 08:00 Dose: 75 mg Cyclobenzaprine HCl (Flexeril) 5 mg PO TID PRN PRN Reason: muscle spasms Last Admin: 06/17/19 13:36 Dose: 5 mg Docusate Sodium (Colace) 100 mg PO BID PRN PRN Reason: Constipation Last Admin: 06/15/19 05:41 Dose: 100 mg Famotidine (Pepcid) 20 mg PO BEDTIME [facility] Last Admin: 06/16/19 20:52 Dose: 20 mg Guaifenesin (Mucinex) 600 mg PO TID [facility] Last Admin: 06/17/19 08:00 Dose: 600 mg Hydrochlorothiazide (Hydrochlorothiazide) 25 mg PO DAILY [facility] Last Admin: 06/17/19 08:00 Dose: 25 mg Hydromorphone HCl (Dilaudid) 0.25 mg IVPUSH Q2H PRN PRN Reason: Pain Last Admin: 06/13/19 04:08 Dose: 0.25 mg Latanoprost (Xalatan 0.005% Ophth Soln) 0 ml EYEBOTH BEDTIME [facility] Last Admin: 06/16/19 20:51 Dose: 1 drop Magnesium Oxide (Magnesium Oxide) 400 mg PO DAILY [facility] Last Admin: 06/17/19 08:00 Dose: 400 mg Fluticasone Propionate [Flovent] Ptom 1 puff INH BID [facility] Last Admin: 06/17/19 08:08 Dose: 1 puff Salmeterol Xinafoate (50 Mcg Ptom) 1 puff INH BID [facility] Last Admin: 06/17/19 08:08 Dose: 1 puff Ondansetron HCl (Zofran) 4 mg IVPUSH Q6H PRN PRN Reason: Nausea/Vomiting Last Admin: 06/13/19 12:34 Dose: 4 mg Oxycodone/Acetaminophen (Percocet 325-5 Mg) 1 tab PO Q4H PRN PRN Reason: Pain (moderate 4-6) Last Admin: 06/13/19 11:33 Dose: 1 tab Polyethylene Glycol (Miralax) 17 gm PO DAILY [facility] Last Admin: 06/17/19 08:00 Dose: 17 gm Potassium Chloride (Klor-Con 10) 30 meq PO DAILY [facility] Last Admin: 06/17/19 08:00 Dose: 30 meq Rosuvastatin Calcium (Crestor) 10 mg PO BEDTIME [facility] Last Admin: 06/16/19 20:52 Dose: 10 mg Discontinued Medications Albuterol (Proventil Neb Soln) 2.5 mg NEB ONETIME ONE Stop: 06/14/19 10:31 Last Admin: 06/14/19 10:57 Dose: 2.5 mg Albuterol (Proventil Neb Soln) 2.5 mg NEB Q30M PRN PRN Reason: Wheezing/ low Saturation Stop: 06/14/19 14:46 Last Admin: 06/14/19 15:25 Dose: 2.5 mg Bupivacaine HCl (Sensorcaine-Mpf 0.25%) Confirm Administered Dose 30 ml .ROUTE .STK-MED ONE Stop: 06/14/19 11:27 Last Admin: 06/14/19 14:03 Dose: 20 ml Cefazolin Sodium (Ancef) Confirm Administered Dose 2 gm .ROUTE .STK-MED ONE Stop: 06/14/19 11:27 Last Admin: 06/14/19 13:55 Dose: 2 gm Cefazolin Sodium (Ancef) Confirm Administered Dose 2 gm .ROUTE .STK-MED ONE Stop: 06/14/19 12:54 Morphine Sulfate 8 mg/Epinephrine HCl 0.3 mg/Cefuroxime Sodium 750 mg/Ketorolac Tromethamine 30 mg/Sodium Chloride 7.9 ml 0 mg .XX ASDIRECTED [facility] Stop: 06/14/19 18:00 Last Admin: 06/14/19 13:58 Dose: 788.3 mg Esmolol HCl (Esmolol) Confirm Administered Dose 100 mg .ROUTE .STK-MED ONE Stop: 06/14/19 13:11 Etomidate (Amidate) Confirm Administered Dose 40 mg IVPUSH .STK-MED ONE Stop: 06/14/19 11:55 Fentanyl (Sublimaze) Confirm Administered Dose 100 mcg .ROUTE .STK-MED ONE Stop: 06/14/19 11:54 Fentanyl (Sublimaze) Confirm Administered Dose 250 mcg .ROUTE .STK-MED ONE Stop: 06/14/19 11:56 Fentanyl (Sublimaze) 50 mcg IVPUSH Q5M PRN PRN Reason: Pain Hydromorphone HCl (Dilaudid) 0.25 mg IVPUSH ONETIME ONE Stop: 06/12/19 20:57 Last Admin: 06/12/19 21:06 Dose: 0.25 mg Hydromorphone HCl (Dilaudid) 0.25 mg IVPUSH ONETIME ONE Stop: 06/12/19 21:48 Last Admin: 06/12/19 21:48 Dose: 0.25 mg Hydromorphone HCl (Dilaudid) 0.5 mg IVPUSH Q10M PRN PRN Reason: Pain (severe 7-10) Dextrose/Sodium Chloride (Dextrose 5%-Normal Saline) 1,000 mls @ 150 mls/hr IV ASDIRECTED [facility] Last Admin: 06/12/19 21:38 Dose: 150 mls/hr Potassium Chloride/Dextrose/Sod Cl (D5 1/2 Ns W/ 20 Meq/L Kcl) 1,000 mls @ 100 mls/hr IV ASDIRECTED [facility] Dextrose/Sodium Chloride (Dextrose 5%-Normal Saline) 1,000 mls @ 120 mls/hr IV ASDIRECTED [facility] Last Admin: 06/13/19 00:05 Dose: 120 mls/hr Dextrose/Sodium Chloride (Dextrose 5%-Normal Saline) 1,000 mls @ 100 mls/hr IV ASDIRECTED [facility] Last Admin: 06/14/19 05:59 Dose: 100 mls/hr Magnesium Sulfate 2 gm/ Premix 50 mls @ 25 mls/hr IV ONETIME ONE Stop: 06/13/19 08:52 Last Admin: 06/13/19 07:08 Dose: 25 mls/hr Potassium Chloride 10 meq/ (Premix) 100 mls @ 100 mls/hr IV Q1H [facility] Stop: 06/14/19 12:14 Last Admin: 06/14/19 18:13 Dose: 100 mls/hr Dextrose/Sodium Chloride (Dextrose 5%-Normal Saline) 1,000 mls @ 50 mls/hr IV ASDIRECTED [facility] Lidocaine HCl (Xylocaine-Mpf 1%) Confirm Administered Dose 4 mls @ as directed .ROUTE .STK-MED ONE Stop: 06/14/19 13:28 Dextrose/Sodium Chloride (Dextrose 5%-Normal Saline) 1,000 mls @ 50 mls/hr IV ASDIRECTED [facility] Last Admin: 06/15/19 05:41 Dose: 50 mls/hr Magnesium Sulfate 2 gm/ Premix 50 mls @ 25 mls/hr IV ONETIME ONE Stop: 06/16/19 11:16 Last Admin: 06/16/19 09:30 Dose: 25 mls/hr Iodine (Iodine 2% Mild Tincture) Confirm Administered Dose 30 ml .ROUTE .STK- MED ONE Stop: 06/14/19 11:27 Last Admin: 06/14/19 13:51 Dose: 18 ml Ketamine HCl (Ketalar) Confirm Administered Dose 500 mg .ROUTE .STK-MED ONE Stop: 06/14/19 11:53 Metoclopramide HCl (Reglan) 10 mg IVPUSH ONETIME ONE Stop: 06/13/19 13:09 Last Admin: 06/13/19 13:14 Dose: 10 mg Midazolam HCl (Versed 1 Mg/Ml) Confirm Administered Dose 2 mg .ROUTE .STK-MED ONE Stop: 06/14/19 11:52 Miscellaneous Information (Remove Patch) 0 ea TRDERM ONETIME ONE Stop: 06/16/19 13:16 Last Admin: 06/16/19 12:33 Dose: 1 ea Non-Formulary Medication (Fluticasone Propionate) 1 puff INH BID [facility] Non-Formulary Medication (Salmeterol Xinafoate) 1 blister INH BID [facility] Ondansetron HCl (Zofran) Confirm Administered Dose 4 mg .ROUTE .STK-MED ONE Stop: 06/14/19 13:36 Ondansetron HCl (Zofran) 4 mg IVPUSH ONETIME PRN PRN Reason: Nausea/Vomiting Phenylephrine HCl (Phenylephrine In Ns 100 Mcg/Ml) Confirm Administered Dose 1 mg .ROUTE .STK-MED ONE Stop: 06/14/19 13:10 Phenylephrine HCl (Phenylephrine In Ns 100 Mcg/Ml) Confirm Administered Dose 1 mg .ROUTE .STK-MED ONE Stop: 06/14/19 13:53 Scopolamine (Transderm-Scop) 1.5 mg TOP ONETIME ONE Stop: 06/13/19 13:08 Last Admin: 06/13/19 13:18 Dose: 1.5 mg Succinylcholine Chloride (Succinylcholine In Ns Pf) Confirm Administered Dose 100 mg .ROUTE .STK-MED ONE Stop: 06/14/19 13:28 Tranexamic Acid (Cyklokapron) Confirm Administered Dose 1,000 mg .ROUTE .STK- MED ONE Stop: 06/14/19 11:26 Last Admin: 06/14/19 13:58 Dose: 1,000 mg Vancomycin HCl (Vancomycin) Confirm Administered Dose 1 gm .ROUTE .STK-MED ONE Stop: 06/14/19 11:27 Last Admin: 06/14/19 13:58 Dose: 1 gm - Exam Wound/Incisions: Dressing Dry and Intact General: Alert, Cooperative, No Acute Distress Lungs: Normal Respiratory Effort Extremities: Other (NVS intact for surgical limb. Right thigh soft.) Sepsis Event Note - Evaluation Sepsis Screening Result: No Definite Risk - Focused Exam Vital Signs: Vital Signs Temp Pulse Resp BP Pulse Ox Pulse Ox Pulse Ox 06/17/19 11:00 92 L 06/17/19 08:38 102 H 20 133/84 93 L 06/17/19 08:10 100 06/17/19 07:59 122/58 L 06/17/19 07:58 98.2 F 86 20 122/58 L 95 06/17/19 02:51 94 L 06/17/19 02:36 81 125/98 H 93 L 06/17/19 02:35 82 97 06/17/19 02:34 98.2 F 84 20 Date Exam was Performed: 06/17/19 Time Exam was Performed: 14:09 - Problem List Review Problem List Initiated/Reviewed/Updated: Yes - My Orders Last 24 Hours: Active Orders 24 hr Category Date Time Status Albuterol/Ipratropium [DuoNeb 3.0-0.5 MG/3 ML] Med 06/16/19 15:00 Active 3 ml NEB Q6HRRT Medication Orders Acetaminophen (Tylenol) 650 mg PO Q4H PRN PRN Reason: Pain (Mild 1-3)/fever Last Admin: 06/17/19 13:35 Dose: 650 mg Admin: 06/17/19 07:52 Dose: 650 mg Admin: 06/16/19 20:52 Dose: 650 mg Admin: 06/16/19 16:10 Dose: 650 mg Admin: 06/16/19 11:28 Dose: 650 mg Admin: 06/16/19 06:34 Dose: 650 mg Admin: 06/15/19 20:39 Dose: 650 mg Admin: 06/15/19 16:49 Dose: 650 mg Admin: 06/15/19 08:50 Dose: 650 mg Admin: 06/14/19 06:04 Dose: 650 mg Admin: 06/13/19 23:50 Dose: 650 mg Admin: 06/13/19 16:13 Dose: 650 mg Albuterol/Ipratropium (Duoneb 3.0-0.5 Mg/3 Ml) 3 ml NEB Q6HRRT [facility] Last Admin: 06/17/19 08:06 Dose: 3 ml Admin: 06/17/19 02:50 Dose: 3 ml Admin: 06/16/19 20:14 Dose: 3 ml Admin: 06/16/19 15:04 Dose: 3 ml Amlodipine Besylate (Norvasc) 7.5 mg PO DAILY [facility] Last Admin: 06/17/19 07:59 Dose: 7.5 mg Admin: 06/16/19 08:47 Dose: 7.5 mg Admin: 06/15/19 08:48 Dose: 7.5 mg Admin: 06/14/19 09:52 Dose: Aspirin (Ecotrin) 325 mg PO BID [facility] Last Admin: 06/17/19 08:00 Dose: 325 mg Admin: 06/16/19 20:52 Dose: 325 mg Admin: 06/16/19 08:46 Dose: 325 mg Admin: 06/15/19 20:37 Dose: 325 mg Admin: 06/15/19 08:49 Dose: 325 mg Calcium Carbonate (Calcium Carbonate/Vitamin D 600 Mg-200 Unit) 2 tab PO BIDMEALS [facility] Last Admin: 06/17/19 06:44 Dose: 2 tab Admin: 06/16/19 16:10 Dose: 2 tab Admin: 06/16/19 06:34 Dose: 2 tab Admin: 06/15/19 16:49 Dose: 2 tab Admin: 06/15/19 06:39 Dose: 2 tab Admin: 06/14/19 18:13 Dose: Not Given Clopidogrel Bisulfate (Plavix) 75 mg PO DAILY [facility] Last Admin: 06/17/19 08:00 Dose: 75 mg Admin: 06/16/19 08:47 Dose: 75 mg Admin: 06/15/19 08:56 Dose: 75 mg Cyclobenzaprine HCl (Flexeril) 5 mg PO TID PRN PRN Reason: muscle spasms Last Admin: 06/17/19 13:36 Dose: 5 mg Admin: 06/14/19 06:05 Dose: 5 mg Admin: 06/13/19 23:51 Dose: 5 mg Admin: 06/13/19 16:13 Dose: 5 mg Admin: 06/13/19 08:03 Dose: 5 mg Docusate Sodium (Colace) 100 mg PO BID PRN PRN Reason: Constipation Last Admin: 06/15/19 05:41 Dose: 100 mg Famotidine (Pepcid) 20 mg PO BEDTIME [facility] Last Admin: 06/16/19 20:52 Dose: 20 mg Admin: 06/15/19 20:36 Dose: 20 mg Admin: 06/14/19 21:13 Dose: 20 mg Admin: 06/13/19 20:13 Dose: 20 mg Guaifenesin (Mucinex) 600 mg PO TID [facility] Last Admin: 06/17/19 08:00 Dose: 600 mg Admin: 06/16/19 20:52 Dose: 600 mg Admin: 06/16/19 16:10 Dose: 600 mg Admin: 06/16/19 08:47 Dose: 600 mg Admin: 06/15/19 20:37 Dose: 600 mg Admin: 06/15/19 16:49 Dose: 600 mg Hydrochlorothiazide (Hydrochlorothiazide) 25 mg PO DAILY [facility] Last Admin: 06/17/19 08:00 Dose: 25 mg Admin: 06/16/19 08:46 Dose: 25 mg Admin: 06/15/19 08:50 Dose: 25 mg Hydromorphone HCl (Dilaudid) 0.25 mg IVPUSH Q2H PRN PRN Reason: Pain Last Admin: 06/13/19 04:08 Dose: 0.25 mg Latanoprost (Xalatan 0.005% Ophth Soln) 0 ml EYEBOTH BEDTIME [facility] Last Admin: 06/16/19 20:51 Dose: 1 drop Admin: 06/15/19 20:36 Dose: 1 drop Admin: 06/14/19 21:13 Dose: 1 drop Admin: 06/13/19 20:16 Dose: 1 drop Magnesium Oxide (Magnesium Oxide) 400 mg PO DAILY [facility] Last Admin: 06/17/19 08:00 Dose: 400 mg Admin: 06/16/19 08:47 Dose: 400 mg Admin: 06/15/19 08:50 Dose: 400 mg Fluticasone Propionate [Flovent] Ptom 1 puff INH BID [facility] Last Admin: 06/17/19 08:08 Dose: 1 puff Admin: 06/16/19 20:14 Dose: 1 puff Admin: 06/16/19 09:06 Dose: 1 puff Admin: 06/15/19 21:06 Dose: 1 puff Admin: 06/15/19 11:31 Dose: 1 puff Admin: 06/14/19 21:00 Dose: 1 puff Admin: 06/14/19 08:29 Dose: 1 puff Admin: 06/13/19 20:50 Dose: 1 puff Admin: 06/13/19 09:28 Dose: 1 puff Salmeterol Xinafoate (50 Mcg Ptom) 1 puff INH BID [facility] Last Admin: 06/17/19 08:08 Dose: 1 puff Admin: 06/16/19 20:14 Dose: 1 puff Admin: 06/16/19 09:06 Dose: 1 puff Admin: 06/15/19 21:06 Dose: 1 puff Admin: 06/15/19 11:31 Dose: 1 puff Admin: 06/14/19 21:00 Dose: 1 puff Admin: 06/14/19 08:29 Dose: 1 puff Admin: 06/13/19 20:50 Dose: 1 puff Admin: 06/13/19 09:28 Dose: 1 puff Ondansetron HCl (Zofran) 4 mg IVPUSH Q6H PRN PRN Reason: Nausea/Vomiting Last Admin: 06/13/19 12:34 Dose: 4 mg Oxycodone/Acetaminophen (Percocet 325-5 Mg) 1 tab PO Q4H PRN PRN Reason: Pain (moderate 4-6) Last Admin: 06/13/19 11:33 Dose: 1 tab Admin: 06/13/19 07:11 Dose: 1 tab Polyethylene Glycol (Miralax) 17 gm PO DAILY [facility] Last Admin: 06/17/19 08:00 Dose: 17 gm Admin: 06/16/19 08:35 Dose: Not Given Admin: 06/15/19 08:50 Dose: 17 gm Admin: 06/14/19 09:52 Dose: Admin: 06/13/19 08:04 Dose: 17 gm Potassium Chloride (Klor-Con 10) 30 meq PO DAILY [facility] Last Admin: 06/17/19 08:00 Dose: 30 meq Admin: 06/16/19 08:47 Dose: 30 meq Admin: 06/15/19 08:50 Dose: 30 meq Rosuvastatin Calcium (Crestor) 10 mg PO BEDTIME [facility] Last Admin: 06/16/19 20:52 Dose: 10 mg Admin: 06/15/19 20:37 Dose: 10 mg Admin: 06/14/19 21:13 Dose: 10 mg Admin: 06/13/19 20:13 Dose: 10 mg - Assessment Assessment (Free Text/Narrative):: POD#3 - right JAYSHREE - Plan Plan (Free Text/Narrative):: 1. Hgb 10.6. 2. ASA PO BID, frequent mobility, TEDs, SCDs. 3. Suspect d/c to NH for continued therapy vs. home with 24 hour care and Home Health services. 4. Further orders per Hospitalist service. The pt was evaluated by Dr. Grace today.
[2019-06-17] MEDS: Rosuvastatin 10 MG Tab PO SCH (21:57)
[2019-06-17] MEDS: Famotidine 20 MG Tab PO SCH (21:57)
[2019-06-17] MEDS: Latanoprost 0.005% Ophth Soln 2.5 ML Bottle EYEBOTH SCH (21:58)
[2019-06-18] MEDS: Albuterol/Ipratropium 3.0-0.5 MG/3 ML Neb Soln NEB SCH ×2 (02:47→08:25)
[2019-06-18] MEDS: Cyclobenzaprine 10 MG Tab PO PRN (05:16)
[2019-06-18] MEDS: Calcium Carbonate/Vitamin D3 600 MG-200 Units Tab PO SCH (06:30)
[2019-06-18] MEDS: FLUTICASONE PROPIONATE INH SCH (08:25)
[2019-06-18] MEDS: SALMETEROL XINAFOATE 50 MCG INH SCH (08:25)
[2019-06-18] MEDS: amLODIPine 5 MG Tab PO SCH (09:21)
[2019-06-18] MEDS: Hydrochlorothiazide 25 MG Tab PO SCH (09:24)
[2019-06-18] MEDS: Magnesium Oxide 400 MG Tab PO SCH (09:24)
[2019-06-18] MEDS: Potassium Chloride 10 MEQ Tab.ER PO SCH (09:25)
[2019-06-18] MEDS: guaiFENesin 600 MG Tab.ER PO SCH (09:26)
[2019-06-18] MEDS: Clopidogrel 75 MG Tab PO SCH (09:26)
[2019-06-18] MEDS: Acetaminophen 325 MG Tab PO PRN (09:26)
[2019-06-18] MEDS: Aspirin 325 MG Tab.EC PO SCH (09:26)
[2019-06-18] MEDS: Polyethylene Glycol 3350 Powder 17 GM Packet PO SCH (09:28)
--- NOTE | 2019-06-18 11:28 | PCM.DCSUM1 ---
Discharge Summary - Hospital Course HPI Initial Comments: Sherri Adkins is an 84 yo female who presented to ED on 06/12/2019 via [facility] after a fall at home. Reports she was folding close and simply lost her balance resulting in a fall on her left side. After a fall she was unable to bear weight on the right side. She reports she did hit her head on the dresser and does have a small hematoma to the right scalp. She is on Plavix daily due to PVD and a previous vascular surgery. She also recently underwent right fifth digit tendon repair with Dr. Strauss at [facility] in [place]. He has resulted in her right hand hand being in an immobilizer. She reports she is supposed to wear this for 3 weeks. She is right-hand dominant. In route paramedics gave her Zofran and a pain medication. In the ED temp was 36.7. Respirations 15. Blood pressure 138/65. Pulse ox 92% . Twelve-lead EKG is obtained showing a sinus rhythm 85 bpm with enlarged P waves and early R wave transition. Frequent PACs. There is also a diffuse early repolarization pattern throughout all leads. CBC is obtained and is unremarkable with a WBC of 8.72. Hemoglobin 12.7. Hematocrit 38.9. Blood sugar 324,000. PT is 10.9. INR 1.0. Magnesium is 2.1. APTT is 27. Sodium is slightly low at 134. Potassium 3.4. Chloride 97. Carbon oxide 27. Anion gap is 13.7. BUN is 18. Creatinine 0.9. Glucose is high at 149. Calcium 9.2. Bilirubin 0.4. AST is 34, ALT 31, alk phos 112. proBNP is 297. Albumin is slightly low at 3.3. UA is negative however few mucus is noted. She started on D5 NS and given Dilaudid for pain. Head CT is obtained which shows mild senescent change and nothing acute. Femur x-ray is obtained and shows a mildly displaced subcapital fracture within the right hip. Vascular calcification is also noted. Bony structures are osteopenic. Pelvic x-rays obtained showing a displaced right hip fracture and other nonacute findings. X- rays obtained showing tortuous thoracic aorta and right chest skinfold. There is blunting of the left lateral costophrenic angle which is believed to be chronic. Carotid artery calcification and scoliosis of the spine are noted. Degenerative change of the right glenohumeral joint. No acute parenchymal change. Nothing acute is suspected. "A, orthopedic surgeon, is contacted and reports because the patient is on Plavix she should be admitted to the hospital and he will plan on surgery Monday around noon after she has been off of her Plavix for [address] Rivera, hospitalist, is then contacted who agrees to accept the patient. He carries a history of HLD, HTN, PVD, s/p left lower extremity femoral artery grafting, COPD, osteopenia, osteoporosis, s/p right fifth digit extensor tendon repair with remaining right upper extremity splinting, glaucoma, hx/o lung cancer. She subsequently admitted to the medical floor on telemetry plan for surgery Monday (06/14/19) around noon. Diagnosis: Stroke: No - Discharge Data Discharge Date: 06/18/19 (Admit date: 06/12/19) Discharge Disposition: DC/Tfer to SNF 03 Condition: Good - Referral to Home Health Primary Care Physician: Macey Orta MD - Discharge Diagnosis/Problem(s) (1) Osteopenia SNOMED Code(s): 299558884 ICD Code: M85.80 - OTH DISRD OF BONE DENSITY AND STRUCTURE, UNSPECIFIED SITE Status: Chronic Priority: Medium Qualifiers: Osteopenia location: unspecified Qualified Code(s): M85.80 - Other specified disorders of bone density and structure, unspecified site (2) HLD (hyperlipidemia) SNOMED Code(s): 38762061 ICD Code: E78.5 - HYPERLIPIDEMIA, UNSPECIFIED Status: Chronic Priority: Low Qualifiers: Hyperlipidemia type: unspecified Qualified Code(s): E78.5 - Hyperlipidemia , unspecified (3) HTN (hypertension) SNOMED Code(s): 50034825 ICD Code: I10 - ESSENTIAL (PRIMARY) HYPERTENSION Status: Chronic Priority : Medium Qualifiers: Hypertension type: unspecified Qualified Code(s): I10 - Essential (primary ) hypertension (4) Osteoporosis SNOMED Code(s): 98337345 ICD Code: M81.0 - AGE-RELATED OSTEOPOROSIS W/O CURRENT PATHOLOGICAL FRACTURE Status: Chronic Priority: Medium (5) History of lung cancer SNOMED Code(s): 293546872, 821357022 ICD Code: Z85.118 - PERSONAL HISTORY OF MALIGNANT NEOPLASM OF BRONCHUS AND LUNG Status: Chronic Priority: Medium (6) History of hand surgery SNOMED Code(s): 770094720, 775068013 ICD Code: Z98.890 - OTHER SPECIFIED POSTPROCEDURAL STATES Status: Chronic Priority: Medium (7) Immobilizing cast in place SNOMED Code(s): 461123539 ICD Code: Z97.8 - PRESENCE OF OTHER SPECIFIED DEVICES Status: Chronic Priority: Medium (8) COPD not affecting current episode of care SNOMED Code(s): 86872206 ICD Code: J44.9 - CHRONIC OBSTRUCTIVE PULMONARY DISEASE, UNSPECIFIED Status : Chronic Priority: Medium (9) Fracture of hip, right, closed SNOMED Code(s): 964925184 ICD Code: S72.001A - FRACTURE OF UNSP PART OF NECK OF RIGHT FEMUR, INIT Status: Acute Priority: High Qualifiers: Encounter type: initial encounter Qualified Code(s): S72.001A - Fracture of unspecified part of neck of right femur, initial encounter for closed fracture (10) Minor closed head injury SNOMED Code(s): 479213026, 892398088120 ICD Code: S00.90XA - UNSP SUPERFICIAL INJURY OF UNSP PART OF HEAD, INIT ENCNTR Status: Acute Priority: High (11) Peripheral vascular disease SNOMED Code(s): 471117792 ICD Code: I73.9 - PERIPHERAL VASCULAR DISEASE, UNSPECIFIED Status: Chronic Priority: Medium (12) Hypomagnesemia SNOMED Code(s): 098171651 ICD Code: E83.42 - HYPOMAGNESEMIA Status: Resolved Priority: High (13) Fall SNOMED Code(s): 5161059, 896412919 ICD Code: W19.XXXA - UNSPECIFIED FALL, INITIAL ENCOUNTER Status: Acute Priority: High Qualifiers: Encounter type: initial encounter Qualified Code(s): W19.XXXA - Unspecified fall, initial encounter (14) Hypokalemia SNOMED Code(s): 29758042 ICD Code: E87.6 - HYPOKALEMIA Status: Resolved Priority: High (15) S/P total hip arthroplasty SNOMED Code(s): 818027250524, 479337704078 ICD Code: Z96.649 - PRESENCE OF UNSPECIFIED ARTIFICIAL HIP JOINT Status: Acute Priority: High Qualifiers: Laterality: right Qualified Code(s): Z96.641 - Presence of right artificial hip joint - Patient Summary/Data Consults: Consultations 06/13/19 06:47 Consult to Case Management/Bridge Toll Collector [CONS] Routine Consult to Spiritual Care [CONS] Routine OT Evaluation and Treatment [CONS] Routine PT Evaluation and Treatment [CONS] Routine 06/13/19 06:51 Consult to Physician [CONS] Routine Labs Pending at D/C: None Recommended Follow-up Testing/Procedures: Follow-up with PCP within 5-7 days of discharge, sooner if needed. Follow-up with Dr. Grace's office as scheduled. Hospital Course: Sherri was admitted to the floor after a fall at home resulting in right hip fracture. She already had immobilizer on her right hand after a right fifth digit extensor tendon repair and this was stable. Because she was on Plavix decision was made to postpone surgery for 2 days and hold Plavix to decrease risk of bleeding. She underwent surgical fixation on 06/14/2019 with a right total hip arthroplasty by Dr. Grace. Mendez catheter placed in ED was removed the next day. Postsurgically pain was controlled with as needed Flexeril and Tylenol. Electrolytes were supplemented. Labs and vital signs remained stable. She did work with PT/OT who recommended SNF placement. She was started on 325 mg twice daily aspirin for DVT prophylaxis. She was prescribed 650 mg p.o. every 4 hours acetaminophen for pain, 5 mg p.o. 3 times daily as needed Flexeril for muscle spasms, 100 mg p.o. twice daily as needed Colace for constipation and 17 g p.o. daily as needed MiraLAX for constipation. Home medications were otherwise resumed although the patient was on 81 mg daily ASA and this was held and should resume after she finishes her DVT prophylaxis dosing. She was weaned off oxygen. She was able to ambulate short distances utilizing a walker. She ultimately was accepted at [facility] for rehab stay. She should continue working with physical and Occupational Therapy while there. She was instructed to continue to utilize her I-S until she is more mobile. She should continue to follow total hip precautions elevate her extremity, apply ice to wound site, and she may retain full weightbearing status. She was discharged today. - Patient Instructions Diet: Usual Diet as Tolerated Activity: Apply Ice, As Tolerated, Elevate Extremity, Full Weight Bearing Activity, Other: Follow the total hip precautions. Driving: Do Not Drive Showering/Bathing: May Shower Wound/Incision Care: Keep Operative Site/Wound Site Clean and Dry, Do NOT Change Dressing Notify Provider of: Fever, Increased Pain, Swelling and Redness, Drainage, Nausea and/or Vomiting Other/Special Instructions: Please get up and moving around EVERY HOUR while awake. This helps to prevent blood clots. Please use your walker and have help with mobility as needed. Take a short walk every hour while awake. Please take 325mg Aspirin TWICE daily. The aspirin is being used for blood clot prevention and not for pain management so please do not miss a dose of the medication. You could use a medication like Pepcid or Tagamet and a medication like Prilosec or Nexium to protect your stomach while you are using the aspirin. Please complete the exercises that you learned during the Hospital stay. Schedule for physical therapy. Follow the total hip precautions. Use the pain medication as needed. The medication may cause drowsiness and constipation. Contact your primary care provider for instructions if you are constipated. You may use a stool softener like docusate sodium or Colace 100mg twice daily and/or a laxative like Miralax daily for constipation. Increase your water and fiber intake while you are using the pain medication. Discontinue use of the pain medication as soon as able. Please do not use other medications that may cause drowsiness (other pain medications, anxiety pills, cold medications, sleeping pills, etc) while using the prescription pain medication. Do not use alcohol while using the pain medication. You may use acetaminophen or Tylenol for pain management, however, please ensure you are not using over 4000 mg or 4 grams of acetaminophen per day from all sources. Your pain medication has 325mg of acetaminophen per tablet. At this time, please do not use ibuprofen (Motrin, Advil) or naproxen (Aleve) for pain management as you are using the aspirin. Wear the ARMIN hose during the day and you may remove these at night. Elevate the limb to decrease swelling. Place ice to the area often. Place a towel between your skin and the blue pad. Use the incentive spirometer often. Take deep breaths throughout the day. Please keep the dressing in place until follow-up. Notify the Clinic if the dressing becomes saturated. Increase your protein intake while you are healing. If you have diabetes, please closely monitor your blood sugars and notify your primary care provider with abnormal values. Elevated blood sugars increases the risk of infection. Call the Clinic with questions or concerns - [phone]. Follow- up with primary care provider jayden 5-7 days of discharge, sooner if need. Should symtpoms return or worsen, follow-up with primary care provider or return to the Emergency Room. - Discharge Plan *PRESCRIPTION DRUG MONITORING PROGRAM REVIEWED*: Not Applicable *COPY OF PRESCRIPTION DRUG MONITORING REPORT IN PATIENT BRI: Not Applicable Prescriptions/Med Rec: Acetaminophen [Tylenol] 650 mg PO Q4H PRN #90 tablet PRN Reason: Pain (Mild 1-3)/fever Aspirin [Ecotrin EC] 325 mg PO BID #62 tab.ec Cyclobenzaprine [Flexeril] 5 mg PO TID PRN #18 tablet PRN Reason: muscle spasms Docusate Sodium [Colace] 100 mg PO BID PRN #24 cap PRN Reason: Constipation polyethylene glycoL 3350 [MiraLAX] 17 gm PO DAILY PRN #10 packet PRN Reason: Constipation Home Medications: Home Meds Calcium Carbonate/Vitamin D3 [Calcium 600 + Vit D 200] 2 tab PO BID 06/13/19 [ History] Clopidogrel [Plavix] 75 mg PO DAILY 06/13/19 [History] Famotidine 20 mg PO BEDTIME 06/13/19 [History] Fluticasone Propionate [Flovent HFA 110 MCG] 1 puff INH BID 06/13/19 [History] Latanoprost [Xalatan] 1 drop EYEBOTH BEDTIME 06/13/19 [History] Magnesium Oxide 400 mg PO DAILY 06/13/19 [History] Potassium Chloride 30 meq PO DAILY 06/13/19 [History] Rosuvastatin [Crestor] 10 mg PO BEDTIME 06/13/19 [History] Salmeterol Xinafoate [Serevent Diskus] 1 blister INH BID 06/13/19 [History] Triamcinolone Acetonide [Triamcinolone Acetonide 0.1% Crm] 1 dose TOP BID PRN [History] amLODIPine [Norvasc] 7.5 mg PO DAILY 06/13/19 [History] guaiFENesin [Mucinex] 1,200 mg PO BID PRN 06/13/19 [History] hydroCHLOROthiazide [Hydrochlorothiazide] 25 mg PO DAILY 06/13/19 [History] Acetaminophen [Tylenol] 650 mg PO Q4H PRN #90 tablet 06/18/19 [Rx] Aspirin [Ecotrin EC] 325 mg PO BID #62 tab.ec 06/18/19 [Rx] Cyclobenzaprine [Flexeril] 5 mg PO TID PRN #18 tablet 06/18/19 [Rx] Docusate Sodium [Colace] 100 mg PO BID PRN #24 cap 06/18/19 [Rx] polyethylene glycoL 3350 [MiraLAX] 17 gm PO DAILY PRN #10 packet 06/18/19 [Rx] Oxygen Therapy Mode: Room Air Forms: ED Department Discharge Referrals: Cherri Alexandra PA-C [Physician Wool Batting Worker] - (Please follow up with Cherri Alexandra PA-C on the following dates June 21 at 12:15 and June 28 at 11:00.) PCP,None [Ordering Only Provider] - - Discharge Summary/Plan Comment DC Time >30 min.: Yes (45 mins ) - General Info Date of Service: 06/18/19 Admission Dx/Problem (Free Text: Admission Diagnosis/Problem Admission Diagnosis/Problem Hip fracture requiring operative repair Functional Status: Reports: Pain Controlled, Tolerating Diet, Ambulating, Urinating, Incentive Spirometry, Other (acapella ). Denies: New Symptoms - Review of Systems General: Reports: Weakness. Denies: Fever, Chills HEENT: Reports: No Symptoms. Denies: Headaches, Sore Throat Pulmonary: Reports: No Symptoms, Cough (Chronic ). Denies: Shortness of Breath , Pleuritic Chest Pain, Sputum, Wheezing Cardiovascular: Reports: No Symptoms. Denies: Chest Pain, Palpitations, Dyspnea on Exertion Gastrointestinal: Reports: No Symptoms. Denies: Abdominal Pain, Constipation, Diarrhea, Nausea, Vomiting Genitourinary: Reports: No Symptoms. Denies: Pain Musculoskeletal: Reports: Leg Pain Skin: Reports: No Symptoms. Denies: Cyanosis Neurological: Reports: Difficulty Walking, Weakness, Gait Disturbance Psychiatric: Reports: No Symptoms - Patient Data Vitals - Most Recent: Last Vital Signs Temp 97.5 F 06/18/19 08:42 Pulse 77 06/18/19 08:22 Resp 16 06/18/19 08:22 BP 126/55 L 06/18/19 09:21 Pulse Ox 94 L 06/18/19 08:26 Weight - Most Recent: 109 lb 12.8 oz I&O - Last 24 hours: Intake & Output 06/17/19 06/18/19 06/18/19 22:59 06:59 14:59 Intake Total 1060 800 120 Output Total 950 600 Balance 110 200 120 Med Orders - Current: Current Medications Acetaminophen (Tylenol) 650 mg PO Q4H PRN PRN Reason: Pain (Mild 1-3)/fever Last Admin: 06/18/19 09:26 Dose: 650 mg Albuterol/Ipratropium (Duoneb 3.0-0.5 Mg/3 Ml) 3 ml NEB Q6HRRT [facility] Last Admin: 06/18/19 08:25 Dose: 3 ml Amlodipine Besylate (Norvasc) 7.5 mg PO DAILY [facility] Last Admin: 06/18/19 09:21 Dose: 7.5 mg Aspirin (Ecotrin) 325 mg PO BID [facility] Last Admin: 06/18/19 09:26 Dose: 325 mg Calcium Carbonate (Calcium Carbonate/Vitamin D 600 Mg-200 Unit) 2 tab PO BIDMEALS [facility] Last Admin: 06/18/19 06:30 Dose: 2 tab Clopidogrel Bisulfate (Plavix) 75 mg PO DAILY [facility] Last Admin: 06/18/19 09:26 Dose: 75 mg Cyclobenzaprine HCl (Flexeril) 5 mg PO TID PRN PRN Reason: muscle spasms Last Admin: 06/18/19 05:16 Dose: 5 mg Docusate Sodium (Colace) 100 mg PO BID PRN PRN Reason: Constipation Last Admin: 06/15/19 05:41 Dose: 100 mg Famotidine (Pepcid) 20 mg PO BEDTIME [facility] Last Admin: 06/17/19 21:57 Dose: 20 mg Guaifenesin (Mucinex) 600 mg PO TID [facility] Last Admin: 06/18/19 09:26 Dose: 600 mg Hydrochlorothiazide (Hydrochlorothiazide) 25 mg PO DAILY [facility] Last Admin: 06/18/19 09:24 Dose: 25 mg Hydromorphone HCl (Dilaudid) 0.25 mg IVPUSH Q2H PRN PRN Reason: Pain Last Admin: 02/13/20 04:08 Dose: 0.25 mg Latanoprost (Xalatan 0.005% Ophth Soln) 0 ml EYEBOTH BEDTIME [facility] Last Admin: 06/17/19 21:58 Dose: 1 drop Magnesium Oxide (Magnesium Oxide) 400 mg PO DAILY [facility] Last Admin: 06/18/19 09:24 Dose: 400 mg Fluticasone Propionate [Flovent] Ptom 1 puff INH BID [facility] Last Admin: 06/18/19 08:25 Dose: 1 puff Salmeterol Xinafoate (50 Mcg Ptom) 1 puff INH BID [facility] Last Admin: 06/18/19 08:25 Dose: 1 puff Ondansetron HCl (Zofran) 4 mg IVPUSH Q6H PRN PRN Reason: Nausea/Vomiting Last Admin: 06/13/19 12:34 Dose: 4 mg Oxycodone/Acetaminophen (Percocet 325-5 Mg) 1 tab PO Q4H PRN PRN Reason: Pain (moderate 4-6) Last Admin: 06/13/19 11:33 Dose: 1 tab Polyethylene Glycol (Miralax) 17 gm PO DAILY [facility] Last Admin: 06/18/19 09:28 Dose: Not Given Potassium Chloride (Klor-Con 10) 30 meq PO DAILY [facility] Last Admin: 06/18/19 09:25 Dose: 30 meq Rosuvastatin Calcium (Crestor) 10 mg PO BEDTIME [facility] Last Admin: 06/17/19 21:57 Dose: 10 mg Discontinued Medications Albuterol (Proventil Neb Soln) 2.5 mg NEB ONETIME ONE Stop: 06/14/19 10:31 Last Admin: 06/14/19 10:57 Dose: 2.5 mg Albuterol (Proventil Neb Soln) 2.5 mg NEB Q30M PRN PRN Reason: Wheezing/ low Saturation Stop: 06/14/19 14:46 Last Admin: 06/14/19 15:25 Dose: 2.5 mg Bupivacaine HCl (Sensorcaine-Mpf 0.25%) Confirm Administered Dose 30 ml .ROUTE .STK-MED ONE Stop: 06/14/19 11:27 Last Admin: 06/14/19 14:03 Dose: 20 ml Cefazolin Sodium (Ancef) Confirm Administered Dose 2 gm .ROUTE .STK-MED ONE Stop: 06/14/19 11:27 Last Admin: 06/14/19 13:55 Dose: 2 gm Cefazolin Sodium (Ancef) Confirm Administered Dose 2 gm .ROUTE .STK-MED ONE Stop: 06/14/19 12:54 Morphine Sulfate 8 mg/Epinephrine HCl 0.3 mg/Cefuroxime Sodium 750 mg/Ketorolac Tromethamine 30 mg/Sodium Chloride 7.9 ml 0 mg .XX ASDIRECTED [facility] Stop: 06/14/19 18:00 Last Admin: 06/14/19 13:58 Dose: 788.3 mg Esmolol HCl (Esmolol) Confirm Administered Dose 100 mg .ROUTE .STK-MED ONE Stop: 06/14/19 13:11 Etomidate (Amidate) Confirm Administered Dose 40 mg IVPUSH .STK-MED ONE Stop: 06/14/19 11:55 Fentanyl (Sublimaze) Confirm Administered Dose 100 mcg .ROUTE .STK-MED ONE Stop: 06/14/19 11:54 Fentanyl (Sublimaze) Confirm Administered Dose 250 mcg .ROUTE .STK-MED ONE Stop: 06/14/19 11:56 Fentanyl (Sublimaze) 50 mcg IVPUSH Q5M PRN PRN Reason: Pain Hydromorphone HCl (Dilaudid) 0.25 mg IVPUSH ONETIME ONE Stop: 06/12/19 20:57 Last Admin: 06/12/19 21:06 Dose: 0.25 mg Hydromorphone HCl (Dilaudid) 0.25 mg IVPUSH ONETIME ONE Stop: 06/12/19 21:48 Last Admin: 06/12/19 21:48 Dose: 0.25 mg Hydromorphone HCl (Dilaudid) 0.5 mg IVPUSH Q10M PRN PRN Reason: Pain (severe 7-10) Dextrose/Sodium Chloride (Dextrose 5%-Normal Saline) 1,000 mls @ 150 mls/hr IV ASDIRECTED [facility] Last Admin: 06/12/19 21:38 Dose: 150 mls/hr Potassium Chloride/Dextrose/Sod Cl (D5 1/2 Ns W/ 20 Meq/L Kcl) 1,000 mls @ 100 mls/hr IV ASDIRECTED [facility] Dextrose/Sodium Chloride (Dextrose 5%-Normal Saline) 1,000 mls @ 120 mls/hr IV ASDIRECTED [facility] Last Admin: 06/13/19 00:05 Dose: 120 mls/hr Dextrose/Sodium Chloride (Dextrose 5%-Normal Saline) 1,000 mls @ 100 mls/hr IV ASDIRECTED [facility] Last Admin: 06/14/19 05:59 Dose: 100 mls/hr Magnesium Sulfate 2 gm/ Premix 50 mls @ 25 mls/hr IV ONETIME ONE Stop: 06/13/19 08:52 Last Admin: 06/13/19 07:08 Dose: 25 mls/hr Potassium Chloride 10 meq/ (Premix) 100 mls @ 100 mls/hr IV Q1H [facility] Stop: 06/14/19 12:14 Last Admin: 06/14/19 18:13 Dose: 100 mls/hr Dextrose/Sodium Chloride (Dextrose 5%-Normal Saline) 1,000 mls @ 50 mls/hr IV ASDIRECTED [facility] Lidocaine HCl (Xylocaine-Mpf 1%) Confirm Administered Dose 4 mls @ as directed .ROUTE .STK-MED ONE Stop: 06/14/19 13:28 Dextrose/Sodium Chloride (Dextrose 5%-Normal Saline) 1,000 mls @ 50 mls/hr IV ASDIRECTED [facility] Last Admin: 06/15/19 05:41 Dose: 50 mls/hr Magnesium Sulfate 2 gm/ Premix 50 mls @ 25 mls/hr IV ONETIME ONE Stop: 06/16/19 11:16 Last Admin: 06/16/19 09:30 Dose: 25 mls/hr Iodine (Iodine 2% Mild Tincture) Confirm Administered Dose 30 ml .ROUTE .STK- MED ONE Stop: 06/14/19 11:27 Last Admin: 06/14/19 13:51 Dose: 18 ml Ketamine HCl (Ketalar) Confirm Administered Dose 500 mg .ROUTE .STK-MED ONE Stop: 06/14/19 11:53 Metoclopramide HCl (Reglan) 10 mg IVPUSH ONETIME ONE Stop: 06/13/19 13:09 Last Admin: 06/13/19 13:14 Dose: 10 mg Midazolam HCl (Versed 1 Mg/Ml) Confirm Administered Dose 2 mg .ROUTE .STK-MED ONE Stop: 06/14/19 11:52 Miscellaneous Information (Remove Patch) 0 ea TRDERM ONETIME ONE Stop: 06/16/19 13:16 Last Admin: 06/16/19 12:33 Dose: 1 ea Non-Formulary Medication (Fluticasone Propionate) 1 puff INH BID [facility] Non-Formulary Medication (Salmeterol Xinafoate) 1 blister INH BID [facility] Ondansetron HCl (Zofran) Confirm Administered Dose 4 mg .ROUTE .STK-MED ONE Stop: 06/14/19 13:36 Ondansetron HCl (Zofran) 4 mg IVPUSH ONETIME PRN PRN Reason: Nausea/Vomiting Phenylephrine HCl (Phenylephrine In Ns 100 Mcg/Ml) Confirm Administered Dose 1 mg .ROUTE .STK-MED ONE Stop: 06/14/19 13:10 Phenylephrine HCl (Phenylephrine In Ns 100 Mcg/Ml) Confirm Administered Dose 1 mg .ROUTE .STK-MED ONE Stop: 06/14/19 13:53 Scopolamine (Transderm-Scop) 1.5 mg TOP ONETIME ONE Stop: 06/13/19 13:08 Last Admin: 06/13/19 13:18 Dose: 1.5 mg Succinylcholine Chloride (Succinylcholine In Ns Pf) Confirm Administered Dose 100 mg .ROUTE .STK-MED ONE Stop: 06/14/19 13:28 Tranexamic Acid (Cyklokapron) Confirm Administered Dose 1,000 mg .ROUTE .STK- MED ONE Stop: 06/14/19 11:26 Last Admin: 06/14/19 13:58 Dose: 1,000 mg Vancomycin HCl (Vancomycin) Confirm Administered Dose 1 gm .ROUTE .STK-MED ONE Stop: 06/14/19 11:27 Last Admin: 06/14/19 13:58 Dose: 1 gm - Exam Quality Assessment: Reports: DVT Prophylaxis. Denies: Supplemental Oxygen, Urine Catheter General: Reports: Alert, Oriented, Cooperative, No Acute Distress HEENT: Reports: Pupils Equal, Pupils Reactive, Mucous Membr. Moist/Browning Neck: Reports: Supple, Trachea Midline Lungs: Reports: Clear to Auscultation, Normal Respiratory Effort Cardiovascular: Reports: Regular Rate, Regular Rhythm GI/Abdominal Exam: Normal Bowel Sounds, Soft, Non-Tender, No Distention (Female) Exam: Deferred Rectal (Female) Exam: Deferred Back Exam: Reports: Normal Inspection, Full Range of Motion Extremities: Normal Capillary Refill, Leg Pain, Limited Range of Motion, Other ( Bandage in place on right leg. Cooling pack in place. Immobilizer on right hand. ) Skin: Reports: Warm, Dry, Intact Wound/Incisions: Reports: Dressing Dry and Intact Neurological: Reports: No New Focal Deficit Psy/Mental Status: Reports: Alert, Normal Affect, Normal Mood
--- NOTE | 2019-06-20 12:48 | PCM.OPNOTE ---
- General Post-Op/Procedure Note Date of Surgery/Procedure: 06/14/19 Operative Procedure(s): right total hip arthroplasty Pre Op Diagnosis: displaced right femoral neck fracture Post-Op Diagnosis: Same Anesthesia Technique: Local, MAC, Spinal Primary Surgeon: Elias Grace Anesthesia Provider: Earle Dave [employer] Services Manager: Margareth Steen EBL in mLs: 300 Complications: None Condition: Good Free Text/Narrative:: 52 cup 28+4 3 stem
--- NOTE | 2019-06-20 13:11 | CONS ---
CONSULTING PHYSICIAN: Elias Grace MD DATE OF CONSULTATION: 06/13/2019 HISTORY OF PRESENT ILLNESS: This is an 84-year-old female who comes in with right hip pain. The patient was at home when she fell and had immediate right hip pain. She was able to contact her family, who then took her to the emergency department where she was found to have a right hip fracture. The patient is on Plavix daily due to peripheral vascular disease. She denies any previous pain or injury to the right hip. She is very active. She continues to work outside the home at the [employer] 40 hours a week. She otherwise has not ever used any ambulatory assistive devices. She otherwise denies any other injury, pain, or problems at this time. OBJECTIVE: GENERAL: Afebrile. Vital signs stable. GENERAL: The patient is alert. She is in mild distress secondary to right hip pain. MUSCULOSKELETAL: She is able to dorsiflex and plantar flex her ankle. She is able to move all toes. She has no tenderness to palpation about the right knee. Pelvis is stable to anterior and posterior compression. She is otherwise neurovascularly intact, L2 through S1, with 2+ distal pulses. RADIOGRAPHS: Reviewed showing a displaced subcapital right femoral neck fracture. ASSESSMENT: Displaced right subcapital femoral neck fracture. PLAN: At this time, I did discuss with the patient secondary to her age and activity level, and especially her activity level, I would recommend right total hip arthroplasty as she is very active and continues to ambulate significant amounts of distances and works outside the home. The risks, benefits, complications, and alternatives were discussed with her at today's visit. We will plan on proceeding with right total hip arthroplasty. Her family will be contacted as well. MMODAL /[id number]
--- NOTE | 2019-06-20 13:24 | OR ---
DATE OF OPERATION: 06/14/2019 SURGEON: Elias Grace MD OPERATION PERFORMED: Right total hip arthroplasty. PREOPERATIVE DIAGNOSIS: Displaced right femoral neck fracture. POSTOPERATIVE DIAGNOSIS: Displaced right femoral neck fracture. ANESTHESIA: Local MAC with spinal. ANESTHESIA PROVIDER: Earle Dave. INVESTIGATIVE ASSISTANT: Margareth Steen LPN. ESTIMATED BLOOD LOSS: 300 mL. COMPLICATIONS: None. CONDITION: Stable. IMPLANT: 1. Tomas size 52 mm solid Tritanium II acetabular cup. 2. [place] size 28 +4/42 MDM components. 3. [place] size 3 Accolade II stem. DESCRIPTION OF PROCEDURE: The patient was identified in the preoperative holding area where the proper site was marked and identified by the surgeon. The patient was taken back to the operative theater where, after adequate anesthesia, the patient was placed in a left lateral decubitus position. An axillary roll was placed. Pegs were then placed and were well padded. The patient's gluteal fold was parallel to the floor. The right hip was then sterilely prepped and draped in the usual sterile fashion. OR time-out was performed. The patient received 2 g of IV Ancef. A standard posterior incision was made centered over the greater trochanter. This was taken down to the IT band and gluteal fascia which was incised along the incisional length. Charnley retractor was then placed. At this time, capsulotomy was performed from the piriformis down to the level of the lesser trochanter, and the hip fracture was then identified. A corkscrew was then utilized to remove the femoral head fragment, and a clean up cut was done on the femoral neck. Attention was turned to the acetabulum. Anterior and posterior acetabular retractors were placed. Circumferential removal of the labrum as well as pulvinar was done. I started with a 48 reamer. I was then able to ream up to a 52 which had adequate purchase. A 52 mm Tritanium II acetabular cup was then impacted in place in roughly 45 to 50 degrees of abduction and 20 to 30 degrees of anteversion. The MDM liner was then impacted into place, and attention was turned to the femur. Box chisel was used out laterally. Starter awl was placed down the canal. Starting with the 0 broach, I was able to broach up to a size 3 which was found to be rotationally and vertically stable. Trial implants were then placed. I started with a +0. This was found to be a little bit short, so I trialed the +4 and was found to have adequate anglican of leg lengths, and it was stable throughout range of motion. Bone hook was used to dislocate the trial implants. The implants were then constructed on the back table. Size 3 Accolade II stem was impacted into place, and the 28/48 MDM components with +4 were impacted onto the stem. The hip was then relocated. A #5 Ethibond suture was used for closure of the short external rotators and capsule. 1 L of dilute Betadine solution was irrigated through the hip along with 3 L of pulse lavage irrigation with Ancef. Topical tranexamic acid and vancomycin powder were applied. 0.25% Marcaine was injected in the subcutaneous layers. A #2 barbed suture was used for closure of the IT band and gluteal fascia. 2-0 Vicryl was used subcutaneously, and Prineo was used for the skin. The patient tolerated the procedure well and was sent to the PACU in stable condition. MMODAL /[id number]
== END 2019-06-18 13:45 | DRG 470 ==
LOC: JD.ED 20:44 → JD.MS 22:20
PROVIDERS: ADMIT Family Medicine; ATTEND Family Medicine
PROC: 0SR90JZ Replacement of Right Hip Joint with Synthetic Substitute, Open Approach (ICD-10-PCS; principal; 2019-06-14)
DX: S72.001A Fracture of unspecified part of neck of right femur, initial encounter for closed fracture (principal); S72.011A Unspecified intracapsular fracture of right femur, initial encounter for closed fracture; S00.03XA Contusion of scalp, initial encounter; Y92.009 Unspecified place in unspecified non-institutional (private) residence as the place of occurrence of the external cause; I73.9 Peripheral vascular disease, unspecified; E78.5 Hyperlipidemia, unspecified; E78.00 Pure hypercholesterolemia, unspecified; I10 Essential (primary) hypertension; H54.7 Unspecified visual loss; J44.9 Chronic obstructive pulmonary disease, unspecified; E83.42 Hypomagnesemia; M81.0 Age-related osteoporosis without current pathological fracture; Z90.722 Acquired absence of ovaries, bilateral; E87.6 Hypokalemia; K21.9 Gastro-esophageal reflux disease without esophagitis; M85.80 Other specified disorders of bone density and structure, unspecified site; H40.9 Unspecified glaucoma; W18.39XA Other fall on same level, initial encounter; Z85.118 Personal history of other malignant neoplasm of bronchus and lung; Z79.82 Long term (current) use of aspirin; Z90.710 Acquired absence of both cervix and uterus; Z87.891 Personal history of nicotine dependence; Z90.721 Acquired absence of ovaries, unilateral; Z90.79 Acquired absence of other genital organ(s); Z88.8 Allergy status to other drugs, medicaments and biological substances; Z98.42 Cataract extraction status, left eye; Z98.41 Cataract extraction status, right eye; Y93.89 Activity, other specified; Y92.003 Bedroom of unspecified non-institutional (private) residence as the place of occurrence of the external cause; Z79.02 Long term (current) use of antithrombotics/antiplatelets
CPT/HCPCS: 36415; 51702; 70450; 71045; 72170; 73552; 80053; 81001; 83735; 83880; 85025; 85610; 85730; 93005; 96361; 96374; 96376; 99285; J1170 ×2; J7042; 01214; 73501-26-RT; 73501-RT; 86850; 86900; 86901; 93010; 94640; 94667; 94668; 94761; 97110-GO; 97110-GP; 97116-GP; 97162-GP; 97165-GO; 97535-GO; A9270-GY; C1776; J0171; J0330; J0690; J0697; J1885; J2001; J2250; J2270; J2370; J2405; J2765; J3010; J3370; J3475; J3480; J3490; J7620-GY

== ENCOUNTER 2021-01-27 16:49 | Emergency (ER) | payer MEDICARE, OTHER ==
[2021-01-27] MEDS ORDERED: Fluorescein 1 MG Ophth Strip EYELF ONE (17:42)
[2021-01-27] MEDS ORDERED: Proparacaine 0.5% Ophth Soln 15 ML Bottle EYELF ONE (17:45)
--- NOTE | 2021-01-27 18:18 | EDM.PDOC ---
ED HPI GENERAL MEDICAL PROBLEM - General Chief Complaint: Eye Problems Stated Complaint: EYE INJURY Time Seen by Provider: 01/27/21 17:10 Source of Information: Reports: Patient, Family History Limitations: Reports: No Limitations - History of Present Illness INITIAL COMMENTS - FREE TEXT/NARRATIVE: The patient presents with left eye redness. She works at [employer] unit and she was on the phone and she may have rubbed her eye. She felt there was something in her eye and went to look in the mirror and there was blood in her sclera. She has maybe some blurred vision. She has no eye pain. She does wear glasses. She goes to [facility] for her eye care because she has glaucoma. Onset: Gradual Duration: Hour(s): Improves with: Reports: None Worsens with: Reports: None Associated Symptoms: Reports: No Other Symptoms Left Eye Pain Score (Numeric/FACES): 8 - Related Data Allergies Allergy/AdvReac Type Severity Reaction Status Date / Time No Known Allergies Allergy Verified 06/13/19 12:27 Home Meds: Home Meds Calcium Carbonate/Vitamin D3 [Calcium 600 + Vit D 200] 2 tab PO BID 06/13/19 [History] Clopidogrel [Plavix] 75 mg PO DAILY 06/13/19 [History] Famotidine 20 mg PO BEDTIME 06/13/19 [History] Fluticasone Propionate [Flovent HFA 110 MCG] 1 puff INH BID 06/13/19 [History] Latanoprost [Xalatan] 1 drop EYEBOTH BEDTIME 06/13/19 [History] Magnesium Oxide 400 mg PO DAILY 06/13/19 [History] Potassium Chloride 30 meq PO DAILY 06/13/19 [History] Rosuvastatin [Crestor] 10 mg PO BEDTIME 06/13/19 [History] Salmeterol Xinafoate [Serevent Diskus] 1 blister INH BID 06/13/19 [History] Triamcinolone Acetonide [Triamcinolone Acetonide 0.1% Crm] 1 dose TOP BID PRN 06/13/19 [History] amLODIPine [Norvasc] 7.5 mg PO DAILY 06/13/19 [History] guaiFENesin [Mucinex] 1,200 mg PO BID PRN 06/13/19 [History] hydroCHLOROthiazide [Hydrochlorothiazide] 25 mg PO DAILY 06/13/19 [History] Acetaminophen [Tylenol] 650 mg PO Q4H PRN #90 tablet 06/18/19 [Rx] Aspirin [Ecotrin EC] 325 mg PO BID #62 tab.ec 06/18/19 [Rx] Cyclobenzaprine [Flexeril] 5 mg PO TID PRN #18 tablet 06/18/19 [Rx] Docusate Sodium [Colace] 100 mg PO BID PRN #24 cap 06/18/19 [Rx] polyethylene glycoL 3350 [MiraLAX] 17 gm PO DAILY PRN #10 packet 06/18/19 [Rx] Past Medical History HEENT History: Reports: Glaucoma, Impaired Vision Cardiovascular History: Reports: High Cholesterol, Hypertension Other Cardiovascular History: reports having clots removed from left leg Respiratory History: Reports: COPD 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 Endocrine/Metabolic History: Reports: Osteopenia, Osteoporosis Oncologic (Cancer) History: Reports: Lung - Infectious Disease History Infectious Disease History: Reports: Influenza, Measles, Mumps, Pertussis (Whooping Cough), Rubella - Past Surgical History HEENT Surgical History: Reports: Cataract Surgery Female Surgical History: Reports: Hysterectomy, Salpingo-Oophorectomy Musculoskeletal Surgical History: Reports: Other (See Below) Other Musculoskeletal Surgeries/Procedures:: tendon surgery on right arm Oncologic Surgical History: Reports: Biopsy of Breast, Lobectomy Other Oncologic Surgeries/Procedures: half of left lung Social & Family History - Family History Family Medical History: No Pertinent Family History - Tobacco Use Tobacco Use Status *Q: Former Tobacco User Used Tobacco, but Quit: Yes Month/Year Tobacco Last Used: 1988 - Caffeine Use Caffeine Use: Reports: Coffee, Tea Other Caffeine Use: 1 cup in the morning - Recreational Drug Use Recreational Drug Use: No - Living Situation & Occupation Living situation: Reports: Occupation: Employed (He is still working 45 hours a week.) ED ROS GENERAL - Review of Systems Review Of Systems: See Below Constitutional: Reports: No Symptoms HEENT: Reports: Other (subconjunctival hemorrhage) Respiratory: Reports: No Symptoms Cardiovascular: Reports: No Symptoms Endocrine: Reports: No Symptoms GI/Abdominal: Reports: No Symptoms : Reports: No Symptoms Musculoskeletal: Reports: No Symptoms ED EXAM GENERAL W FULL EYE - Physical Exam Exam: See Below Exam Limited By: No Limitations General Appearance: Alert, No Apparent Distress Eye Exam: Left Eye: Other (subconjunctival hemorrhage), Bilateral Eye: EOMI, PERRL Visual Acuity (R) 20/: 40 Visual Acuity (L) 20/: 40 Eyelids: Bilateral: Normal Appearance Conjunctiva & Sclera: Left: Subconjuctival Hemorrhage Cornea Exam: Left: Normal Appearance Extraocular Movements: Bilateral: Intact Pupillary Size: Bilateral: 3 mm Pupillary Reaction: Bilateral: Brisk Anterior Chamber: Left: Normal Appearance Course - Vital Signs Last Recorded V/S: Last Vital Signs Temp 97.6 F 01/27/21 17:09 Pulse 66 01/27/21 17:09 Resp 20 01/27/21 17:09 BP 168/72 H 01/27/21 17:09 Pulse Ox 98 01/27/21 17:09 - Orders/Labs/Meds Meds: Medications Discontinued Medications Generic Name Dose Route Start Last Admin Trade Name Freq PRN Reason Stop Dose Admin Fluorescein Sodium 1 mg 01/27/21 17:42 Fluorescein 1 Mg Ophth Strip EYELF 01/27/21 17:43 ONETIME ONE Proparacaine HCl 1 ml 01/27/21 17:45 Proparacaine 0.5% Ophth Soln 15 Ml Bottle EYELF 01/27/21 17:46 ONETIME ONE - Re-Assessments/Exams Free Text/Narrative Re-Assessment/Exam: 01/27/21 18:18 Her eye exam shows conjunctival hemorrhage. I will have her follow up with an combustion analyst in [facility] tomorrow. Departure - Departure Time of Disposition: 18:20 Disposition: Home, Self-Care 01 Condition: Good Clinical Impression: Subconjunctival hemorrhage of left eye - Discharge Information *PRESCRIPTION DRUG MONITORING PROGRAM REVIEWED*: Not Applicable *COPY OF PRESCRIPTION DRUG MONITORING REPORT IN PATIENT BRI: Not Applicable Referrals: Macey Orta MD [Primary Care Provider] - Additional Instructions: Keep taking your medications. Try to sleep with the head of your bed up tonight to reduce swelling. Follow up with an combustion analyst in town tomorrow. Please return if you are worse. Sepsis Event Note (ED) - Focused Exam Vital Signs: Vital Signs Temp Pulse Resp BP Pulse Ox 01/27/21 17:09 97.6 F 66 20 168/72 H 98
== END 2021-01-27 18:33 | disposition home or self-care (01) ==
LOC: JD.ED 16:49
DX: H11.32 Conjunctival hemorrhage, left eye (principal); E78.00 Pure hypercholesterolemia, unspecified; I10 Essential (primary) hypertension; J44.9 Chronic obstructive pulmonary disease, unspecified; Z79.02 Long term (current) use of antithrombotics/antiplatelets; Z79.899 Other long term (current) drug therapy; Z79.82 Long term (current) use of aspirin; Z87.891 Personal history of nicotine dependence
CPT/HCPCS: 99283

== ENCOUNTER 2021-08-03 12:45 | Emergency (ER) | payer MEDICARE, OTHER | END 2021-08-03 15:45 | disposition home or self-care (01) | LOC: JD.ED 12:45 | DX: I73.9 Peripheral vascular disease, unspecified (principal); I10 Essential (primary) hypertension; E78.00 Pure hypercholesterolemia, unspecified; J44.9 Chronic obstructive pulmonary disease, unspecified; Z79.899 Other long term (current) drug therapy | CPT/HCPCS: 36415; 80053; 85025; 85379; 85610; 85730; 93925; 93925-26; 99284; 99284-25 ==